=== PATIENT | female | born 1985 | race Caucasian/White ===

== ENCOUNTER → 2016-03-11 | Outpatient (CLI) | payer OTHER | LOC: M SLEEP 15:10 | PROVIDERS: ATTEND Nurse Practitioner Adult Health | DX: G47.30 Sleep apnea, unspecified (principal) ==

== ENCOUNTER → 2016-09-27 | Outpatient (REF) | payer OTHER | LOC: M LABDRWAD 20:58 → M LAB REF 20:58 | PROVIDERS: ATTEND Physician Assistant Medical | DX: M10.072 Idiopathic gout, left ankle and foot (principal) ==

== ENCOUNTER → 2016-12-08 | Outpatient (REF) | payer OTHER | LOC: M LAB REF 10:02 | PROVIDERS: ATTEND Physician Assistant | DX: N39.0 Urinary tract infection, site not specified (principal) ==

== ENCOUNTER → 2017-01-21 | Outpatient (REF) | payer OTHER | LOC: M SFHCADAM 14:58 | PROVIDERS: ATTEND Physician Assistant Medical | DX: E66.01 Morbid (severe) obesity due to excess calories (principal); F34.1 Dysthymic disorder; E89.2 Postprocedural hypoparathyroidism ==

== ENCOUNTER 2017-05-04 11:51 | Emergency (ER) | payer OTHER ==
[2017-05-04] MEDS: PERCOCET 5MG/325MG TAB PO (13:34)
[2017-05-04] MEDS: IPRATROPIUM 0.5MG/ALBUTEROL 2.5MG INH SOL UD 3ML (DUONEB)(J7620) NEB (13:37)
[2017-05-04 13:47] LABS: BASO # 0.1 10^3/uL (0.0-0.2); EOS # 0.8 10^3/uL (0.0-0.50); HEMATOCRIT 40.9 % (36.0-47.0); HEMOGLOBIN 14.4 g/dl (12.0-16.0); IMMATURE GRANULOCYTE % 0.3 % (0-3.0); LYMPH # 2.4 10^3/uL (1.5-6.5); LYMPH % 26.1 % (24.0-44.0); MEAN CORPUSCULAR HEMOGLOBIN 31.7 pg (27.0-33.0); MEAN CORPUSCULAR HGB CONC 35.2 g/dl (32.0-36.5); MEAN CORPUSCULAR VOLUME 90.1 fl (80.0-96.0); MONO # 0.5 10^3/uL (0.0-0.8); MONO % 5.2 % (0.0-5.0); NEUTROPHILS # 5.4 10^3/uL (1.8-7.7); NEUTROPHILS % 58.4 % (36.0-66.0); PLATELET COUNT, AUTOMATED 344 10^3/uL (150-450); RED BLOOD COUNT 4.54 10^6/uL (4.00-5.40); RED CELL DISTRIBUTION WIDTH 12.2 % (11.5-14.5); WHITE BLOOD COUNT 9.2 10^3/uL (4.0-10.0)
[2017-05-04 14:07] LABS: D-DIMER QUANT 439.2 ng/ml (<500)
[2017-05-04 14:27] LABS: ANION GAP 7 MEQ/L (8-16); BLOOD UREA NITROGEN 11 MG/DL (7-18); CALCIUM LEVEL 9.4 MG/DL (8.5-10.1); CARBON DIOXIDE LEVEL 26 MEQ/L (21-32); CHLORIDE LEVEL 108 MEQ/L (98-107); CPK CREATINE PHOSPHOKINASE 91 U/L (26-192); CREATININE FOR GFR 0.78 MG/DL (0.55-1.30); GLOMERULAR FILTRATION RATE > 60.0 (>60); GLUCOSE, FASTING 90 MG/DL (70-100); POTASSIUM SERUM 4.3 MEQ/L (3.5-5.1); SODIUM LEVEL 141 MEQ/L (136-145); TROPONIN I < 0.02 NG/ML (< 0.10)
[2017-05-04 14:32] LABS: MB/CK RELATIVE INDEX 1.09 (< OR =4)
[2017-05-04] MEDS ORDERED: ISOVUE-370 76% 100ML VIAL (Q9967) As Ordered (14:33)
== END 2017-05-04 16:27 | disposition home or self-care (01) ==
LOC: M ED 11:51
DX: K04.7 Periapical abscess without sinus (principal); J45.901 Unspecified asthma with (acute) exacerbation; E03.9 Hypothyroidism, unspecified; Z85.850 Personal history of malignant neoplasm of thyroid; Z88.2 Allergy status to sulfonamides; Z79.899 Other long term (current) drug therapy
CPT/HCPCS: Q9967

== ENCOUNTER → 2018-01-13 | Outpatient (REF) | payer OTHER ==
[2018-01-13 11:11] LABS: HEMATOCRIT 40.2 % (36.0-47.0); HEMOGLOBIN 13.4 g/dl (12.0-15.5); MEAN CORPUSCULAR HEMOGLOBIN 30.9 pg (27.0-33.0); MEAN CORPUSCULAR HGB CONC 33.3 g/dl (32.0-36.5); MEAN CORPUSCULAR VOLUME 92.6 fl (80.0-96.0); PLATELET COUNT, AUTOMATED 347 10^3/uL (150-450); RED BLOOD COUNT 4.34 10^6/uL (4.00-5.40); WHITE BLOOD COUNT 6.4 10^3/uL (4.0-10.0)
[2018-01-13 12:41] LABS: ALBUMIN 4.1 GM/DL (3.2-5.2); ALBUMIN/GLOBULIN RATIO 1.32 (1.00-1.93); ALKALINE PHOSPHATASE 60 U/L (45-117); ALT/SGPT 28 U/L (12-78); ANION GAP 13 MEQ/L (8-16); AST/SGOT 26 U/L (7-37); BILIRUBIN,TOTAL 0.2 MG/DL (0.2-1.0); BLOOD UREA NITROGEN 11 MG/DL (7-18); CALCIUM LEVEL 8.7 MG/DL (8.5-10.1); CARBON DIOXIDE LEVEL 19 MEQ/L (21-32); CHLORIDE LEVEL 108 MEQ/L (98-107); CHOLESTEROL LEVEL 148 MG/DL (<200); CHOLESTEROL RISK RATIO 4.352 (<5); CREATININE FOR GFR 0.82 MG/DL (0.55-1.30); FREE T4 1.36 NG/DL (0.76-1.46); GLOMERULAR FILTRATION RATE > 60.0 (>60); GLUCOSE, FASTING 76 MG/DL (70-100); HDL CHOLESTEROL 34 MG/DL (>40); LDL CHOLESTEROL 87 MG/DL (<100); NON-HDL-C 114 MG/DL; POTASSIUM SERUM 4.1 MEQ/L (3.5-5.1); SODIUM LEVEL 140 MEQ/L (136-145); THYROID STIMULATING HORMONE 0.966 uIU/ML (0.358-3.740); TOTAL 25(OH) VITAMIN D 31.2 NG/ML (30.0-100.0); TOTAL PROTEIN 7.2 GM/DL (6.4-8.2); TRIGLYCERIDES LEVEL 135 MG/DL (<150)
== END ==
LOC: M SFHCPLAZ 10:36
DX: C73 Malignant neoplasm of thyroid gland (principal); E89.0 Postprocedural hypothyroidism; Z13.220 Encounter for screening for lipoid disorders; E89.2 Postprocedural hypoparathyroidism
CPT/HCPCS: 84443

== ENCOUNTER → 2018-03-05 | Outpatient (CLI) | payer OTHER ==
[~2018-03-05] MED LIST: IBUP80TA PO; LEVO125T4 PO; PENI500T PO; PERC5TAB12 PO; PRED20TA PO; VENL75CA2 PO; VENTAER INH
--- NOTE | 2018-03-05 17:42 | REP ---
LUMBOSACRAL SPINE: Five views of the lumbosacral spine are performed. There is no compression fracture. There is normal lumbar lordosis with no evidence of spondylolysis or spondylolisthesis. Disc spaces appear well preserved. Posterior elements are intact. IMPRESSION: Negative lumbosacral spine series. Electronically Signed by Jose Maria Harris MD 03/12/2018 10:59 P
== END ==
LOC: M RAD 16:34
PROVIDERS: ATTEND Physician Assistant
DX: M54.5 Low back pain (principal)

== ENCOUNTER 2018-05-10 16:33 | Emergency (ER) | payer MEDICAID, OTHER ==
[~2018-05-10] VITALS: Ht 157.5 cm; Wt 100.5 kg
[2018-05-10] MEDS ORDERED: ACET-683 PO (16:38)
[2018-05-10] MEDS ORDERED: PRENCHW PO (16:38)
[2018-05-10] MEDS ORDERED: ACETAMINOPHEN 325 MG TAB PO ONE (17:00)
[2018-05-10 17:14] LABS: BASO # 0.1 10^3/uL (0.0-0.2); BASO % 0.7 % (0.0-1.0); EOS # 0.1 10^3/uL (0.0-0.50); EOS % 1.4 % (0.0-3.0); HEMATOCRIT 40.5 % (36.0-47.0); HEMOGLOBIN 13.6 g/dl (12.0-15.5); LYMPH # 2.7 10^3/uL (1.5-4.5); LYMPH % 26.7 % (24.0-44.0); MEAN CORPUSCULAR HEMOGLOBIN 30.4 pg (27.0-33.0); MEAN CORPUSCULAR HGB CONC 33.6 g/dl (32.0-36.5); MEAN CORPUSCULAR VOLUME 90.6 fl (80.0-96.0); MONO # 0.5 10^3/uL (0.0-0.8); NEUTROPHILS # 6.6 10^3/uL (1.8-7.7); NEUTROPHILS % 65.9 % (36.0-66.0); PLATELET COUNT, AUTOMATED 320 10^3/uL (150-450); RED BLOOD COUNT 4.47 10^6/uL (4.00-5.40)
[2018-05-10 18:11] LABS: BLOOD UREA NITROGEN 8 MG/DL (7-18); CALCIUM LEVEL 9.5 MG/DL (8.5-10.1); CARBON DIOXIDE LEVEL 27 MEQ/L (21-32); CHLORIDE LEVEL 105 MEQ/L (98-107); CREATININE FOR GFR 0.75 MG/DL (0.55-1.30); GLOMERULAR FILTRATION RATE > 60.0 (>60); GLUCOSE, FASTING 84 MG/DL (70-100); HCG, SERUM QUANTITATIVE 55105 MIU/ML; POTASSIUM SERUM 4.3 MEQ/L (3.5-5.1); SODIUM LEVEL 139 MEQ/L (136-145)
[2018-05-10] MEDS ORDERED: LACT10SO29 PO (19:26)
[2018-05-10 19:32] VITALS: BP 71/68
--- NOTE | 2018-05-10 20:06 | REPVR ---
EXAM: US First Trimester, Transabdominal EXAM DATE/TIME: 05/10/2018 6:42 PM CLINICAL HISTORY: 32 years and configuration, female; Pain; complicated by abdominal or pelvic pain; Left lower quadrant; First trimester; Gestational age or lmp: 7w 3d; ; Additional info: Left adenexal pain TECHNIQUE: Real-time transabdominal obstetrical ultrasound of the maternal pelvis and a first trimester , less than 14 weeks 0 days, with image documentation. COMPARISON: CR Spine. Lumbosacral, complete 03/05/2018 4:54 PM FINDINGS: GESTATION: Gestation: There is a intrauterine gestational sac seen within the uterus on the sagittal and transverse scans. The gestational sac is very oval and flattened at the central portion. Below the gestational sac there is a hypoechoic focus measuring approximately 1 CM which may represent an area of implantation bleed. The pole is estimated at 7 weeks 3 days measuring crown rump length. A well-formed yolk sac is identified measuring 3 mm. This is very early in gestation in all parameters cannot be assessed. Recommend a complete survey at 18-20 weeks gestation. Heart rate: There is good cardiac activity within the pole estimated at 150 beats per minute. Abdomen: Normal appearing urinary bladder. MATERNAL: Uterus: Unremarkable. Cervix: The normal appearing cervix. There is a nabothian cyst at the upper cervix. Right adnexa: There is vascular flow of the right ovary with no evidence of torsion. The right ovary measures 3 CM in length by 1.7 CM in thickness. There is a 2 CM hemorrhagic corpus luteum right ovary. Left adnexa: The left ovary measures 3 CM in length by 1.3 cm thickness there is vascular flow both the left ovary with no evidence of torsion. Intraperitoneal: No evidence of free fluid in the cul-de-sac. IMPRESSION: 1. An intrauterine gestational sac is identified but elongated and very oval in appearance. 2. pole identified and estimated at 7 weeks 3 days. Cardiac activity at 150 beats per minute. 3. Small area of presumed implantation bleed at the internal cervical os. Electronically signed by: Max Lentz On 05/10/2018 20:06:25 PM
== END 2018-05-10 19:41 | disposition home or self-care (01) ==
LOC: M ED 16:33
DX: O99.611 Diseases of the digestive system complicating pregnancy, first trimester (principal); K59.00 Constipation, unspecified; O20.8 Other hemorrhage in early pregnancy; O34.81 Maternal care for other abnormalities of pelvic organs, first trimester; N83.202 Unspecified ovarian cyst, left side; Z79.899 Other long term (current) drug therapy; Z88.2 Allergy status to sulfonamides; Z3A.01 Less than 8 weeks gestation of pregnancy

== ENCOUNTER → 2018-05-29 | Outpatient (CLI) | payer MEDICAID ==
[~2018-05-29] MED LIST changes: +ACET-683 PO; +LACT10SO29 PO; +PRENCHW PO
[2018-05-29 18:41] LABS: BASO # 0.1 10^3/uL (0.0-0.2); BASO % 0.4 % (0.0-1.0); EOS # 0.2 10^3/uL (0.0-0.50); EOS % 1.9 % (0.0-3.0); HEMATOCRIT 36.2 % (36.0-47.0); HEMOGLOBIN 12.4 g/dl (12.0-15.5); LYMPH # 2.9 10^3/uL (1.5-4.5); LYMPH % 23.8 % (24.0-44.0); MEAN CORPUSCULAR HEMOGLOBIN 31.2 pg (27.0-33.0); MEAN CORPUSCULAR HGB CONC 34.3 g/dl (32.0-36.5); MEAN CORPUSCULAR VOLUME 91.2 fl (80.0-96.0); MONO # 0.5 10^3/uL (0.0-0.8); MONO % 4.3 % (0.0-5.0); NEUTROPHILS # 8.3 10^3/uL (1.8-7.7); NEUTROPHILS % 69.2 % (36.0-66.0); PLATELET COUNT, AUTOMATED 365 10^3/uL (150-450); RED BLOOD COUNT 3.97 10^6/uL (4.00-5.40)
[2018-05-29 19:08] LABS: FREE T4 1.05 NG/DL (0.76-1.46)
[2018-05-29 19:21] LABS: RUBELLA IgG QUALITATIVE IMMUNE (IMMUNE)
[2018-05-29 19:50] LABS: HIV 1&2 SCREEN CENTAUR NEGATIVE (NEGATIVE)
[2018-05-29 20:13] LABS: CHLAMYDIA DNA AMPLIFICATION NEGATIVE (NEGATIVE); GC DNA AMPLIFICATION NEGATIVE (NEGATIVE)
[2018-06-01 10:56] LABS: HEPATITIS C VIRUS ABY INDEX 0.1 INDEX (<0.8)
== END ==
LOC: M SMT 15:37
PROVIDERS: ATTEND Obstetrics & Gynecology
DX: Z34.81 Encounter for supervision of other normal pregnancy, first trimester (principal)

== ENCOUNTER 2018-07-04 12:31 | Emergency (ER) | payer MEDICAID, OTHER ==
[~2018-07-04] VITALS: Ht 157.5 cm; Wt 98.2 kg
[2018-07-04] MEDS ORDERED: BUTA-198 (12:40)
[2018-07-04] MEDS ORDERED: BUPR150T3 (12:40)
[2018-07-04] MEDS ORDERED: FLUT1BLS5 (12:40)
[2018-07-04] MEDS ORDERED: METOCLOPRAMIDE INJ 10MG/2ML VIAL (J2765) IV ONE (13:30)
[2018-07-04] MEDS ORDERED: ACETAMINOPHEN 325 MG TAB PO ONE (13:30)
[2018-07-04] MEDS ORDERED: NS 1,000 ML IV ONE (13:30)
[2018-07-04] MEDS ORDERED: diphenhydrAMINE INJ 50MG/ML VIAL (J1200) IV ONE (13:30)
[2018-07-04 13:43] LABS: BASO % 0.4 % (0.0-1.0); EOS # 0.1 10^3/uL (0.0-0.50); EOS % 0.9 % (0.0-3.0); HEMATOCRIT 34.2 % (36.0-47.0); HEMOGLOBIN 11.7 g/dl (12.0-15.5); LYMPH % 19.2 % (24.0-44.0); MEAN CORPUSCULAR HGB CONC 34.2 g/dl (32.0-36.5); MEAN CORPUSCULAR VOLUME 90.7 fl (80.0-96.0); MONO # 0.5 10^3/uL (0.0-0.8); MONO % 4.5 % (0.0-5.0); NEUTROPHILS # 7.9 10^3/uL (1.8-7.7); NEUTROPHILS % 74.5 % (36.0-66.0); PLATELET COUNT, AUTOMATED 283 10^3/uL (150-450); RED BLOOD COUNT 3.77 10^6/uL (4.00-5.40); WHITE BLOOD COUNT 10.6 10^3/uL (4.0-10.0)
[2018-07-04 14:01] LABS: ERYTHROCYTE SEDIMENTATION RATE 46 mm/hr (0-20)
[2018-07-04 14:08] LABS: ALBUMIN 3.4 GM/DL (3.2-5.2); ALT/SGPT 10 U/L (12-78); BILIRUBIN,DIRECT < 0.1 MG/DL (0.0-0.2); BILIRUBIN,TOTAL 0.2 MG/DL (0.2-1.0); BLOOD UREA NITROGEN 4 MG/DL (7-18); CALCIUM LEVEL 8.6 MG/DL (8.5-10.1); CARBON DIOXIDE LEVEL 26 MEQ/L (21-32); CHLORIDE LEVEL 107 MEQ/L (98-107); CREATININE FOR GFR 0.59 MG/DL (0.55-1.30); GLOMERULAR FILTRATION RATE > 60.0 (>60); GLUCOSE, FASTING 98 MG/DL (70-100); MAGNESIUM LEVEL 1.8 MG/DL (1.8-2.4); POTASSIUM SERUM 3.7 MEQ/L (3.5-5.1); SODIUM LEVEL 139 MEQ/L (136-145); TOTAL PROTEIN 6.5 GM/DL (6.4-8.2); URIC ACID 3.9 MG/DL (2.6-6.0)
[2018-07-04] MEDS ORDERED: PERCOCET 5MG/325MG TAB PO ONE (14:45)
[2018-07-04] MEDS ORDERED: PERC5TAB12 PO (15:36)
[2018-07-04 15:40] VITALS: BP 109/59
--- NOTE | 2018-07-05 07:14 | REP ---
LIMITED OB ULTRASOUND: HISTORY: Unable to obtain heart rate. COMPARISON: 05/10/2018 A single intrauterine is present in vertex presentation. heart rate is 152 beats per minute. The placenta is posterior. There is no placenta previa or abruption. Amniotic fluid index is 7.8 cm. The amniotic fluid is within normal limits. Cervix length is 4.5 cm. IMPRESSION: A single intrauterine is present in vertex presentation. Gestational age by ultrasound is 15 weeks 2 days. heart rate is 152 beats per minute. A repeat examination at 19-20 weeks is recommended for further evaluation. Electronically Signed by Mukesh Tristan MD 07/05/2018 08:32 A
== END 2018-07-04 15:44 | disposition home or self-care (01) ==
LOC: M ED 12:31
DX: O99.352 Diseases of the nervous system complicating pregnancy, second trimester (principal); G43.909 Migraine, unspecified, not intractable, without status migrainosus; Z3A.15 15 weeks gestation of pregnancy; O99.512 Diseases of the respiratory system complicating pregnancy, second trimester; J45.909 Unspecified asthma, uncomplicated; O99.282 Endocrine, nutritional and metabolic diseases complicating pregnancy, second trimester; E07.9 Disorder of thyroid, unspecified; Z79.899 Other long term (current) drug therapy; Z88.1 Allergy status to other antibiotic agents; Z88.2 Allergy status to sulfonamides
CPT/HCPCS: 76815; 80048; 80076; 83735; 84550; 85025; 85652; 86140; 96361; 96374; 96375; 99284; J1200; J2765

== ENCOUNTER → 2018-07-24 | Outpatient (CLI) | payer OTHER ==
[~2018-07-24] MED LIST changes: +BUPR150T3; +BUTA-198; +FLUT1BLS5
--- NOTE | 2018-07-25 08:21 | REP ---
HISTORY: anatomy. COMPARISON: None. Multiple ultrasonographic images of the gravid uterus show a single living intrauterine gestation in the cephalic presentation. Doppler interrogation of the heart shows a heart rate of 142 beats per minute. The placenta is posterior and not low lying. The subjective amniotic fluid volume is within normal limits. The cervix measures 4.9 cm in length and is closed. Evaluation of the maternal adnexal spaces showed no abnormalities. BPD 4.0 cm = 18 weeks 2 days HC 15.1 cm = 18 weeks 1 day AC 13.2 cm = 18 weeks 5 days FL 2.8 cm = 18 weeks 5 days The estimated weight is 250 grams which is at the 68th percentile for an 18 week 1 day gestational age. Structures visualized as unremarkable are as follows: Thalami, cavum septum pellucidum, cerebellum, cisterna magna, stomach, three-vessel umbilical cord, cord insertion, and urinary bladder. Structures suboptimally visualized are as follows: facial features with upper lip, four chamber heart, right and left ventricular outflow tracts, kidneys, spine, and extremities. IMPRESSION: Single living intrauterine gestation as described above with an estimated gestational age of 18 weeks 3 days via composite criteria and an estimated date of delivery of 12/22/2018 by today's exam. No anomalies were detected, however, I recommend a followup examination to better visualize those structures not well seen today as described above. Electronically Signed by Quentin Gould DO 07/25/2018 08:34 A
== END ==
LOC: M RAD 16:23
PROVIDERS: ATTEND Specialist
DX: O09.212 Supervision of pregnancy with history of pre-term labor, second trimester (principal); Z3A.18 18 weeks gestation of pregnancy

== ENCOUNTER → 2018-08-12 | Outpatient (REF) | payer OTHER | LOC: M LAB REF 13:00 | PROVIDERS: ATTEND Advanced Practice Midwife | DX: O09.212 Supervision of pregnancy with history of pre-term labor, second trimester (principal); Z3A.20 20 weeks gestation of pregnancy; D04.22 Carcinoma in situ of skin of left ear and external auricular canal ==

== ENCOUNTER → 2018-08-14 | Outpatient (CLI) | payer OTHER ==
[2018-08-14 12:12] LABS: FREE T4 1.36 NG/DL (0.76-1.46); THYROID STIMULATING HORMONE 0.219 uIU/ML (0.358-3.740)
--- NOTE | 2018-08-14 15:34 | REP ---
REASON: Followup anatomy. The prior examination failed to optimally visualize facial features, four chamber heart, outflow tracts, kidneys, and spine. Multiple ultrasonographic images of the gravid uterus show a single living intrauterine gestation in the yas breech presentation. Doppler interrogation of the heart shows a heart rate of 136 beats per minutes. The placenta is posterior and not low lying. The subjective amniotic fluid volume is within normal limits. The cervix measures 4.3 cm in length and is closed. Evaluation of the maternal adnexal spaces shows no abnormalities. The technologist has made note in the worksheet that exam quality was poor due to maternal body habitus. The facial features were still suboptimally visualized. The four chamber heart view as well as both right and left ventricular outflow tracts were again suboptimally visualized. The kidneys were again seen suboptimally. The spine was seen to be within normal limits. BPD 4.7 cm = 20 weeks 1 day HC 17.8 cm = 20 weeks 2 days AC 15.9 cm = 21 weeks 0 days FL 3.4 cm = 20 weeks 6 days The estimated weight is 379 grams which is at the 37th percentile for a 21 week 1 day gestational age. IMPRESSION: Single living intrauterine gestation as described above with an estimated gestational age of 20 weeks 5 days via composite criteria and an estimated date of delivery of 12/27/2018. The anatomical screen remains incomplete with those structures seen suboptimally as described above. Electronically Signed by Quentin Gould DO 08/14/2018 04:47 P
== END ==
LOC: M RAD 09:41
PROVIDERS: ATTEND Advanced Practice Midwife
DX: Z34.82 Encounter for supervision of other normal pregnancy, second trimester (principal)

== ENCOUNTER → 2018-09-24 | Outpatient (CLI) | payer OTHER ==
--- NOTE | 2018-09-24 19:44 | REP ---
Obstetric sonography: History: Supervision of , followup anatomy. cardiac structures, face and profile, kidneys. Findings: Scanning through the gravid uterus demonstrates a viable single intrauterine gestation in a cephalic lie. motion is observed and heart rate is recorded at 131 beats per minute. A posterior grade 0 placenta is seen without evidence of previa or abruption. Amniotic fluid is subjectively normal. Closed cervical length is 4.6 cm. No extrauterine abnormalities observed. There has been appropriate interval growth. Umbilical cord is seen draping over the neck. No abnormality is observed. face and profile is still less than optimally seen. Abdominal wall cord insertion, three-vessel cord, and upper extremities are less than optimally seen today but were visualized previously. The following additional anatomic structures are identified today and are felt to be unremarkable: cranium, choroid plexus, cavum, cerebellum and posterior fossa, four-chamber heart with left and right ventricular outflow tract views, lungs, diaphragm, left-sided stomach, kidneys and bladder, spine, lower extremities. Biometry chart: BPD 6.4 cm = 25 weeks 6 days HC 24.4 cm = 26 weeks 4 days AC 23.1 cm = 27 weeks 3 days FL 5.1 cm = 27 weeks 3 days HL 4.5 cm = 26 weeks 5 days HC/AC ratio normal 1.06. Cephalic index normal 0.71. Estimated weight 1042 grams, 2 pounds 4 ounces, 48th percentile for 27 weeks 0 days. Impression: Viable single intrauterine gestation at 26 weeks 5 days by today's composite sonographic criteria. IONA by today's sonography December 26, 2018. face and profile view still less than optimally achieved due to position. anatomic survey is felt to be otherwise complete in conjunction with the prior study. Electronically Signed by Chava Villaseñor MD 09/25/2018 07:45 A
== END ==
LOC: M RAD 16:50
PROVIDERS: ATTEND Advanced Practice Midwife
DX: O09.212 Supervision of pregnancy with history of pre-term labor, second trimester (principal); Z3A.26 26 weeks gestation of pregnancy

== ENCOUNTER → 2018-10-07 | Outpatient (REF) | payer OTHER | LOC: M LAB REF 13:28 | PROVIDERS: ATTEND Advanced Practice Midwife | DX: O09.212 Supervision of pregnancy with history of pre-term labor, second trimester (principal) ==

== ENCOUNTER → 2018-10-09 | Outpatient (CLI) | payer OTHER ==
[2018-10-09 13:38] LABS: BASO % 0.3 % (0.0-1.0); EOS # 0.1 10^3/uL (0.0-0.50); HEMATOCRIT 33.5 % (36.0-47.0); HEMOGLOBIN 11.2 g/dl (12.0-15.5); LYMPH # 1.8 10^3/uL (1.5-4.5); MEAN CORPUSCULAR HEMOGLOBIN 31.4 pg (27.0-33.0); MEAN CORPUSCULAR HGB CONC 33.4 g/dl (32.0-36.5); MEAN CORPUSCULAR VOLUME 93.8 fl (80.0-96.0); MONO # 0.5 10^3/uL (0.0-0.8); MONO % 4.8 % (0.0-5.0); NEUTROPHILS # 8.5 10^3/uL (1.8-7.7); NEUTROPHILS % 76.6 % (36.0-66.0); PLATELET COUNT, AUTOMATED 331 10^3/uL (150-450); RED BLOOD COUNT 3.57 10^6/uL (4.00-5.40); WHITE BLOOD COUNT 11.1 10^3/uL (4.0-10.0)
[2018-10-09 13:59] LABS: FREE T4 0.84 NG/DL (0.76-1.46); THYROID STIMULATING HORMONE 0.427 uIU/ML (0.358-3.740)
== END ==
LOC: M LAB 11:43
PROVIDERS: ATTEND Advanced Practice Midwife
DX: O09.212 Supervision of pregnancy with history of pre-term labor, second trimester (principal); Z3A.00 Weeks of gestation of pregnancy not specified

== ENCOUNTER → 2018-10-12 | Outpatient (CLI) | payer OTHER ==
--- NOTE | 2018-10-13 06:00 | REP ---
Clinical: Anatomical evaluation. Comparison: Cephalic . Findings: Examination demonstrates a single live intrauterine in cephalic presentation. motion is identified by technologist. Placenta is noted posteriorly and grade I without evidence for placenta previa or abruption. Amniotic fluid volume is normal. Cervix measures 3.4 cm in length and appears closed. No evidence for nuchal cord. Gestational age by 29 weeks 4 days with IONA 12/24/2018 . Gestational age by current measurements 29 weeks 1 day with IONA 12/27/2016 . FHR equals 137 beats per minute. Estimated weight 1322 grams ( 29th percentile). Amniotic fluid index: 8.4 cm Umbilical cord SD ratio: 3.92 Normal facial features noted. Impression: Single live intrauterine in cephalic presentation demonstrating appropriate interval growth. Normal facial features noted. Remainder of the anatomical assessment was complete and normal on prior examinations. Electronically Signed by John Hawkins MD 10/13/2018 05:52 A
== END ==
LOC: M RAD 17:30
PROVIDERS: ATTEND Advanced Practice Midwife
DX: O09.212 Supervision of pregnancy with history of pre-term labor, second trimester (principal); Z3A.29 29 weeks gestation of pregnancy

== ENCOUNTER 2018-11-24 19:46 | Outpatient (CLI) | payer OTHER ==
[~2018-11-24] VITALS: Ht 157.5 cm; Wt 100.5 kg
== END 2018-11-24 21:35 | disposition home or self-care (01) ==
LOC: EDBD 19:46 → M LDO 19:46
PROVIDERS: ATTEND Obstetrics & Gynecology
DX: O36.8130 Decreased fetal movements, third trimester, not applicable or unspecified (principal); Z3A.36 36 weeks gestation of pregnancy

== ENCOUNTER → 2018-11-26 | Outpatient (REF) | payer OTHER ==
[~2018-11-26] MED LIST changes: +ZOLO50TA PO
== END ==
LOC: M LAB REF 18:12
PROVIDERS: ATTEND Advanced Practice Midwife
DX: Z34.83 Encounter for supervision of other normal pregnancy, third trimester (principal)

== ENCOUNTER 2018-11-29 21:21 | Outpatient (CLI) | payer OTHER ==
[~2018-11-29] VITALS: Ht 157.5 cm; Wt 99.6 kg
[~2018-11-29 21:21] MED LIST changes: -ZOLO50TA PO
[2018-11-29 21:36] VITALS: BP 129/67
[2018-11-29] MEDS ORDERED: ZOLO50TA PO (21:49)
== END 2018-11-30 01:08 | disposition home or self-care (01) ==
LOC: M LDO 21:21
PROVIDERS: ATTEND Specialist
DX: O47.03 False labor before 37 completed weeks of gestation, third trimester (principal); Z3A.36 36 weeks gestation of pregnancy

== ENCOUNTER 2018-12-13 16:49 | Outpatient (CLI) | payer OTHER ==
[~2018-12-13] VITALS: Ht 157.5 cm; Wt 103.2 kg
[~2018-12-13 16:49] MED LIST changes: +ZOLO50TA PO
[2018-12-13 17:08] VITALS: BP 131/81
[2018-12-13] MEDS ORDERED: LEVO200T4 PO (17:12)
== END 2018-12-13 17:54 | disposition home or self-care (01) ==
LOC: M LDO 16:49
PROVIDERS: ATTEND Obstetrics & Gynecology
DX: O47.1 False labor at or after 37 completed weeks of gestation (principal); Z3A.38 38 weeks gestation of pregnancy

== ENCOUNTER 2018-12-16 11:54 | Outpatient (CLI) | payer OTHER ==
[~2018-12-16] VITALS: Ht 157.5 cm; Wt 102.2 kg
[~2018-12-16 11:54] MED LIST changes: +LEVO200T4 PO
[2018-12-16 12:24] VITALS: BP 123/77
--- NOTE | 2018-12-16 13:40 | IPN ---
DATE: 12/16/2018 Livier is a 33-year-old 3, para 0-1-1-1 at 38-6/7 weeks with EDC of 12/24/2018 based on last menstrual period and confirmed by 8 week ultrasound. She presents to labor and delivery today with report of questionable leakage of fluid since about 11:30 last night. She does report some mild intermittent contractions. Denies vaginal bleeding. The fetus has been active. Her care was initiated at [facility] in the very first trimester. course complicated by a history of a delivery. She has been receiving Garcia injections from week 16 through week 36. She has a history of thyroid cancer and a thyroidectomy. She is on thyroid replacement, Synthroid 225 mcg daily. Asthma has been well controlled, history of an abnormal Pap and a history of depression, and she is currently taking Wellbutrin. OBSTETRICAL HISTORY: February 2015, 34 weeks gestation, 5 pound 12 ounce male, vaginal delivery following PPROM. December 2010 spontaneous miscarriage. OBSTETRIC LABS: O positive. Antibody screen negative. Abnormal Pap, was HPV positive. Rubella immune. VDRL nonreactive. Urine culture no growth. Hep B surface antigen negative. HIV negative. Hep C antibody nonreactive. Gonorrhea and chlamydia negative. Gestational diabetic screening normal at 114. Group B Streptococcus (GBS) is negative. Her most recent TSH is normal. PAST MEDICAL HISTORY: Depression. Thyroid cancer. Asthma. Seasonal allergies. Abnormal Pap smear. Childhood varicella. SURGERIES: Tonsillectomy. Thyroidectomy. FAMILY HISTORY: Hypertension, Raynaud's disease and depression. SOCIAL HISTORY: The patient is single however the father of the baby is involved. She denies smoking, alcohol use and illicit drug use. She does have a history of HPV. She denies history of abuse physical, sexual and emotional. ALLERGIES: 1. Seasonal allergies. 2. SULFA. CURRENT MEDICATIONS: - Zofran - Esgic - Advair - Wellbutrin - levothyroxine - albuterol - Pulmicort - vitamin OBJECTIVE: Blood pressure is 132/73, pulse is 90. heart rate is 135 with moderate variability, positive accelerations, no decelerations. Contractions every 5 minutes, nonpalpable. STERILE SPECULUM EXAM: Negative Valsalva. Negative pooling. Negative Nitrazine. Negative ferning. Sterile vaginal exam 2 cm dilated, 80% effaced, -2 station, posterior and soft, can palpate membranes across the head. ASSESSMENT: Intrauterine at 38-6/7 weeks. heart rate category 1. Not ruptured. PLAN: Discharge the patient to home. She is scheduled for social induction tomorrow. She has been advised of the instructions to await call pending labor and delivery census. I did review signs and symptoms of labor, movement counts, danger signs and access to care. Patient is agreeable to this plan and she has had all of her questions answered.
== END 2018-12-16 13:10 | disposition home or self-care (01) ==
LOC: M LDO 11:54
PROVIDERS: ATTEND Advanced Practice Midwife
DX: O47.1 False labor at or after 37 completed weeks of gestation (principal); Z3A.38 38 weeks gestation of pregnancy

== ENCOUNTER 2018-12-17 12:04 | Inpatient (IN) | payer OTHER ==
[~2018-12-17] VITALS: Ht 157.5 cm; Wt 102.0 kg
[2018-12-17] VITALS (37 sets, daily range): BP systolic 106–151; BP diastolic 58–98
[2018-12-17 12:52] LABS: HEMATOCRIT 37.5 % (36.0-47.0); HEMOGLOBIN 12.6 g/dl (12.0-15.5); MEAN CORPUSCULAR HEMOGLOBIN 30.6 pg (27.0-33.0); MEAN CORPUSCULAR HGB CONC 33.6 g/dl (32.0-36.5); PLATELET COUNT, AUTOMATED 289 10^3/uL (150-450); RED BLOOD COUNT 4.12 10^6/uL (4.00-5.40); WHITE BLOOD COUNT 10.2 10^3/uL (4.0-10.0)
[2018-12-17] MEDS: LR 1,000 ML IV SCH ×2 (13:48→16:15)
[2018-12-17] MEDS ORDERED: OXYTOCIN DRIP 30 UNITS in IV 1 EA IV SCH (14:00)
[2018-12-17] MEDS ORDERED: FENTANYL 2MCG/ML ROPIVACAINE 0.2% IN 0.9% NACL 100ML IVBAG As Ordered ONE (15:48)
[2018-12-17] MEDS ORDERED: FENTANYL/ROPIVACAINE/NACL BAG 100 ML EPIDURAL SCH (17:15)
[2018-12-17] MEDS ORDERED: NALOXONE INJ 0.4 MG/1 ML VIAL (J2310) IV PRN (17:15)
[2018-12-17] MEDS ORDERED: LACTATED RINGER'S 1000 ML IV PRN (17:15)
[2018-12-17] MEDS ORDERED: diphenhydrAMINE INJ 50MG/ML VIAL (J1200) IV PRN (17:15)
[2018-12-17] MEDS ORDERED: REFRIGERATOR IV KEYS XX PRN (17:15)
[2018-12-17] MEDS ORDERED: EPIDURAL COMMENT XX SCH (17:15)
[2018-12-17] MEDS ORDERED: EPIDURAL/PCA KEYS XX PRN (17:15)
[2018-12-17] MEDS ORDERED: ONDANSETRON 4MG/2ML VIAL (J2405) IV PRN (17:15)
[2018-12-17] MEDS ORDERED: LACTATED RINGER'S 1000 ML IV STA (17:21)
[2018-12-17] MEDS ORDERED: ALBUTEROL 90 MCG/ACT 8GM HFA INHALER INH PRN ×2 (17:30→19:24)
[2018-12-17] MEDS: ePHEDrine SULFATE 25 MG/5 ML(5MG/ML) SYRINGE IV PRN ×3 (18:28→18:41)
[2018-12-17] MEDS ORDERED: ACETAMINOPHEN 500 MG TAB PO PRN (22:15)
[2018-12-18 00:19] VITALS: BP 132/62
[2018-12-18 00:24] LABS: CORD GAS ABE V -4.8; CORD GAS HCO3 V 20.5 MEQ/L; CORD GAS O2 SAT V 68.3 %; CORD GAS PCO2 V 39.1 mmHg; CORD GAS PH V 7.337 UNITS; CORD GAS PO2 V 28.9 mmHg; CORD GAS SBC V 19.8 MEQ/L; CORD GAS TCO2 V 21.7 MEQ/L
[2018-12-18 00:25] LABS: CORD GAS ABE A -5.5; CORD GAS HCO3 A 24.2 MEQ/L; CORD GAS O2 SAT A 40.5 %; CORD GAS PH A 7.202 UNITS; CORD GAS PO2 A 20.7 mmHg; CORD GAS SBC A 18.5 MEQ/L; CORD GAS TCO2 A 26.1 MEQ/L
[2018-12-18] MEDS ORDERED: AMPICILLIN SOD/SULBACTAM SOD 3 GM in D5W MINI-BAG PLUS 100 ML IV ONE (00:30)
[2018-12-18] MEDS ORDERED: OXYTOCIN DRIP 30 UNITS in IV 1 EA IV SCH (00:31)
[2018-12-18] MEDS ORDERED: ONDANSETRON 4MG/2ML VIAL (J2405) IV PRN (00:45)
[2018-12-18] MEDS ORDERED: ACETAMINOPHEN TAB 650MG DOSE (2X325MG) PO PRN (00:45)
[2018-12-18] MEDS ORDERED: RHOGAM 300 MCG (1500 IU) INJ (J2790) IM SCH (00:45)
[2018-12-18] MEDS ORDERED: MOM 30ML SUSPENSION UDC PO PRN (00:45)
[2018-12-18] MEDS ORDERED: IBUPROFEN 600 MG TAB PO PRN (00:45)
[2018-12-18] MEDS ORDERED: MEASLES,MUMPS,RUBELLA VACCINE INJ (MMR-II) (90707) SC SCH (00:45)
[2018-12-18] MEDS ORDERED: DOCUSATE SODIUM 100 MG CAP PO PRN (00:45)
[2018-12-18] MEDS ORDERED: METHYLERGONOVINE MALEATE 0.2 MG TAB PO PRN (00:45)
[2018-12-18] MEDS ORDERED: ANUSOL HC CREAM 30GM TOP PRN (00:45)
[2018-12-18] MEDS ORDERED: DIBUCAINE 1% OINTMENT 30GM TOP PRN (00:45)
[2018-12-18 00:50] VITALS: BP 133/71
[2018-12-18 01:19] VITALS: BP 130/65
--- NOTE | 2018-12-18 02:54 | DN ---
DATE: 12/18/2018 TIME OF : 0004 GENDER: Female. SCORES: 8 and 9. WEIGHT: 6 pounds 7 ounces, 2930 grams. ANESTHESIA: Epidural. ESTIMATED BLOOD LOSS: 300 mL. COUNTS: Five laparotomy sponges accounted for prior to and after delivery. Two sharps removed from delivery field. CORD GAS: 7.20/7.33, base excess of -5.5/-4.8 respectively. DELIVERY NOTE: On 12/18/2018, at 0004, Ms. Zelaya, a 33-year-old 3, now para 2, had a spontaneous vaginal delivery of a live born female infant, scores 8 and 9. Weight was 2930 grams, 6 pounds 7 ounces. Head was delivered occiput anterior (OA) over intact perineum. There was a nuchal cord times two, which was manually reduced followed by delivery shoulders and corpus. was handed to mom with a good cry. Cord was clamped times two, was cut by support person under my direction. Cord gases were obtained. Placenta was then drained and delivered grossly intact. A premixed bag of 500 mL of normal saline with 30 units of Pitocin was then bolused along with uterine massage. The uterus was firm. On inspection, the cervix and perineum was grossly intact and hemostatic. Mom and baby recovered in stable condition. Shortly after delivery, Ms. Zelaya spiked a fever and she will receive one dose of Unasyn for treatment of chorioamnionitis. Mom has decided to name her daughter Shona. NERISSA
[2018-12-18 03:00] VITALS: BP 105/57
[2018-12-18] MEDS: IBUPROFEN 800 MG TAB PO PRN ×3 (03:23→20:31)
[2018-12-18 06:00] VITALS: BP 132/80
[2018-12-18] MEDS: LEVOTHYROXINE 100MCG TABLET (0.1MG) PO SCH (06:07)
[2018-12-18] MEDS: PRENATAL VITAMINS CHEWABLE TABLET PO SCH (09:09)
[2018-12-18] MEDS: ACETAMINOPHEN 500 MG TAB PO PRN ×2 (09:10→18:03)
[2018-12-18 17:57] VITALS: BP 129/80
[2018-12-19] MEDS: ACETAMINOPHEN 500 MG TAB PO PRN ×2 (01:20→10:30)
[2018-12-19 05:29] VITALS: BP 113/57
[2018-12-19] MEDS: LEVOTHYROXINE 100MCG TABLET (0.1MG) PO SCH (06:26)
[2018-12-19] MEDS: IBUPROFEN 800 MG TAB PO PRN ×2 (06:26→18:48)
--- NOTE | 2018-12-19 07:13 | IPNPDOC ---
Text Note Date of Service The patient was seen on 12/19/18. NOTE Feels well. Adequate pain management. Voiding VSS, afebrile, normotensive Fundus firm, NT, down 2 Lochia rubra light without odor Perineum well approximated without edema PPD #1 Routine care. Anticipate D/C in am VS,Fishbone, I+O VS, Fishbone, I+O Vital Signs Date Time Temp Pulse Resp B/P (MAP) Pulse Ox O2 Delivery O2 Flow Rate FiO2 12/19/18 05:29 98.2 54 16 113/57 (75) 12/18/18 06:00 96 Alexia Yusuf CNM Dec 19, 2018 07:13
[2018-12-19] MEDS ORDERED: INFLUENZA QUADRIVALENT PF VACCINE 0.5ML SYRINGE (90686) IM ONE ×2 (09:00→12:00)
[2018-12-19] MEDS ORDERED: ADACEL/BOOSTRIX VACCINE (DIPHTH/PERTUSS/ACELL/TETANUS)0.5ML SYR (90715) IM ONE ×2 (09:00→12:00)
[2018-12-19] MEDS: PRENATAL VITAMINS CHEWABLE TABLET PO SCH (10:30)
[2018-12-19 18:00] VITALS: BP 129/83
[2018-12-20] MEDS: LEVOTHYROXINE 100MCG TABLET (0.1MG) PO SCH (05:41)
[2018-12-20 06:15] VITALS: BP 128/65
[2018-12-20] MEDS: PRENATAL VITAMINS CHEWABLE TABLET PO SCH (08:52)
[2018-12-20] MEDS ORDERED: IBUP80TA PO (11:25)
[2018-12-20] MEDS: ACETAMINOPHEN 500 MG TAB PO PRN (11:34)
== END 2018-12-20 15:00 | disposition home or self-care (01) | DRG 560 ==
LOC: M LDI 12:04 → M OBS 12-18 02:39
PROVIDERS: ADMIT Obstetrics & Gynecology; ATTEND Obstetrics & Gynecology
PROC: 3E033VJ Introduction of Other Hormone into Peripheral Vein, Percutaneous Approach (ICD-10-PCS; 2018-12-17)
PROC: 10E0XZZ Delivery of Products of Conception, External Approach (ICD-10-PCS; principal; 2018-12-18)
DX: O69.1XX0 Labor and delivery complicated by cord around neck, with compression, not applicable or unspecified (principal); O41.1230 Chorioamnionitis, third trimester, not applicable or unspecified; O99.344 Other mental disorders complicating childbirth; Z3A.39 39 weeks gestation of pregnancy; O99.284 Endocrine, nutritional and metabolic diseases complicating childbirth; E89.0 Postprocedural hypothyroidism; F32.9 Major depressive disorder, single episode, unspecified; Z37.0 Single live birth

== ENCOUNTER 2019-08-13 12:42 | Day surgery (SDC) | payer OTHER ==
[~2019-08-13] VITALS: Ht 157.5 cm; Wt 107.5 kg
[~2019-08-13 12:42] MED LIST changes: +ABIL1TAB11 PO; +ABIL1TAB13 PO; +BUPR150T3 PO; +BUSP10TA PO; -LACT10SO29 PO; +LACT20EL PO; +LR 1,000 ML IV ONE; +WELLTAB40 PO
[2019-08-13 13:14] LABS: HEMATOCRIT 41.2 % (36.0-47.0); HEMOGLOBIN 13.7 g/dl (12.0-15.5); MEAN CORPUSCULAR HEMOGLOBIN 30.8 pg (27.0-33.0); MEAN CORPUSCULAR HGB CONC 33.3 g/dl (32.0-36.5); MEAN CORPUSCULAR VOLUME 92.6 fl (80.0-96.0); PLATELET COUNT, AUTOMATED 358 10^3/uL (150-450); RED BLOOD COUNT 4.45 10^6/uL (4.00-5.40); WHITE BLOOD COUNT 8.4 10^3/uL (4.0-10.0)
[2019-08-13] MEDS ORDERED: PERC5TAB12 PO (14:02)
[2019-08-13] MEDS ORDERED: IBUP1TAB7 PO (14:04)
[2019-08-13] MEDS ORDERED: BUPIVACAINE HCL 0.25% 30ML VIAL As Ordered ONE (14:05)
--- NOTE | 2019-08-13 14:09 | ROOPDOC ---
[facility] Report Of Operation Report of Operation DATE OF PROCEDURE: 08/13/19 PREPROCEDURE DIAGNOSES: Satisfied parity with undesired fertility. POSTPROCEDURE DIAGNOSES: Satisfied parity with undesired fertility. PROCEDURE: Diagnostic operative laparoscopy with bilateral salpingectomy for purpose of tubal ligation.. SURGEON: Arely Culp MD FACILITIES OFFICER: None ANESTHESIA: General endotracheal anesthesia. INTRAVENOUS FLUIDS: 900 mL of lactated Ringer's solution. ESTIMATED BLOOD LOSS: Approximately 5 mL. URINE OUTPUT: 100 mL. PREOPERATIVE ANTIBIOTICS: None. SPECIMENS: Bilateral fallopian tubes. COMPLICATIONS: None OPERATIVE FINDINGS: Patient with normal appearing uterus, bilateral adnexa. Appendix was visualized, appeared to be normal. DESCRIPTION OF PROCEDURE: After informed consent was obtained and written consent was reviewed, the patient was brought to the operating room where she was placed under general endotracheal anesthesia. She was then placed in the lithotomy position. She was prepped and draped in a normal sterile fashion. A time-out in the operating room was then performed identifying the patient, procedure to be performed, as well as drug allergies. Dubach speculum was then placed revealing the cervix. The anterior lip of the cervix was grasped with a single-tooth tenaculum. A Hulka tenaculum was then advanced through the cervical os for a means to manipulate the uterus. Single-tooth tenaculum as well as the speculum was removed. Valdovinos catheter was then placed and set to gravity. Gloves were changed. Attention was turned to the patient's abdomen where 0.25% Marcaine was infused in umbilical region. This area was incised and a 5 mm trocar and sleeve was advanced through this incision. The laparoscope was then replaced revealing intraabdominal placement. Pneumoperitoneum was then obtained with CO2 gas. The abdomen was then surveyed with the above-noted findings. Two additional port sites were placed. One port site was placed 2 cm above the pubis symphysis in the midline. This area was infused with 0.25% Marcaine. An incision was made in this area and 8 mm trocar and sleeve was advanced through this incision under direct visualization. A second accessory port was placed left side of the patient's abdomen. This area was infused with 0.25% Marcaine. A 5 mm trocar and sleeve was advanced through this incision under direct visualization. Next, the right fallopian tube was then placed on traction. Using Harmonic Al scalpel device, the mesosalpinx was dissected underneath the fallopian tube and was transected at the level of the uterus. Specimen was then brought out the port site. In a similar fashion, left fallopian tube was dissected along the left mesosalpinx underneath the fallopian tube and transected at the level of the uterus. The specimen was removed. Surgical sites were inspected and noted to be hemostatic. Pneumoperitoneum was then released and port sites were then closed with #4-0 Monocryl and was dressed with Dermabond. Valdovinos catheter as well as a Hulka tenaculum was removed. The patient was then taken out of the lithotomy position, was awakened from general anesthesia and taken to recovery in stable condition. Counts were correct. . ARELY CULP MD. Aug 13, 2019 14:09
[2019-08-13] MEDS ORDERED: KETOROLAC 60 MG/2 ML VIAL As Ordered ONE (14:31)
[2019-08-13] MEDS ORDERED: fentaNYL 100 MCG/2 ML INJECTION (J3010) As Ordered ONE ×2 (14:31→15:19)
[2019-08-13] MEDS ORDERED: HYDROmorphone HCL 2 MG/ML 1ML VIAL (J1170) As Ordered ONE (14:31)
[2019-08-13] MEDS ORDERED: ROCURONIUM BROMIDE 50 MG/5 ML VIAL As Ordered ONE (14:31)
[2019-08-13] MEDS ORDERED: propofoL 200 MG/20 ML VIAL As Ordered ONE (14:31)
[2019-08-13] MEDS ORDERED: SUGAMMADEX SODIUM 500 MG/5 ML VIAL (BRIDION) As Ordered ONE (14:31)
[2019-08-13] MEDS ORDERED: LIDOCAINE 2% 100MG/5ML SDV (FOR ANES.) As Ordered ONE (14:31)
[2019-08-13] MEDS ORDERED: MIDAZOLAM INJ 2MG/2ML VIAL (J2250 PER 1MG) As Ordered ONE (14:31)
[2019-08-13] MEDS ORDERED: PHENYLephrine HCL 500 MCG/5 ML (100MCG/ML) SYRINGE (J2370) As Ordered ONE (14:33)
[2019-08-13] MEDS ORDERED: GLYCOPYRROLATE INJ 0.2 MG/ML 2 ML VIAL As Ordered ONE (14:58)
[2019-08-13] MEDS ORDERED: oxyCODONE 5MG TAB As Ordered ONE (15:19)
[2019-08-13] MEDS ORDERED: HYDROMORPHONE HCL 0.5 MG/ 0.5 ML SYRINGE (J1170 PER 1) IV PRN (15:30)
[2019-08-13] MEDS ORDERED: PERCOCET 5MG/325MG TAB PO PRN (15:30)
[2019-08-13] MEDS ORDERED: ONDANSETRON 4MG/2ML VIAL IV PRN (15:30)
[2019-08-13] MEDS ORDERED: fentaNYL 100 MCG/2 ML INJECTION (J3010) IV PRN (15:30)
[2019-08-13] MEDS ORDERED: LR 1,000 ML IV SCH (15:30)
[2019-08-13] MEDS ORDERED: oxyCODONE 5MG TAB PO PRN (15:30)
[2019-08-13 16:15] VITALS: BP 118/73
[2019-08-13] MEDS ORDERED: KETOROLAC 30 MG/ML 1ML VIAL IV SCH (20:00)
== END 2019-08-13 17:03 | disposition home or self-care (01) ==
LOC: M SDC 12:42
PROVIDERS: ATTEND Obstetrics & Gynecology
DX: Z30.2 Encounter for sterilization (principal); E03.9 Hypothyroidism, unspecified; J45.909 Unspecified asthma, uncomplicated; G47.30 Sleep apnea, unspecified; F41.9 Anxiety disorder, unspecified; F32.9 Major depressive disorder, single episode, unspecified; Z88.2 Allergy status to sulfonamides; G43.909 Migraine, unspecified, not intractable, without status migrainosus; Z79.899 Other long term (current) drug therapy; Z85.850 Personal history of malignant neoplasm of thyroid
CPT/HCPCS: 36415; 58661; 81025; 85027; 86850; 86900; 86901; 88302; J1170; J1885; J2250; J2370; J3010

== ENCOUNTER → 2019-12-01 | Outpatient (CLI) | payer OTHER ==
[~2019-12-01] MED LIST changes: +IBUP1TAB7 PO; -LR 1,000 ML IV ONE
--- NOTE | 2019-12-08 13:47 | SLEEPHOME ---
DATE: 12/01/2019 ORDERED BY: Dr. Gloria Sneed Diagnostic home sleep testing was performed due to concern for the obstructive sleep apnea syndrome in this patient with a history of excessive somnolence, morning, headaches, and nonrestorative sleep. For testing, a nocturnal T3 respiratory monitoring device was used. Continuous record was made of pulse, oxygen saturation, air flow, chest and abdominal strain, and body position. There was 9 hours nondistended 59 minutes of data reviewed. There was 9 hours and 11 minutes marked as time in bed. During the interval marked time in bed, there were 55 respiratory events identified of 10 seconds in duration or greater for a respiratory event index of 6. The events were primarily obstructive. Baseline pulse rate 60 beats per minute. Pulse rate ranged 45-101. Baseline saturation 94%. Saturations fell to 84%. Testing was performed in the both the supine and nonsupine positions. IMPRESSION: Abnormal home sleep testing with repetitive respiratory events and oxygen desaturations to 84% with a respiratory event index of 6 is consistent with the obstructive sleep apnea syndrome (G47.33). RECOMMENDATION: The patient should be encouraged to undergo formal sleep evaluation. MTDD
== END ==
LOC: M SLEEP HO 11:24
PROVIDERS: ATTEND Nurse Practitioner Family
DX: G47.33 Obstructive sleep apnea (adult) (pediatric) (principal)

== ENCOUNTER → 2020-03-07 | Outpatient (REF) | payer SELFPAY | LOC: EDSTATUS 10:30 → M LABSMTC 10:38 | PROVIDERS: ATTEND Pediatrics | DX: Z20.828 Contact with and (suspected) exposure to other viral communicable diseases (principal) ==

== ENCOUNTER → 2020-03-09 | Outpatient (REF) | payer OTHER | LOC: M LAB REF 09:12 | DX: C73 Malignant neoplasm of thyroid gland (principal); E89.0 Postprocedural hypothyroidism ==

== ENCOUNTER 2020-07-02 21:13 | Emergency (ER) | payer OTHER ==
[~2020-07-02] VITALS: Ht 157.5 cm; Wt 89.5 kg
[~2020-07-02 21:13] MED LIST changes: +BUPR150T12; +BUPR150T12 PO; -BUPR150T3; -BUPR150T3 PO
[2020-07-02] MEDS ORDERED: LAMI25CH PO (21:22)
[2020-07-02] MEDS ORDERED: VIIB20TA PO (21:22)
[2020-07-02] MEDS ORDERED: methylPREDNISolone 125MG 2ML VIAL IV ONE (22:10)
[2020-07-02] MEDS: COMBIVENT RESPIMAT 100-20MCG INHALER 4GM INH SCH ×3 (22:13→22:55)
[2020-07-02 22:36] LABS: BASO # 0.1 10^3/uL (0.0-0.2); BASO % 0.7 % (0.0-1.0); EOS # 1.6 10^3/uL (0.0-0.5); HEMOGLOBIN 13.7 g/dl (12.0-15.5); LYMPH # 2.1 10^3/uL (1.5-5.0); LYMPH % 19.9 % (24.0-44.0); MEAN CORPUSCULAR HGB CONC 34.3 g/dl (32.0-36.5); MEAN CORPUSCULAR VOLUME 90.5 fl (80.0-96.0); MONO # 0.6 10^3/uL (0.0-0.8); NEUTROPHILS # 6.2 10^3/uL (1.5-8.5); PLATELET COUNT, AUTOMATED 303 10^3/uL (150-450); RED BLOOD COUNT 4.42 10^6/uL (4.00-5.40); WHITE BLOOD COUNT 10.7 10^3/uL (4.0-10.0)
[2020-07-02 23:12] LABS: MONO REFLEX EBV COMP NEGATIVE (NEGATIVE); RSV AMPLIFICATION NEGATIVE (NEGATIVE)
--- NOTE | 2020-07-02 23:38 | REPVR ---
PROCEDURE INFORMATION: Exam: XR Chest Exam date and time: 07/02/2020 10:59 PM Age: 34 years old Clinical indication: Cough and shortness of breath and wheezing; Additional info: Wheezing, cough, SOB TECHNIQUE: Imaging protocol: XR of the chest. Views: 1 view. COMPARISON: CT ANGIO CHEST 05/04/2017 3:00 PM FINDINGS: Lungs: The lungs appear clear and there is no evidence of localized infiltrate. Pleural spaces: There is no evidence of pneumothorax or pleural effusion. Heart/Mediastinum: The heart is normal in size. Bones/joints: Unremarkable. IMPRESSION: Clear appearing lungs Electronically signed by: Max Lentz On 07/02/2020 23:37:38 PM
[2020-07-03] MEDS ORDERED: AMOXICILLIN 500 MG CAP PO ONE (00:15)
[2020-07-03] MEDS ORDERED: AMOX500C PO (00:15)
[2020-07-03] MEDS ORDERED: PRED20TA PO (00:15)
[2020-07-03 00:33] VITALS: BP 142/82
[2020-07-04 14:09] LABS: EBV VIRAL CAPSID AG IgG >600.0 U/mL (0.0-17.9); EBV VIRAL CAPSID AG IgM <36.0 U/mL (0.0-35.9)
== END 2020-07-03 00:36 | disposition home or self-care (01) ==
LOC: M ED 21:13
DX: J45.901 Unspecified asthma with (acute) exacerbation (principal); J02.9 Acute pharyngitis, unspecified; E03.9 Hypothyroidism, unspecified; Z98.84 Bariatric surgery status; Z79.899 Other long term (current) drug therapy; Z79.890 Hormone replacement therapy; Z88.1 Allergy status to other antibiotic agents; Z88.2 Allergy status to sulfonamides; F17.210 Nicotine dependence, cigarettes, uncomplicated
CPT/HCPCS: 71045; 85025; 86308; 86664; 86665; 87631; 87880; 94640; 96374; 99284; J2930

== ENCOUNTER → 2020-12-21 | Outpatient (REF) | payer OTHER ==
[~2020-12-21] MED LIST changes: +AMOX500C PO; +LAMI25CH PO; +VIIB20TA PO
[2020-12-21 14:05] LABS: APPEARANCE, URINE CLOUDY (CLEAR); BACTERIA, URINE AUTO NEGATIVE (NEGATIVE); BILIRUBIN, URINE AUTO NEGATIVE (NEGATIVE); BLOOD, URINE BLOOD NEGATIVE (NEGATIVE); COLOR, URINE YELLOW (YELLOW); GLUCOSE, URINE (UA) AUTO NEGATIVE (NEGATIVE); KETONE, URINE AUTO NEGATIVE (NEGATIVE); LEUKOCYTE ESTERASE, URINE AUTO NEGATIVE (NEGATIVE); MUCUS, URINE SMALL (NEGATIVE); NITRITE, URINE AUTO NEGATIVE (NEGATIVE); PROTEIN, URINE AUTO 1+ mg/dL (NEGATIVE); RBC, URINE AUTO 1 /HPF (0-3); SPECIFIC GRAVITY URINE AUTO 1.027 (1.002-1.035); SQUAMOUS EPITHELIAL CELL UR AU 3 /HPF (0-6); UROBILINOGEN, URINE AUTO 0.2 mg/dL (0.0-2.0); WBC, URINE AUTO 0 /HPF (0-3)
== END ==
LOC: M LAB REF 12:37
PROVIDERS: ATTEND Physician Assistant
DX: R30.0 Dysuria (principal)

== ENCOUNTER → 2021-01-22 | Outpatient (REF) ==
[~2021-01-22] MED LIST changes: +AMPH1CAP16; +LAMO100T3; +VIIB40TA
== END ==
LOC: M LABSMTC 10:48
PROVIDERS: ATTEND Pediatrics
DX: Z11.52 Encounter for screening for COVID-19 (principal); Z20.822 Contact with and (suspected) exposure to COVID-19

== ENCOUNTER 2021-01-23 16:20 | Emergency (ER) | payer OTHER ==
[~2021-01-23] VITALS: Ht 157.5 cm; Wt 77.7 kg
[~2021-01-23 16:20] MED LIST changes: -AMPH1CAP16; -LAMO100T3; -VIIB40TA
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
--- OUTSIDE RECORDS SUMMARY | 2021-01-23 16:27 | CCD | Continuity of Care Document ---
Author Author Sophia HENDERSON DO Organization Unknown Address [address], [address] [place] [address] Phone [phone] Care Team Providers Care Psychotherapist Social Worker Name Role Phone Lakia Moore M.D. AUTM [phone] Wolfgang Brito M.D. AUTM [phone] Brenden Henderson DO AUTM [phone] Problems Active Problems Provider Date Anxiety Onset: Asthma Onset: Depressive disorder Onset: Electrocardiogram abnormal Onset: Ex-smoker Onset: Gout Onset: Malignant tumor of thyroid gland Onset: Morbid obesity Onset: Obstructive sleep apnea syndrome Onset: Right upper quadrant pain Onset: 0 000 Vitamin D deficiency Onset: Iron deficiency Pam Diaz NP Onset: 2019 Note: pt needs to start Slo-Fe 1 tab wilder ly Social History Type Date Description Comments Sex Unknown ETOH Use Occasionally consumes alcohol Tobacco Use Start: Unknown End: Unknown Patient is a former smoker Allergies, Adverse Reactions, Alerts Active Allergies Criticality Reaction | Severity Comments Date Sulfa Unable to assess criticality 09/23/2019 Medications Active Medications SIG Qnty Indications Ordering Provide r Date Nystatin 176965Rekr/GM Powder apply by topical route 2 times every day to the affected area(s) 60gm Brenden Henderson DO 10/02/2020 Childrens Chewable Multivitamin With Iro n Chewtabs 2 by mouth every day 60units Pam Dean on, SOLE ASSESSOR 04/18/2020 Calcium 500 +D [id number] Tabl ets 2 by mouth daily 60tabs Pam Diaz NP 04/18 [facility] Vitamin B12 1000mcg Tablets 1 tab SL every day 30tabs Pam Diaz NP 04/18 Aripiprazole 2mg Tablets 1 by mouth every day Unknown Bupropion Hydrochloride ER (XL) 150mg Tablets ER 24HR 1 by mouth every day Unknown Buspirone HCL 10mg Tablets 1 by mouth three times a day needed Unknown Levothyroxine Sodium 200mcg Tablet s 1 by mouth every day Unknown Sertraline HCL 50mg Tablets 1 by mouth every day Unknown Topiramate 50mg Tablets 1 tab by mouth AT bedtime Unknown Methylprednisolone 4mg Tablets take 6 tabs day 1, take 5 tabs day 2, take 4 tabs day 3, take 3 tabs on day 4, take 2 tabs day 5, take 1 tab on day 6 Unknown Omeprazole 40mg Capsules DR 1 by mouth every day Unknown Immunizations Description No Information Available Vital Signs Date Vital Result Comment 08/01/2020 2:17pm Weight 184.00 lb 04/18/2020 3:57pm Weight 190.38 lb Results Description No Information Available Procedures Date Code Description Status 10/31/2020 26851 Office/Outpatient Established Lo w MDM 20-29 Min Completed 08/01/2020 99494 Office/Outpatient Established Lo w MDM 20-29 Min Completed Medical Devices Description No Information Available Encounters Type Date Location Provider Dx Diagnosis Office Visit 10/31/2020 9:30a [facility] Brenden Henderson DO E66.3 Overweight G47.33 Obstructive sleep apnea (jennifer lt) (pediatric) E03.9 Hypothyroidism, unspecified Z98.84 Bariatric surgery status Z68.27 Body mass index [BMI] 27.0-2 7.9, adult Office Visit 08/01/2020 2:00p [facility] Pam Cai NP Z98.84 Bariatric surgery status Z98.51 Tubal ligation status J45.909 Unspecified asthma, uncompli cated G47.33 Obstructive sleep apnea (jennifer lt) (pediatric) E66.9 Obesity, unspecified Z68.41 Body mass index [BMI] 40.0-4 4.9, adult Assessments Date Code Description Provider 10/31/2020 E66.3 Overweight Brenden Henderson, 10/31/2020 G47.33 Obstructive sleep apnea (adult) (pediatric) Brenden Henderson, 10/31/2020 E03.9 Hypothyroidism, unspecified Alberto Henderson, DO 10/31/2020 Z98.84 Bariatric surgery status Brenden Henderson, 10/31/2020 Z68.27 Body mass index [BMI] 27.0-27.9, adult Brenden Henderson DO 08/01/2020 Z98.84 Bariatric surgery status Jared Diaz, SINDHU 08/01/2020 Z98.51 Tubal ligation status Pam Diaz, SINDHU 08/01/2020 J45.909 Unspecified asthma, uncomplicate d Pam Diaz, SINDHU 08/01/2020 G47.33 Obstructive sleep apnea (adult) (pediatric) Pam Hall, SINDHU 08/01/2020 E66.9 Obesity, unspecified Pam Ralph NP 08/01/2020 Z68.41 Body mass index [BMI]40.0-44.9, adult Pam Diaz NP Plan of Treatment Future Appointment(s):* 02/16/2021 9:30 am - Brenden Henderson DO at [facility] Services 10/31/2020 - Brenden Henderson DO* E66.3 Overweight * G47.33 Obstructive sleep apnea (adult) (pediatric) * E03.9 Hypothyroidism, unspecified * Z98.84 Bariatric surgery status* Comments:* This appointment was completed via telemedicine. Two factor authentication was confirmed with name and . Verbal consent to participate in telemedicine visit was obtained. The patient is currently in [facility]. Patient was informed that visit was not recorded, taped or kept on file. The patient was informed that there was a scribe present. Patient was informed that they have the right to the same confidentiality with telehealth under the same laws that protect confiden tiality of their medical record information for in-person treatment. Any information disclosed by them during the course of their treatment is confidential. Patient was informed that there is no one else that can overhear the conversation in the office. Patient states that the following people were with them to overhear their conversation:Total time spent on telemedicine was: 5 minutesOverall think she is doing well. She continues to lose weight. I think she is making good food choices for the most part. I will see her in 3 months. * Z68.27 Body mass index [BMI] 27.0-27.9, adult Functional Status Description No Information Available Mental Status Description No Information Available Referrals Description No Information Available"
--- OUTSIDE RECORDS SUMMARY | 2021-01-23 16:27 | CCD | Continuity of Care Document ---
Author Author Sophia HENDERSON DO Organization Unknown Address [address], [address] [place] [address] Phone [phone] Care Team Providers Care Manager In Training Name Role Phone Lakia Moore M.D. AUTM [phone] Wolfgang Brito M.D. AUTM [phone] Brenden Henderson DO AUTM [phone] Problems Active Problems Provider Date Anxiety Onset: [...] Qnty Indications Ordering Provide r Date Nystatin 595499Qowa/GM Powder apply by topical route 2 times every day to the affected area(s) 60gm Brenden Henderson DO 10/02/2020 Childrens Chewable Multivitamin With Iro n Chewtabs 2 by mouth every day 60units Pam Dean on, FINAL OPERATIONS TECHNICIAN 04/18/2020 Calcium 500 +D [id number] Tabl ets 2 by mouth daily 60tabs [...] Available Procedures Date Code Description Status 10/31/2020 04491 Office/Outpatient Established SF MDM 10-19 Min Completed 08/01/2020 84171 Office/Outpatient Established Lo w MDM 20-29 Min Completed Medical Devices Description No Information Available Encounters Type Date Location Provider Dx Diagnosis Office Visit 10/31/2020 9:30a [facility] Brenden Henderson DO E66.9 Obesity, unspecified G47.33 Obstructive sleep apnea (jennifer lt) (pediatric) E03.9 Hypothyroidism, unspecified Z98.84 Bariatric surgery status Office Visit 08/01/2020 2:00p [facility] Pam Cai NP Z98.84 Bariatric surgery status Z98.51 Tubal ligation status J45.909 Unspecified asthma, uncompli cated G47.33 Obstructive sleep apnea (jennifer lt) (pediatric) E66.9 Obesity, unspecified Z68.41 Body mass index [BMI] 40.0-4 4.9, adult Assessments Date Code Description Provider 10/31/2020 E66.9 Obesity, unspecified Brenden allen, DO 10/31/2020 G47.33 Obstructive sleep apnea (adult) (pediatric) Brenden Henderson DO 10/31/2020 E03.9 Hypothyroidism, unspecified Alberto Henderson, 10/31/2020 Z98.84 Bariatric surgery status Brenden Henderson, 08/01/2020 Z98.84 Bariatric surgery status Jared Diaz, SINDHU 08/01/2020 Z98.51 Tubal ligation status Pam Diaz, SINDHU 08/01/2020 J45.909 Unspecified asthma, uncomplicate d Pam Diaz, SINDHU 08/01/2020 G47.33 Obstructive sleep apnea (adult) (pediatric) Pam Hall NP 08/01/2020 E66.9 Obesity, unspecified Pam Ralph NP 08/01/2020 Z68.41 Body mass index [BMI]40.0-44.9, adult Pam Diaz NP Plan of Treatment Future Appointment(s):* 02/16/2021 9:30 am - Brenden Henderson DO at [facility] Services 10/31/2020 - Brenden Henderson DO* E66.9 Obesity, unspecified * G47.33 Obstructive sleep apnea (adult) (pediatric) * E03.9 Hypothyroidism, unspecified * Z98.84 Bariatric surgery status* Comments:* This appointment was completed via telemedicine. Two factor authentication was confirmed with name and . Verbal consent to participate in telemedicine visit was obtained. The patient is currently in [facility]. Patient was informed that visit was not [...] I will see her in 3 months. Functional Status Description No Information Available Mental Status Description No Information Available Referrals Description No Information Available"
--- OUTSIDE RECORDS SUMMARY | 2021-01-23 16:27 | CCD ---
Author Organization Unknown Address [address] [place] [id number] Phone [phone] Care Team Providers Care Anger Control Counselor Name Role Phone Hanane Tpaia Unavailable Unavailable Allergies Code Code System Name Reaction Severity Status Onset Sulfa (Sulfonamide Antibiotics) Hives Moderate to Severe Active Notes: Environmental Allergies. Some allergies listed in Documents: #[id number], #[id number] could not be added to this patient's chart. Please review these documents and add these allergies to the patient's chart manually as needed. Medications Name Status Start Date Stop Date Adderall 20 mg tablet Take 1 tablet every day by oral route in the morning. Active Not available albuterol sulfate HFA 90 mcg/actuation a erosol inhaler INHALE 1 TO 2 PUFFS BY MOUTH EVERY 4 HOURS NEEDED FOR WHEEZING Active Not available amoxicillin 500 mg capsule [...] 01/19/2020 buspirone 10 mg tablet Completed 0 Euthyrox 200 mcg tablet TAKE 1 TABLET BY MOUTH ONCE DAILY FOR 6 DAYS PER WEEK AND 1.5 TABLETS 1 DAY PER WEEK Active Not available hydroxyzine HCl 25 mg tablet Take 1 tablet twice a day by oral route. Active Not available ibuprofen 800 mg tablet TAKE 1 TABLET BY MOUTH EVERY 8 HOURS NEEDED FOR PAIN Completed 01/19/2020 Incruse Ellipta 62.5 mcg/actuation powde r for inhalation INHALE 1 PUFF BY MOUTH ONCE DAILY Active Not a vailable Lamictal 25 mg tablet Take 2 tablets every day by oral route. Active Not available Nystop 100,000 unit/gram topical powder Active Not [...] TABLETS BY MOUTH ONCE DAILY Completed 11/09 sertraline 50 mg tablet Completed 01/19/20 topiramate 50 mg tablet Completed 12/02/19 Viibryd 10 mg tablet TAKE 1 TABLET BY MOUTH ONCE DAILY IN THE MORNING Completed 04/14/2020 Viibryd 20 mg tablet TAKE 1 TABLET BY MOUTH ONCE DAILY IN THE MORNING Active Not available Notes: Some medications listed in Docume nts: #[id number], #[id number] could not be added to this patient's [...] 10/12/2020 Attention Deficit Hyperactivity Disorder Active 021 Procedures Date Name Performed by 01/24/2020 Laparoscopic Sleeve Gastrectomy Informat ion not available 08/13/2019 Bilateral Tubal Ligation Information not available 03/10/2011 Thyroidectomy Information not avai lable Tonsillectomy and Adenoidectomy Informat ion not available Results Lab Results Date Name Specimen Result Interpretation Description Value Range Status Address 07/02/2020 CBC W/ Auto Diff High White Blood Count 10.7 10 4.0-10.0 10 Final [facility]: [address] [facility] Normal Red Blood Count 4.42 10 4.00-5.40 10 [facility]: [address] [facility] Normal Hemoglobin 13.7 g/dL 12.0-15.5 g/dL Final [facility]: [address] [place] [address] Normal Hematocrit 40.0 % 36.0-47.0 % [facility]: [address] [place] [address] Normal Mean Corpuscular Volume 90.5 fL 80.0 -96.0 fL Final [facility]: [address] [place] [address] Normal Mean Corpuscular Hemoglobin 31.0 pg 27.0-33.0 pg [facility]: [address] [place] [address] Normal Mean Corpuscular HGB Conc 34.3 g/dL 32.0-36.5 g/dL [facility]: [address] [place] [address] Normal Red Cell Distribution Width 12.1 % 1 1.5-14.5 % [facility]: [address] [place] [address] Normal Platelet Count, Automated 303 10 150 -450 10 [facility]: 0 [facility] Normal Neutrophils % 58.0 % 36.0-66.0 % [facility]: [address] [place] [address] Low Lymph % 19.9 % 24.0-44.0 % [facility]: [address] [place] [address] Normal Rolette % 6.0 % 2.0-8.0 % Final [facility]: [address] [place] [address] High Eos % 15.0 % 0.0-3.0 % [facility]: [address] [place] [address] Normal Baso % 0.7 % 0.0-1.0 % [facility]: [address] [place] [address] Normal Immature Granulocyte % 0.4 % 0-3.0 % [facility]: [address] [place] [address] Normal Nucleated Red Blood Cell % 0.0 % 0- 0 % [facility]: [address] [place] [address] Normal Neutrophils # 6.2 10 1.5-8.5 10 [facility]: [address] [facility] Normal Lymph # 2.1 10 1.5-5.0 10 [facility]: [address] [facility] Normal Rolette # 0.6 10 0.0-0.8 10 [facility]: [address] [facility] High Eos # 1.6 10 0.0-0.5 10 [facility]: [address] [facility] Normal Baso # 0.1 10 0.0-0.2 10 [facility]: [address] [facility] 07/02/2020 Influenza A/B RSV Covid Amp Normal Influenza a Amplification negative negative [facility]: [address] [facility] Normal Influenza B Amplification negative n egative [facility]: [address] [facility] Normal RSV Amplification negative negative [facility]: [address] [facility] Normal Sars Covid-19 Amplification negative negative [facility]: [address] [facility] 07/02/2020 Rolette Reflex Ebv Comprehensive Normal [place] Reflex Ebv Comp negative negative [facility] nter: [address] [facility] 07/02/2020 Ebv Ab Comprehensive Normal Ebv Viral Capsi d Ag IgM <36.0 U/mL 0.0-35.9 U/mL [facility]: [address] [facility] High Ebv Viral Capsid Ag IgG >600.0 U/mL 0.0-17.9 U/mL [facility]: [address] [facility] High Ebv Ab to Nuclear Antigen 433.0 U/mL 0.0-17.9 U/mL [facility]: [address] [facility] Normal Ebv Interpretation . Damian [facility]: [address] [facility] Past Encounters 12/01/2020 Mixed Anxiety and Depressive Disorder; Attention Deficit Hyperactivity Disorder, Predominantly Inattentive Type Brittaney Artis, NPP: [address] [place] [address], Ph. 10/12/2020 Allergic Rhinitis; Asthma; Bipolar Disorder Hyacinth Ham PA-C: [address] [place] [address], Ph. 04/14/2020 Adult Health Examination; Hypothyroidism; Mixed Anxiety and Depressive Disorder; Obstructive Sleep Apnea Syndrome; Moderate Persistent Asthma Hyacinth Ham PA-C: [address] [place] [address], Ph. 01/19/2020 Pre-surgery Evaluation; Obesity; Moderate Persistent Asthma; Hypothyroidism; Obstructive Sleep Apnea Syndrome; Mixed Anxiety and Depressive Disorder Hyacinth Ham PA-C: [address] [place] [address], Ph. Social History Tobacco Smoking Status Former Smoker (1/4 pack per day) Note s: Pt states used to smoke only 3-4 cigs/day. Vaccine List Vaccine Type COVID-19, mRNA, LNP-S, PF, 100 mcg/0.5 m L dose 05/19/2020 influenza, injectable, quadrivalent 12/09/2019 pneumococcal polysaccharide PPV23 02/03/2018 Plan of Care Reminders Provider Appointments None recorded. Lab None recorded. Referral None recorded. Procedures None recorded. Surgeries None recorded. Imaging None recorded. Vitals 12/01/2020 01:00PM TELEPSYCH 60 Height Weight BMI 62 in 181 lbs 16 oz 33.3 kg/m2 10/12/2020 10:20AM ESTABLISHED [id number] Height Weight BMI Blood Pressure 62 in [...]
--- OUTSIDE RECORDS SUMMARY | 2021-01-23 16:29 | CCD ---
Author Author [facility] Organization [facility] Address Unknown Phone Unavailable Support Name Relationship Address Phone ELISABETH ARCOS Next Of Kin [id number] [place] [address] SMC* Next Of Kin [address] [place] [address] YANIRA ARCOSIAN Next Of Kin [address] [place] [address] Unavailable Debbie Lantigua Next Of Kin Unknown Unavailable [facility] Next Of Kin [address] [place] [address] Hanane Mosqudea Next Of Kin [address] [place] [address] DEBBIE PARR Next Of Kin Unknown Unavailable [facility] Next Of Kin [id number] [place] [address] [place] [address] SSV* Next Of Kin [address] [place] [address] MARCO BOUCHER Next Of Kin [address] [place] [address] UNK Next Of Kin Unknown Unavailable [place] [address] RODDY MERCADO Next Of Kin [address] [place] [address] UE Next Of Kin Unknown Unavailable DEBBIE BOUCHER Next Of Kin [address] [place] [address] HOME HEALTH AIDE Next Of Kin [address] [place] [address] Unavailable QUETA MERCADO Next Of Kin [id number] [place] [address] [place] [address] UNKNOWN Next Of Kin Unknown Unavailable Debbie Boucher [address] [place] [address] [phone] Care Team Providers Care Translator And Interpreter Name Role Phone SANTIAGO, M BRENDEN DO Unavailable Unavailable SANTIAGO, M BRENDEN DO Unavailable Unavailable SANTIAGO, M BRENDEN DO Unavailable Unavailable SANTIAGO, M BRENDEN DO Unavailable Unavailable SANTIAGO, M BRENDEN DO Unavailable Unavailable SANTIAGO, M BRENDEN DO Unavailable Unavailable SANTIAGO, M BRENDEN DO Unavailable Unavailable SANTIAGO, M BRENDEN DO Unavailable Unavailable SANTIAGO, M BRENDEN DO Unavailable Unavailable SANTIAGO, M BRENDEN DO Unavailable Unavailable SANTIAGO, M BRENDEN DO Unavailable Unavailable SANTIAGO, M BRENDEN DO Unavailable Unavailable SANTIAGO, M BRENDEN DO Unavailable Unavailable SANTIAGO, M BRENDEN DO Unavailable Unavailable SANTIAGO, M BRENDEN DO Unavailable Unavailable SANTIAGO, M BRENDEN DO Unavailable Unavailable SANTIAGO, M BRENDEN DO Unavailable Unavailable SANTIAGO, M BRENDEN DO Unavailable Unavailable SANTIAGO, M BRENDEN DO Unavailable Unavailable SANTIAGO, M BRENDEN DO Unavailable Unavailable SANTIAGO, M BRENDEN DO Unavailable Unavailable SANTIAGO, M BRENDEN DO Unavailable Unavailable SANTIAGO, M BRENDEN DO Unavailable Unavailable SANTIAGO, M BRENDEN DO Unavailable Unavailable SANTIAGO, M BRENDEN DO Unavailable Unavailable SANTIAGO, M BRENDEN DO Unavailable Unavailable SANTIAGO, M BRENDEN DO Unavailable Unavailable SANTIAGO, M BRENDEN DO Unavailable Unavailable SANTIAGO, M BRENDEN DO Unavailable Unavailable SANTIAGO, M BRENDEN DO Unavailable Unavailable SANTIAGO, M BRENDEN DO Unavailable Unavailable SANTIAGO, M BRENDEN DO Unavailable Unavailable SANTIAGO, M BRENDEN DO Unavailable Unavailable SANTIAGO, M BRENDEN DO Unavailable Unavailable SANTIAGO, M BRENDEN DO Unavailable Unavailable SANTIAGO, M BRENDEN DO Unavailable Unavailable SANTIAGO, M BRENDEN DO Unavailable Unavailable SANTIAGO, M BRENDEN DO Unavailable Unavailable SANTIAGO, M BRENDEN DO Unavailable Unavailable SANTIAGO, M BRNEDEN DO Unavailable Unavailable SANTIAGO, M BRENDEN DO Unavailable Unavailable SANTIAGO, M BRENDEN DO Unavailable Unavailable SANTIAGO, M BRENDEN DO Unavailable Unavailable SANTIAGO, M BRENDEN DO Unavailable Unavailable SANTIAGO, M BRENDEN DO Unavailable Unavailable SANTIAGO, M BRENDEN DO Unavailable Unavailable SANTIAGO, M BRENDEN DO Unavailable Unavailable SANTIAGO, M BRENDEN DO Unavailable Unavailable SANTIAGO, M BRENDEN DO Unavailable Unavailable SANTIAGO, M BRENDEN DO Unavailable Unavailable SANTIAGO, M BRENDEN DO Unavailable Unavailable SANTIAGO, M BRENDEN DO Unavailable Unavailable SANTIAGO, M BRENDEN DO Unavailable Unavailable SANTIAGO, M BRENDEN DO Unavailable Unavailable SANTIAGO, M BRENDEN DO Unavailable Unavailable SANTIAGO, M BRENDEN DO Unavailable Unavailable SANTIAGO, M BRENDEN DO Unavailable Unavailable SANTIAGO, M BRENDEN DO Unavailable Unavailable SANTIAGO, M BRENDEN DO Unavailable Unavailable SANTIAGO, M BRENDEN DO Unavailable Unavailable SANTIAGO, M BRENDEN DO Unavailable Unavailable SANTIAGO, M BRENDEN DO Unavailable Unavailable SANTIAGO, M BRENDEN DO Unavailable Unavailable SANTIAGO, M BRENDEN DO Unavailable Unavailable SANTIAGO, M BRENDEN DO Unavailable Unavailable SANTIAGO, M BRENDEN DO Unavailable Unavailable SANTIAGO, M BRENDEN DO Unavailable Unavailable SANTIAGO, M BRENDEN DO Unavailable Unavailable SANTIAGO, M BRENDEN DO Unavailable Unavailable Hanane Tapia PRINT INSPECTOR PRINT INSPECTOR Unavailable Unavailable Machelle Toribio Unavailable [phone] XU, BRITTANEY PERSONAL COMPANION Unavailable Unavailable XU, BRITTANEY PERSONAL COMPANION Unavailable Unavailable XU, BRITTANEY PERSONAL COMPANION Unavailable Unavailable XU, BRITTANEY PERSONAL COMPANION Unavailable Unavailable XU, BRITTANEY PERSONAL COMPANION Unavailable Unavailable XU, BRITTANEY PERSONAL COMPANION Unavailable Unavailable XU, BRITTANEY PERSONAL COMPANION Unavailable Unavailable Green PERSONAL COMPANION PERSONAL COMPANION, Aziza Unavailable Unavailable Green PERSONAL COMPANION PERSONAL COMPANION, Aziza Unavailable Unavailable Green PERSONAL COMPANION PERSONAL COMPANION, Aziza Unavailable Unavailable Green PERSONAL COMPANION PERSONAL COMPANION, Aziza Unavailable Unavailable Green PERSONAL COMPANION PERSONAL COMPANION, Aziza Unavailable Unavailable SANTIAGO, M BRENDEN DO Unavailable Unavailable SANTIAGO, M BRENDEN DO Unavailable Unavailable SANTIAGO, M BRENDEN DO Unavailable Unavailable SANTIAGO, M BRENDEN DO Unavailable Unavailable SANTIAGO, M BRENDEN DO Unavailable Unavailable SANTIAGO, M BRENDEN DO Unavailable Unavailable SANTIAGO, M BRENDEN DO Unavailable Unavailable SANTIAGO, M BRENDEN DO Unavailable Unavailable SANTIAGO, M BRENDEN DO Unavailable Unavailable ASNTIAGO, M BRENDEN DO Unavailable Unavailable SANTIAGO, M BRENDEN DO Unavailable Unavailable SANTIAGO, M BRENDEN DO Unavailable Unavailable SANTIAGO, M BRENDEN DO Unavailable Unavailable SANTIAGO, M BRENDEN DO Unavailable Unavailable SANTIAGO, M BRENDEN DO Unavailable Unavailable SANTIAGO, M BRENDEN DO Unavailable Unavailable SANTIAGO, M BRENDEN DO Unavailable Unavailable SANTIAGO, M BRENDEN DO Unavailable Unavailable SANTIAGO, M BRENDEN DO Unavailable Unavailable SANTIAGO, M BRENDEN DO Unavailable Unavailable SANTIAGO, M BRENDEN DO Unavailable Unavailable SANTIAGO, M BRENDEN DO Unavailable Unavailable SANTIAGO, M BRENDEN DO Unavailable Unavailable SANTIAGO, M BRENDEN DO Unavailable Unavailable SANTIAGO, M BRENDEN DO Unavailable Unavailable SANTIAGO, M BRENDEN DO Unavailable Unavailable SANTIAGO, M BRENDEN DO Unavailable Unavailable SANTIAGO, M BRENDEN DO Unavailable Unavailable SANTIAGO, M BRENDEN DO Unavailable Unavailable SANTIAGO, M BRENDEN DO Unavailable Unavailable SANTIAGO, M BRENDEN DO Unavailable Unavailable SANTIAGO, M BRENDEN DO Unavailable Unavailable SANTIAGO, M BRENDEN DO Unavailable Unavailable SANTIAGO, M BRENDEN DO Unavailable Unavailable SANTIAGO, M BRENDEN DO Unavailable Unavailable SANTIAGO, M BRENDEN DO Unavailable Unavailable SANTIAGO, M BRENDEN DO Unavailable Unavailable SANTIAGO, M BRENDEN DO Unavailable Unavailable SANTIAGO, M BRENDEN DO Unavailable Unavailable SANTIAGO, M BRENDEN DO Unavailable Unavailable SANTIAGO, M BRENDEN DO Unavailable Unavailable SANTIAGO, M BRENDEN DO Unavailable Unavailable SANTIAGO, M BRENDEN DO Unavailable Unavailable SANTIAGO, M BRENDEN DO Unavailable Unavailable SANTIAGO, M BRENDEN DO Unavailable Unavailable SANTIAGO, M BRENDEN DO Unavailable Unavailable SANTIAGO, M BRENDEN DO Unavailable Unavailable SANTIAGO, M BRENDEN DO Unavailable Unavailable SANTIAGO, M BRENDEN DO Unavailable Unavailable SANTIAGO, M BRENDEN DO Unavailable Unavailable SANTIAGO, M BRENDEN DO Unavailable Unavailable SANTIAGO, M BRENDEN DO Unavailable Unavailable SANTIAGO, M BRENDEN DO Unavailable Unavailable SANTIAGO, M BRENDEN DO Unavailable Unavailable SANTIAGO, M BRENDEN DO Unavailable Unavailable SANTIAGO, M BRENDEN DO Unavailable Unavailable SANTIAGO, M BRENDEN DO Unavailable Unavailable SANTIAGO, M BRENDEN DO Unavailable Unavailable SANTIAGO, M BRENDEN DO Unavailable Unavailable SANTIAGO, M BRENDEN DO Unavailable Unavailable SANTIAGO, M BRENDEN DO Unavailable Unavailable SANTIAGO, M BRENDEN DO Unavailable Unavailable SANTIAGO, M BRENDEN DO Unavailable Unavailable SANTIAGO, M BRENDEN DO Unavailable Unavailable SANTIAGO, M BRENDEN DO Unavailable Unavailable SANTIAGO, M BRENDEN DO Unavailable Unavailable SANTIAGO, M BRENDEN DO Unavailable Unavailable SANTIAGO, M BRENDEN DO Unavailable Unavailable SANTIAGO, M BRENDEN DO Unavailable Unavailable CHERYL, H AGATHA PERSONAL COMPANION Unavailable Unavailable CHERYL, H AGATHA PERSONAL COMPANION Unavailable Unavailable CHERYL, H AGATHA PERSONAL COMPANION Unavailable Unavailable CHERYL, H AGATHA PERSONAL COMPANION Unavailable Unavailable CHERYL, H AGATHA PERSONAL COMPANION Unavailable Unavailable CHERYL, H AGATHA PERSONAL COMPANION Unavailable Unavailable CHERYL, H AGATHA PERSONAL COMPANION Unavailable Unavailable CHERYL, H AGATHA PERSONAL COMPANION Unavailable Unavailable CHERYL, H AGATHA PERSONAL COMPANION Unavailable Unavailable NICKIE, ALICE PA Unavailable Unavailable NICKIE, ALICE PA Unavailable Unavailable NICKIE, ALICE PA Unavailable Unavailable NICKIE, ALICE PA Unavailable Unavailable NICKIE, ALICE PA Unavailable Unavailable NICKIE, ALICE PA Unavailable Unavailable NICKIE, ALICE PA Unavailable Unavailable NICKIE, ALICE PA Unavailable Unavailable NICKIE, ALICE PA Unavailable Unavailable NICKIE, ALICE PA Unavailable Unavailable NICKIE, ALICE PA Unavailable Unavailable NICKIE, ALICE PA Unavailable Unavailable NICKIE, ALICE PA Unavailable Unavailable NICKIE, ALICE PA Unavailable Unavailable NICKIE, ALICE PA Unavailable Unavailable NICKIE, ALICE PA Unavailable Unavailable NICKIE, ALICE PA Unavailable Unavailable NICKIE, ALICE PA Unavailable Unavailable NICKIE, ALICE PA Unavailable Unavailable NICKIE, ALICE PA Unavailable Unavailable NICKIE, ALICE PA Unavailable Unavailable NICKIE, ALICE PA Unavailable Unavailable NICKIE, ALICE PA Unavailable Unavailable NICKIE, ALICE PA Unavailable Unavailable NICKIE, ALICE PA Unavailable Unavailable NICKIE, ALICE PA Unavailable Unavailable NICKIE, ALICE PA Unavailable Unavailable NICKIE, ALICE PA Unavailable Unavailable NICKIE, ALICE PA Unavailable Unavailable NICKIE, ALICE PA Unavailable Unavailable NICKIE, ALICE PA Unavailable Unavailable NICKIE, ALICE PA Unavailable Unavailable NICKIE, ALICE PA Unavailable Unavailable NICKIE, ALICE PA Unavailable Unavailable NICKIE, ALICE PA Unavailable Unavailable NICKIE, ALICE PA Unavailable Unavailable NICKIE, ALICE PA Unavailable Unavailable NICKIE, ALICE PA Unavailable Unavailable SANTIAGO, M BRENDEN DO Unavailable Unavailable SANTIAGO, M BRENDEN DO Unavailable Unavailable SANTIAGO, M BRENDEN DO Unavailable Unavailable SANTIAGO, M BRENDEN DO Unavailable Unavailable SANTIAGO, M BRENDEN DO Unavailable Unavailable SANTIAGO, M BRENDEN DO Unavailable Unavailable SANTIAGO, M BRENDEN DO Unavailable Unavailable SANTIAGO, M BRENDEN DO Unavailable Unavailable SANTIAGO, M BRENDEN DO Unavailable Unavailable SANTIAGO, M BRENDEN DO Unavailable Unavailable SANTIAGO, M BRENDEN DO Unavailable Unavailable SANTIAGO, M BRENDNE DO Unavailable Unavailable SANTIAGO, M BRENDEN DO Unavailable Unavailable SANTIAGO, M BRENDEN DO Unavailable Unavailable SANTIAGO, M BRENDEN DO Unavailable Unavailable SANTIAGO, M BRENDEN DO Unavailable Unavailable SANTIAGO, M BRENDEN DO Unavailable Unavailable SANTIAGO, M BRENDEN DO Unavailable Unavailable SANTIAGO, M BRENDEN DO Unavailable Unavailable SANTIAGO, M BRENDEN DO Unavailable Unavailable SANTIAGO, M BRENDEN DO Unavailable Unavailable SANTIAGO, M BRENDEN DO Unavailable Unavailable SANTIAGO, M BRENDEN DO Unavailable Unavailable SANTIAGO, M BRENDEN DO Unavailable Unavailable SANTIAGO, M BRENDEN DO Unavailable Unavailable SANTIAGO, M BRENDEN DO Unavailable Unavailable SANTIAGO, M BRENDEN DO Unavailable Unavailable SANTIAGO, M BRENDEN DO Unavailable Unavailable SANTIAGO, M BRENDEN DO Unavailable Unavailable SANTIAGO, M BRENDEN DO Unavailable Unavailable SANTIAGO, M BRENDNE DO Unavailable Unavailable SANTIAGO, M BRENDEN DO Unavailable Unavailable SANTIAGO, M BRENDEN DO Unavailable Unavailable SANTIAGO, M BRENDEN DO Unavailable Unavailable SANTIAGO, M BRENDEN DO Unavailable Unavailable SANTIAGO, M BRENDEN DO Unavailable Unavailable SANTIAGO, M BRENDEN DO Unavailable Unavailable SANTIAGO, M BRENDEN DO Unavailable Unavailable SANTIAGO, M BRENDEN DO Unavailable Unavailable SANTIAGO, M BRENDEN DO Unavailable Unavailable SANTIAGO, M BRENDEN DO Unavailable Unavailable SANTIAGO, M BRENDEN DO Unavailable Unavailable SANTIAGO, M BRENDEN DO Unavailable Unavailable SANTIAGO, M BRENDEN DO Unavailable Unavailable SANTIAGO, M BRENDEN DO Unavailable Unavailable SANTIAGO, M BRENDEN DO Unavailable Unavailable SANTIAGO, M BRENDEN DO Unavailable Unavailable SANTIAGO, M BRENDEN DO Unavailable Unavailable SANTIAGO, M BRENDEN DO Unavailable Unavailable SANTIAGO, M BRENDEN DO Unavailable Unavailable SANTIAGO, M BRENDEN DO Unavailable Unavailable SANTIAGO, M BRENDEN DO Unavailable Unavailable SANTIAGO, M BRENDEN DO Unavailable Unavailable SANTIAGO, M BRENDEN DO Unavailable Unavailable SANTIAGO, M BRENDEN DO Unavailable Unavailable SANTIAGO, M BRENDEN DO Unavailable Unavailable SANTIAGO, M BRENDEN DO Unavailable Unavailable SANTIAGO, M BRENDEN DO Unavailable Unavailable SANTIAGO, M BRENDEN DO Unavailable Unavailable SANTIAGO, M BRENDEN DO Unavailable Unavailable SANTIAGO, M BRENDEN DO Unavailable Unavailable SANTIAGO, M BRENDEN DO Unavailable Unavailable SANTIAGO, M BRENDEN DO Unavailable Unavailable SANTIAGO, M BRENDEN DO Unavailable Unavailable SANTIAGO, M BRENDEN DO Unavailable Unavailable SANTIAGO, M BRENDEN DO Unavailable Unavailable SANTIAGO, M BRENDEN DO Unavailable Unavailable SANTIAGO, M BRENDEN DO Unavailable Unavailable SANTIAGO, M BRENDEN DO Unavailable Unavailable Scordo, M Hyacinth PA Unavailable Unavailable Scordo, M Hyacinth PA Unavailable Unavailable Scordo, M Hyacinth PA Unavailable Unavailable Scordo, M Hyacinth PA Unavailable Unavailable Scordo, M Hyacinth PA Unavailable Unavailable Scordo, M Hyacinth PA Unavailable Unavailable Scordo, M Hyacinth PA Unavailable Unavailable Scordo, M Hyacinth PA Unavailable Unavailable Scordo, M Hyacinth PA Unavailable Unavailable Scordo, M Hyacinth PA Unavailable Unavailable Scordo, M Hyacinth PA Unavailable Unavailable Scordo, M Hyacinth PA Unavailable Unavailable Scordo, M Hyacinth PA Unavailable Unavailable Scordo, M Hyacinth PA Unavailable Unavailable Scordo, M Hyacinth PA Unavailable Unavailable Scordo, M Hyacinth PA Unavailable Unavailable Scordo, M Hyacinth PA Unavailable Unavailable Scordo, M Hyacinth PA Unavailable Unavailable Scordo, M Hyacinth PA Unavailable Unavailable Scordo, M Hyacinth PA Unavailable Unavailable Scordo, M Hyacinth PA Unavailable Unavailable Scordo, M Hyacinth PA Unavailable Unavailable Scordo, M Hyacinth PA Unavailable Unavailable Scordo, M Hyacinth PA Unavailable Unavailable Scordo, M Hyacinth PA Unavailable Unavailable Scordo, M Hyacinth PA Unavailable Unavailable Scordo, M Hyacinth PA Unavailable Unavailable Scordo, M Hyacinth PA Unavailable Unavailable Scordo, M Hyacinth PA Unavailable Unavailable Scordo, M Hyacinth PA Unavailable Unavailable Scordo, M Hyacinth PA Unavailable Unavailable Scordo, M Hyacinth PA Unavailable Unavailable Scordo, M Hyacinth PA Unavailable Unavailable Scordo, M Hyacinth PA Unavailable Unavailable Scordo, M Hyacinth PA Unavailable Unavailable Scordo, M Hyacinth PA Unavailable Unavailable Scordo, M Hyacinth PA Unavailable Unavailable Scordo, M Hyacinth PA Unavailable Unavailable Scordo, M Hyacinth PA Unavailable Unavailable Scordo, M Hyacinth PA Unavailable Unavailable Scordo, M Hyacinth PA Unavailable Unavailable Scordo, M Hyacinth PA Unavailable Unavailable Scordo, M Hyacinth PA Unavailable Unavailable Scordo, M Hyacinth PA Unavailable Unavailable Scordo, M Hyacinth PA Unavailable Unavailable Scordo, M Hyacinth PA Unavailable Unavailable Scordo, M Hyacinth PA Unavailable Unavailable Luan ELLIOTT BS, RNC-PERSONAL COMPANION Unavailable Preeti vailable Luan ELLIOTT BS, RNC-PERSONAL COMPANION Unavailable Preeti vailable Luan ELLIOTT BS, RNC-PERSONAL COMPANION Unavailable Pretei vailable Luan ELLIOTT BS, RNC-PERSONAL COMPANION Unavailable Preeti vailable Luan ELLIOTT BS, RNC-PERSONAL COMPANION Unavailable Preeti vailable Luan ELLIOTT BS, RNC-PERSONAL COMPANION Unavailable Preeti vailable VU-KARMEN, A YI BS, RNC-PERSONAL COMPANION Unavailable Preeti vailable VU-KARMEN, A YI BS, RNC-PERSONAL COMPANION Unavailable Preeti vailable VU-KARMEN, A YI BS, RNC-PERSONAL COMPANION Unavailable Preeti vailable VU-KARMEN, A YI BS, RNC-PERSONAL COMPANION Unavailable Preeti vailable VU-KARMEN, A YI BS, RNC-PERSONAL COMPANION Unavailable Preeti vailable VU-KARMEN, A YI BS, RNC-PERSONAL COMPANION Unavailable Preeti vailable VU-KARMEN, A YI BS, RNC-PERSONAL COMPANION Unavailable Preeti vailable VU-KARMEN, A YI BS, RNC-PERSONAL COMPANION Unavailable Preeti vailable VU-KARMEN, A YI BS, RNC-PERSONAL COMPANION Unavailable Preeti vailable VU-KARMEN, A YI BS, RNC-PERSONAL COMPANION Unavailable Preeti vailable VU-KARMEN, A YI BS, RNC-PERSONAL COMPANION Unavailable Preeti vailable VU-KARMEN, A YI BS, RNC-PERSONAL COMPANION Unavailable Preeti vailable VU-KARMEN, A YI BS, RNC-PERSONAL COMPANION Unavailable Preeti vailable VU-KARMEN, A YI BS, RNC-PERSONAL COMPANION Unavailable Preeti vailable VU-KARMEN, A YI BS, RNC-PERSONAL COMPANION Unavailable Preeti vailable VU-KARMEN, A YI BS, RNC-PERSONAL COMPANION Unavailable Preeti vailable VU-KARMEN, A YI BS, RNC-PERSONAL COMPANION Unavailable Preeti vailable VU-KARMEN, A YI BS, RNC-PERSONAL COMPANION Unavailable Preeti vailable VU-KARMEN, A YI BS, RNC-PERSONAL COMPANION Unavailable Preeti vailable VU-KARMEN, A YI BS, RNC-PERSONAL COMPANION Unavailable Preeti vailable VU-KARMEN, A YI BS, RNC-PERSONAL COMPANION Unavailable Preeti vailable VU-KARMEN, A YI BS, RNC-PERSONAL COMPANION Unavailable Preeti vailable VU-KARMEN, A YI BS, RNC-PERSONAL COMPANION Unavailable Preeti vailable VU-KARMEN, A YI BS, RNC-PERSONAL COMPANION Unavailable Preeti vailable VU-KARMEN, A YI BS, RNC-PERSONAL COMPANION Unavailable Preeti vailable VU-KARMEN, A YI BS, RNC-PERSONAL COMPANION Unavailable Preeti vailable VU-KARMEN, A YI BS, RNC-PERSONAL COMPANION Unavailable Preeti vailable VU-KARMEN, A YI BS, RNC-PERSONAL COMPANION Unavailable Preeti vailable VU-KARMEN, A YI BS, RNC-PERSONAL COMPANION Unavailable Preeti vailable VU-KARMEN, A YI BS, RNC-PERSONAL COMPANION Unavailable Preeti vailable VU-KARMEN, A YI BS, RNC-PERSONAL COMPANION Unavailable Preeti vailable VU-KARMEN, A YI BS, RNC-PERSONAL COMPANION Unavailable Preeti vailable VU-KARMEN, A YI BS, RNC-PERSONAL COMPANION Unavailable Preeti vailable VU-KARMEN, A YI BS, RNC-PERSONAL COMPANION Unavailable Preeti vailable Franko, Debbie Unavailable Unavailable SHANTAL, Falguni ALCOCER MD Unavailable Unavailable SHANTAL, Falguni ALCOCER MD Unavailable Unavailable SHANTAL, Falguni ALCOCER MD Unavailable Unavailable SHANTAL, Falguni ALCOCER MD Unavailable Unavailable SHANTAL, Falguni ALCOCER MD Unavailable Unavailable SHANTAL, Falguni ALCOCER MD Unavailable Unavailable SHANTAL, Falguni ALCOCER MD Unavailable Unavailable SHANTAL, Falugni ALCOCER MD Unavailable Unavailable SHANTAL, Falguni ALCOCER MD Unavailable Unavailable SHANTAL, Falguni ALCOCER MD Unavailable Unavailable SHANTAL, Falguni ALCOCER MD Unavailable Unavailable SHANTAL, Falguni ALCOCER MD Unavailable Unavailable SHANTAL, Falguni ALCOCER MD Unavailable Unavailable SHANTAL, Falguni ALCOCER MD Unavailable Unavailable SHANTAL, Falguni ALCOCER MD Unavailable Unavailable SHANTAL, Falguni ALCOCER MD Unavailable Unavailable SHANTAL, Falguni ALCOCER MD Unavailable Unavailable SHANTAL, Falguni ALCOCER MD Unavailable Unavailable SHANTAL, Falguni ALCOCER MD Unavailable Unavailable SHANTAL, Falguni ALCOCER MD Unavailable Unavailable SHANTAL, Falguni ALCOCER MD Unavailable Unavailable SHANTAL, Falguni ALCOCER MD Unavailable Unavailable SHANTAL, Falguni ALCOCER MD Unavailable Unavailable SHANTAL, Falguni ALCOCER MD Unavailable Unavailable SHANTAL, Falguni ALCOCER MD Unavailable Unavailable SHANTAL, Falguni ALCOCER MD Unavailable Unavailable SHANTAL, Falguni ALCOCER MD Unavailable Unavailable SHANTAL, Falguni ALCOCER MD Unavailable Unavailable SHANTAL, E CARLYN CAMPBELL Unavailable Unavailable SHANTAL, E CARLYN CAMPBELL Unavailable Unavailable SHANTAL, E CARLYN CAMPBELL Unavailable Unavailable SHANTAL, E CARLYN CAMPBELL Unavailable Unavailable SHANTAL, E CARLYN CAMPBELL Unavailable Unavailable SHANTAL, E CARLYN CAMPBELL Unavailable Unavailable SHANTAL, E CARLYN CAMPBELL Unavailable Unavailable SHANTAL, E CARLYN CAMPBELL Unavailable Unavailable SHANTAL, E CARLYN CAMPBELL Unavailable Unavailable SHANTAL, E CARLYN CAMPBELL Unavailable Unavailable SHANTAL, E CARLYN CAMPBELL Unavailable Unavailable SHANTAL, E CARLYN CAMPBELL Unavailable Unavailable SHANTAL, E CARLYN CAMPBELL Unavailable Unavailable SHANTAL, E CARLYN CAMPBELL Unavailable Unavailable SHANTAL, E CARLYN CAMPBELL Unavailable Unavailable SHANTAL, E CARLYN CAMPBELL Unavailable Unavailable SHANTAL, E CARLYN CAMPBELL Unavailable Unavailable SHANTAL, E CARLYN CAMPBELL Unavailable Unavailable SHANTAL, E CARLYN CAMPBELL Unavailable Unavailable SHANTAL, E CARLYN CAMPBELL Unavailable Unavailable SHANTAL, E CARLYN CAMPBELL Unavailable Unavailable SHANTAL, E CARLYN CAMPBELL Unavailable Unavailable SHANTAL, E CARLYN CAMPBELL Unavailable Unavailable SHANTAL, E CARLYN CAMPBELL Unavailable Unavailable SHANTAL, E CARLYN CAMPBELL Unavailable Unavailable SHANTAL, E CARLYN CAMPBELL Unavailable Unavailable SHANTAL, E CARLYN CAMPBELL Unavailable Unavailable SHANTAL, E CARLYN CAMPBELL Unavailable Unavailable SHANTAL, E CARLYN CAMPBELL Unavailable Unavailable SHANTAL, E CARLYN CAMPBELL Unavailable Unavailable SHANTAL, E CARLYN CAMPBELL Unavailable Unavailable SHANTAL, E CARLYN CAMPBELL Unavailable Unavailable SHANTAL, E CARLYN CAMPBELL Unavailable Unavailable SHANTAL, E CARLYN CAMPBELL Unavailable Unavailable SHANTAL, E CARLYN CAMPBELL Unavailable Unavailable SHANTAL, E CARLYN CAMPBELL Unavailable Unavailable SHANTAL, E CARLYN CAMPBELL Unavailable Unavailable SHANTAL, E CARLYN CAMPBELL Unavailable Unavailable SHANTAL, E CARLYN CAMPBELL Unavailable Unavailable SHANTAL, E CARLYN CAMPBELL Unavailable Unavailable SHANTAL, E CARLYN CAMPBELL Unavailable Unavailable SHANTAL, E CARLYN CAMPBELL Unavailable Unavailable SHANTAL, E CARLYN CAMPBELL Unavailable Unavailable SHANTAL, E CARLYN CAMPBELL Unavailable Unavailable SHANTAL, E CARLYN CAMPBELL Unavailable Unavailable SHANTAL, E CARLYN CAMPBELL Unavailable Unavailable SHANTAL, E CARLYN CAMPBELL Unavailable Unavailable SHANTAL, E CARLYN CAMPBELL Unavailable Unavailable SHANTAL, E CARLYN CAMPBELL Unavailable Unavailable SHANTAL, E CARLYN CAMPBELL Unavailable Unavailable SHANTAL, E CARLYN CAMPBELL Unavailable Unavailable SHANTAL, E CARLYN CAMPBELL Unavailable Unavailable SHANTAL, E CARLYN CAMPBELL Unavailable Unavailable SHANTAL, E CARLYN CAMPBELL Unavailable Unavailable SHANTAL, E CARLYN CAMPBELL Unavailable Unavailable Re-disclosure Warning The records that you are about to access may contain information from federally-assisted alcohol or drug abuse programs. If such information is present, then the following federally mandated warning applies: This information has been disclosed to you from records protected by federal confidentiality rules (42 CFR part 2). The federal rules prohibit you from making any further disclosure of this information unless further disclosure is expressly permitted by the written consent of the person to whom it pertains or as otherwise permitted by 42 CFR part 2. A general authorization for the release of medical or other information is NOT sufficient for this purpose. The Federal rules restrict any use of the information to criminally investigate or prosecute any alcohol or drug abuse patient.The records that you are about to access may contain highly sensitive health information, the redisclosure of which is protected by Article 27-F of the [facility] Public Health law. If you continue you may have access to information: Regarding HIV / AIDS; Provided by facilities licensed or operated by the [facility] Office of Mental Health; or Provided by the [facility] Office for People With Developmental Disabilities. If such information is present, then the following [facility] mandated warning applies: This information has been disclosed to you from confidential records which are protected by state law. State law prohibits you from making any further disclosure of this information without the specific written consent of the person to whom it pertains, or as otherwise permitted by law. Any unauthorized further disclosure in violation of state law may result in a fine or snf sentence or both. A general authorization for the release of medical or other information is NOT sufficient authorization for further disc losure. Allergies and Adverse Reactions Type Description Substance Reaction Status Data Source(s ) Propensity to adverse reactions to substance Sulfa (Bernstein lfonamide Antibiotics) Group Sulfa (Sulfonamide Antibiotics) Group Hives Active [facility] ([facility]) Family History Family Member Name Family Member Gender Family Member Status Date o f Status Description Data Source(s) Unknown Male Diagnosis 02/18/2014 12:00:00 AM EST [facility] ([facility]) Unknown Male Diagnosis 02/18/2014 12:00:00 AM EST [facility] ([facility]) Encounters Encounter Providers Location Date Indications Data Source(s ) Outpatient Attender: CARLYN MURGUIA MD 09/03/2021 12:00 :00 AM [facility] Brittaney Mcnair NPP: [address] [place] [address], Ph. Attender: BRITTANEY MCNAIR NP [facility] Medical 01/19/2021 12:00:00 AM EST [facility]) Machelle Toribio LMSW: [address] [place] [address], Ph. Attender: Machelle Toribio [facility] Medical 01/18/2021 12:00:00 AM EST LES ([facility]) Machelle Toribio LMSW: [address] [place] [address], Ph. Attender: Machelle Toribio [facility] Medical 01/04/2021 12:00:00 AM EDT LES ([facility]) Outpatient Attender: CARLYN MURGUIA MD [id number] 12:00:00 AM [facility] Outpatient Attender: CARLYN MURGUIA MD 12/11/2020 12:00 :00 AM [facility] DEL Fiore: [address] [place] [address], Ph. Attender: BRITTANEY MCNAIR NP [facility] Medical 12/01/2020 12:00:00 AM EDT [facility] ([facility]) Brittaney Mcnair NPP: [address], [place] [address], Ph. Attender: BRITTANEY MCNAIR NP [facility] Medical 12/01/2020 12:00:00 AM EDT LES ([facility]) Outpatient Attender: BRENDEN HENDERSON DO [facility] [place] 10/31/2020 09:30:00 AM EDT [facility] ([facility]) Hyacinth Ham PA-C: [address], [place] [address], Ph. Attender: Hyacinth HERMAN [facility] Medical 10/12/2020 12:00:00 AM EDT LES ([facility]) Hyacinth Ham PA-C: [address], [place] [address], Ph. Attender: Hyacinth HERMAN [facility] Medical 10/12/2020 12:00:00 AM EDT LES ([facility]) Hyacinth Ham PA-C: [address], [place] [address], Ph. Attender: Hyacinth HERMAN [facility] Medical 10/12/2020 12:00:00 AM EDT LES ([facility]) Extended Individual Psychotherapy - 45 min Attender: Debbie Abdul [facility] Darryl 08/16/2020 01:00:00 AM EDT - 08/16/2020 01:00:00 AM EDT [facility] ([facility]) Attender: Debbie Abdul 08/16/2020 12:00:00 AM EDT [facility] ([facility]) Outpatient Attender: AGATHA LUNA NP [facility] Dylan schultz 08/14/2020 04:30:00 AM EDT - 08/14/2020 04:30:00 AM EDT [facility] ([facility]) Attender: AGATHA LUNA NP 08/14/2020 12:00:00 AM EDT [facility] ([facility]) HCS Without Test Attender: Aziza Rodriguez 08/02/2020 11:00:00 AM EDT - 08/02/2020 11:00:00 AM EDT Pelvic and perineal painHuman immunodeficiency virus [HIV] counselingOther sex counselingEncounter for removal of intrauterine contraceptive device [facility] ([facility]) Pelvic and perineal pain Human immunodeficiency virus [HIV] couns eling Other sex counseling Encounter for removal of intrauterine co ntraceptive device Outpatient Attender: YI ROMAN, RNC -PERSONAL COMPANION [facility] [place] 08/01/2020 02:00:00 PM EDT MED[facility] ([facility]) Extended Individual Psychotherapy - 45 min Attender: Debbie Spearus [facility] 07/26/2020 09:00:00 AM EDT - 07/26/2020 09:00:00 AM EDT [facility] ([facility]) Attender: Debbie Abdul 07/26/2020 12:00:00 AM EDT [facility] ([facility]) Brief Individual Psychotherapy - 30 min Attender: Debbie Barnes [facility] 07/03/2020 12:00:00 PM EDT - 07/03/2020 12:00:00 PM EDT [facility] ([facility]) Attender: Debbie Abdul 07/03/2020 12:00:00 AM EDT [facility] ([facility]) Brief Individual Psychotherapy - 30 min Attender: Debbie Barnes [facility] 06/20/2020 03:30:00 AM EDT - 06/20/2020 03:30:00 AM EDT [facility] ([facility]) Attender: Debbie Abdul 06/20/2020 12:00:00 AM EDT [facility] ([facility]) Outpatient Attender: AGATHA LUNA NP [facility] 06/14/2020 04:00:00 AM EDT - 06/14/2020 04:00:00 AM EDT [facility] ([facility]) Attender: AGATHA LUNA NP 06/14/2020 12:00:00 AM EDT [facility] ([facility]) Attender: Debbie Franko 05/31/2020 12:00:00 AM EDT [facility] ([facility]) Brief Individual Psychotherapy - 30 min Attender: Debbie Barnes [facility] 05/30/2020 04:00:00 AM EDT - 05/30/2020 04:00:00 AM EDT [facility] ([facility]) Extended Individual Psychotherapy - 45 min Attender: Debbie Franko [facility] 05/09/2020 03:30:00 AM EST - 05/09/2020 03:30:00 AM EST [facility] ([facility]) Attender: Debbie Abdul 05/09/2020 12:00:00 AM EST [facility] ([facility]) Brief Individual Psychotherapy - 30 min Attender: Debbie Barnes [facility] 04/20/2020 04:00:00 AM EST - 04/20/2020 04:00:00 AM EST [facility] ([facility]) Attender: Debbie Spearus 04/20/2020 12:00:00 AM EST [facility] ([facility]) Office Visit Attender: YI ROMAN, RNC -PERSONAL COMPANION [facility] [place] 04/18/2020 02:00:00 PM EST [facility] ([facility]) Outpatient Attender: AGATHA LUNA NP [facility] 04/18/2020 05:30:00 AM EST - 04/18/2020 05:30:00 AM EST [facility] ([facility]) Attender: AGATHA LUNA NP 04/18/2020 12:00:00 AM EST [facility] ([facility]) Hyacinth Ham PA-C: [address], [place] [address], Ph. Attender: Hyacinth HERMAN [facility] Medical 04/14/2020 12:00:00 AM EST LES ([facility]) Hyacinth Ham PA-C: [address], [place] [address], Ph. Attender: Hyacinth HERMAN [facility] Medical 04/14/2020 12:00:00 AM EST LES ([facility]) Hyacinth Ham PA-C: [address], [place] [address], Ph. Attender: Hyacinth HERMAN [facility] Medical 04/14/2020 12:00:00 AM EST LES ([facility]) Hyacinth Ham PA-C: [address], [place] [address], Ph. Attender: Hyacinth HERMAN [facility] Medical 04/14/2020 12:00:00 AM EST LES ([facility]) Attender: Debbie Abdul 04/05/2020 12:00:00 AM EST [facility] ([facility]) Extended Individual Psychotherapy - 45 min Attender: Debbie Abdul [facility] 04/04/2020 04:00:00 AM EST - 04/04/2020 04:00:00 AM EST [facility] ([facility]) Outpatient Attender: AGATHA LUNA NP [facility] Dylan schultz 03/20/2020 04:30:00 AM EST - 03/20/2020 04:30:00 AM EST [facility] ([facility]) Attender: AGATHA LUNA NP 03/20/2020 12:00:00 AM EST [facility] ([facility]) Extended Individual Psychotherapy - 45 min Attender: Debbie Abdul [facility] 03/14/2020 03:00:00 AM EST - 03/14/2020 03:00:00 AM EST [facility] ([facility]) Attender: Debbie Spearus 03/14/2020 12:00:00 AM EST [facility] ([facility]) Office Visit Attender: YI ROMAN, RNC -PERSONAL COMPANION [facility] [place] 03/08/2020 08:30:00 AM EST [facility] ([facility]) Brief Individual Psychotherapy - 30 min [facility]16[facility] 03:30:00 AM EST - 02/16/2020 03:30:00 AM EST [facility] ([facility]) Attender: Debbie Abdul 02/16/2020 12:00:00 AM EST [facility] ([facility]) Office Visit Attender: YI ROMAN, RNC -PERSONAL COMPANION [facility] [place] 02/02/2020 12:30:00 PM EST [facility] ([facility]) Outpatient Attender: AGATHA LUNA NP [facility] 01/31/2020 05:00:00 AM EST - 01/31/2020 05:00:00 AM EST [facility] ([facility]) Extended Individual Psychotherapy - 45 min Attender: Debbie Abdul [facility] 01/31/2020 03:00:00 AM EST - 01/31/2020 03:00:00 AM EST [facility] ([facility]) Attender: AGATHA LUNA NP 01/31/2020 12:00:00 AM EST [facility] ([facility]) Attender: Debbie Abdul 01/31/2020 12:00:00 AM EST [facility] ([facility]) Inpatient Attender: BRENDEN HENDERSON DO 01/25/2020 07:33:52 AM EST [facility] [place] [facility] Office Visit Attender: BRENDEN HENDERSON DO [facility] [place] 01/25/2020 03:43:00 AM EST [facility]) Inpatient Attender: BRENDEN HENDERSON DOAdmitter: BRENDEN DICKEY DO 01/24/2020 05:30:00 AM EST - 01/25/2020 01:01:00 PM EST MORBID OBESTIY E66.01 [facility] MORBID OBESTIY E66.01 Patient discharged. ( in Healthcare facility) Attender: FRANCK HENDERSON DOAdmitter: BRENDEN HENDERSON DO 01/24/2020 05:30:00 AM EST [facility] Outpatient Attender: BRENDEN HENDERSON DO 01/19/2020 12:19:48 AM EST [facility] [place] [facility] BETSY WatersC: [address], [place] [address], Ph. Attender: Hyacinth HERMAN [facility] Medical 01/19/2020 12:00:00 AM EST LES ([facility]) Hyacinth Ham PA-C: [address], [place] [address], Ph. Attender: Hyacinth HERMAN [facility] 01/19/2020 12:00:00 AM EST LES ([facility]) Hyacinth Ham PA-C: [address], [place] [address], Ph. Attender: Hyacinth HERMAN [facility] Medical 01/19/2020 12:00:00 AM EST LES ([facility]) Hyacinth Ham PA-C: [address], [place] [address], Ph. Attender: Hyacinth HERMAN [facility] Medical 01/19/2020 12:00:00 AM EST LES ([facility]) Hyacinth Ham PA-C: [address], [place] [address], Ph. Attender: Hyacinth HERMAN [facility] Medical 01/19/2020 12:00:00 AM EST LES ([facility]) Outpatient Attender: BRENDEN HENDERSON DO 01/18/2020 07 :10:00 PM EST TYPE [facility] SCREEN [facility] TYPE AND SCREEN Outpatient Attender: YI ROMAN, RNC -PERSONAL COMPANION [facility] [place] 01/18/2020 03:15:00 PM EST [facility] ([facility]) Brief Individual Psychotherapy - 30 min Attender: Debbie atkinson [facility] 01/13/2020 04:30:00 AM EST - 01/13/2020 04:30:00 AM EST [facility] ([facility]) Attender: Debbie Abdul 01/13/2020 12:00:00 AM EST [facility] ([facility]) Outpatient Attender: RADHA NEWTON 01/05/2020 05:09:00 P M EDT [facility] Outpatient Attender: YI ROMAN, RNC -PERSONAL COMPANION CMP [facility] [place] 01/04/2020 04:00:00 PM EDT [facility] ([facility]) Outpatient Attender: AGATHA LUNA NP [facility] 01/03/2020 05:30:00 AM EDT - 01/03/2020 05:30:00 AM EDT [facility] ([facility]) Attender: AGATHA LUNA NP 01/03/2020 12:00:00 AM EDT [facility] ([facility]) Attender: Debbie Abdul 12/24/2019 12:00:00 AM EDT [facility] ([facility]) Brief Individual Psychotherapy - 30 min Attender: Debbie Barnes [facility] 12/23/2019 04:30:00 AM EDT - 12/23/2019 04:30:00 AM EDT [facility] ([facility]) Outpatient Attender: ALICE HERMAN [id number] 12/09/2019 1 2:00:00 AM EDT Malignant neoplasm of thyroid gland [facility] Malignant neoplasm of thyroid gland [id number]"Psychotherapy Attender: Debbie Abdul [facility] 12/08/2019 03:00:00 AM EDT - 12/08/2019 03:00:00 AM EDT [facility] ([facility]) Attender: Debbie Abdul 12/08/2019 12:00:00 AM EDT [facility]) Outpatient Attender: RADHA NEWTON 12/07/2019 04:31:00 P M EDT [facility] Outpatient Attender: YI ELLIOTT BS, RNC -PERSONAL COMPANION CMP [facility] [place] 12/06/2019 04:00:00 PM EDT [facility] ([facility]) Functional Status Immunizations Vaccine Date Status Description Data Source(s) COVID-19 VACCINE Pfizer 06/09/2020 12:00:00 AM EDT completed [place] Vaccine Series Complete: YESThis Data wa s Submitted to [facility] Via [employer]. COVID-19, mRNA, LNP-S, PF, 100 mcg/0.5 mL dose (Modern a) 05/19/2020 12:00:00 AM EST completed 05/19/2020 [facility] ([facility]) COVID-19, mRNA, LNP-S, PF, 100 mcg/0.5 mL dose 05/19/2020 12 :00:00 AM EST completed 05/19/2020 [facility] ([facility]) COVID-19, mRNA, LNP-S, PF, 100 mcg/0.5 mL dose 05/19/2020 12 :00:00 AM EST completed 05/19/2020 [facility] ([facility]) COVID-19 VACCINE Pfizer 05/19/2020 12:00:00 AM EST completed [place] Vaccine Series Complete: NOThis Data was Submitted to [facility] Via [employer]. New in 2012. IIV4 12/09/2019 12:00:00 AM EDT completed 12/09/19 [facility] ([facility]) New in 2012. IIV4 12/09/2019 12:00:00 AM EDT completed 12/09/19 20 [facility] ([facility]) New in 2012. IIV4 12/09/2019 12:00:00 AM EDT completed 12/09/19 20 [facility] ([facility]) Medications Medication Brand Name Start Date Product Form Dose Route Admi nistrative Instructions Pharmacy Instructions Status Indications Reaction Description Data Source(s) Nystatin 100 UNT/MG Topical Powder Nystatin 10/02/2020 12:00:00 AM EDT active [facility] ([facility]) Hydroxyzine Hydrochloride 25 MG Oral Tablet hydroxyzine HCl 05/17/2020 12:00:00 AM EST 25 mg by mouth completed <td ID="MedicationRxNorm_3">401465</td><td ID="MedicationMedication_3">hydroxyzine HCl</td><td ID="MedicationRoute_3">by mouth</td><td ID="MedicationRouteConcept_3">W69381</td><td ID="MedicationStartDate_3">05/17/2020</td><td ID="MedicationStopDate_3">09/12/2020</td><td ID="MedicationDosageFrequency_3">at bedtime</td><td ID="MedicationDuration_3">30</td><td ID="MedicationFormulaStrength_3">25 mg</td><td ID="MedicationDosageForm_3">tablet</td><td ID="MedicationDosageFormCode_3"></td><td ID="MedicationDosageDescription_3"></td><td ID="MedicationMedicationId_3">[id number]</td><td ID="MedicationAccount_3">[id number]</td><td ID="MedicationNpid_3">[id number]</td><td ID="MedicationAuthorFirstName_3">Agatha</td><td ID="MedicationAuthorLastName_3">Cheryl</td><td ID="MedicationTaxonomyCode_3">[id number]</td><td ID="MedicationTaxonomyDesc_3">Nurse Practitioner</td><td ID="MedicationPhoneNumber_3">[phone]</td> [facility] ([facility]) Hydroxyzine Hydrochloride 25 MG Oral Tablet hydroxyzine HCl 05/17/2020 12:00:00 AM EST 25 mg by mouth completed <td ID="MedicationRxNorm_2">773300</td><td ID="MedicationMedication_2">hydroxyzine HCl</td><td ID="MedicationRoute_2">by mouth</td><td ID="MedicationRouteConcept_2">F54261</td><td ID="MedicationStartDate_2">05/17/2020</td><td ID="MedicationStopDate_2">09/12/2020</td><td ID="MedicationDosageFrequency_2">at bedtime</td><td ID="MedicationDuration_2">30</td><td ID="MedicationFormulaStrength_2">25 mg</td><td ID="MedicationDosageForm_2">tablet</td><td ID="MedicationDosageFormCode_2"></td><td ID="MedicationDosageDescription_2"></td><td ID="MedicationMedicationId_2">[id number]</td><td ID="MedicationAccount_2">[id number]</td><td ID="MedicationNpid_2">[id number]</td><td ID="MedicationAuthorFirstName_2">Agatha</td><td ID="MedicationAuthorLastName_2">Cheryl</td><td ID="MedicationTaxonomyCode_2">[id number]</td><td ID="MedicationTaxonomyDesc_2">Nurse Practitioner</td><td ID="MedicationPhoneNumber_2">[phone]</td> [facility] ([facility]) Hydroxyzine Hydrochloride 25 MG Oral Tablet hydroxyzine HCl 05/17/2020 12:00:00 AM EST 25 mg by mouth completed <td ID="MedicationRxNorm_1">505529</td><td ID="MedicationMedication_1">hydroxyzine HCl</td><td ID="MedicationRoute_1">by mouth</td><td ID="MedicationRouteConcept_1">B10751</td><td ID="MedicationStartDate_1">05/17/2020</td><td ID="MedicationStopDate_1">09/12/2020</td><td ID="MedicationDosageFrequency_1">at bedtime</td><td ID="MedicationDuration_1">30</td><td ID="MedicationFormulaStrength_1">25 mg</td><td ID="MedicationDosageForm_1">tablet</td><td ID="MedicationDosageFormCode_1"></td><td ID="MedicationDosageDescription_1"></td><td ID="MedicationMedicationId_1">[id number]</td><td ID="MedicationAccount_1">[id number]</td><td ID="MedicationNpid_1">[id number]</td><td ID="MedicationAuthorFirstName_1">Agatha</td><td ID="MedicationAuthorLastName_1">Cheryl</td><td ID="MedicationTaxonomyCode_1">[id number]</td><td ID="MedicationTaxonomyDesc_1">Nurse Practitioner</td><td ID="MedicationPhoneNumber_1">[phone]</td> [facility] ([facility]) lamotrigine 25 MG Oral Tablet lamotrigine 05/17/2020 12:00:00 AM EST 25 mg by mouth completed <td ID="Medica tionRxNorm_1">195288</td><td ID="MedicationMedication_1">lamotrigine</td><td ID="MedicationRoute_1">by mouth</td><td ID="MedicationRouteConcept_1">S93995</td><td ID="MedicationStartDate_1">05/17/2020</td><td ID="MedicationStopDate_1">07/14/2020</td><td ID="MedicationDosageFrequency_1">once a day</td><td ID="MedicationDuration_1">30</td><td ID="MedicationFormulaStrength_1">25 mg</td><td ID="MedicationDosageForm_1">tablet</td><td ID="MedicationDosageFormCode_1"></td><td ID="MedicationDosageDescription_1"></td><td ID="MedicationMedicationId_1">[id number]</td><td ID="MedicationAccount_1">[id number]</td><td ID="MedicationNpid_1">[id number]</td><td ID="MedicationAuthorFirstName_1">Agatha</td><td ID="MedicationAuthorLastName_1">Cheryl</td><td ID="MedicationTaxonomyCode_1">[id number]</td><td ID="MedicationTaxonomyDesc_1">Nurse Practitioner</td><td ID="MedicationPhoneNumber_1">[phone]</td> [facility] ([facility]) Calcium Carbonate 1250 MG / Cholecalciferol 0.01 MG Oral Tab let Calcium 500 +D 04/18/2020 12:00:00 AM EST ORAL active [facility] ([facility]) Childrens Chewable Multivitamin With Iron 04/18/2020 12:00:0 0 AM EST ORAL active [facility] ([facility]) Vitamin B 12 1 MG Oral Tablet [facility] Vitamin B12 04/18/2020 12:00:[address] active [facility] ([facility]) lamotrigine 25 MG Oral Tablet lamotrigine 04/18/2020 12:00:00 AM EST 25 mg by mouth completed <td ID="Medica tionRxNorm_2">653204</td><td ID="MedicationMedication_2">lamotrigine</td><td ID="MedicationRoute_2">by mouth</td><td ID="MedicationRouteConcept_2">D16593</td><td ID="MedicationStartDate_2">04/18/2020</td><td ID="MedicationStopDate_2">05/18/2020</td><td ID="MedicationDosageFrequency_2">once a day</td><td ID="MedicationDuration_2">30</td><td ID="MedicationFormulaStrength_2">25 mg</td><td ID="MedicationDosageForm_2">tablet</td><td ID="MedicationDosageFormCode_2"></td><td ID="MedicationDosageDescription_2"></td><td ID="MedicationMedicationId_2">[id number]</td><td ID="MedicationAccount_2">[id number]</td><td ID="MedicationNpid_2">[id number]</td><td ID="MedicationAuthorFirstName_2">Agatha</td><td ID="MedicationAuthorLastName_2">Cheryl</td><td ID="MedicationTaxonomyCode_2">[id number]</td><td ID="MedicationTaxonomyDesc_2">Nurse Practitioner</td><td ID="MedicationPhoneNumber_2">[phone]</td> [facility] ([facility]) vilazodone hydrochloride 20 MG Oral Tablet [Viibryd] Viibryd 03/20/2020 12:00:00 AM EST 20 mg by mouth completed <td ID="MedicationRxNorm_3">4130076</td><td ID="MedicationMedication_3">Viibryd</td><td ID="MedicationRoute_3">by mouth</td><td ID="MedicationRouteConcept_3">T33247</td><td ID="MedicationStartDate_3">03/20/2020</td><td ID="MedicationStopDate_3">06/17/2020</td><td ID="MedicationDosageFrequency_3">every morning</td><td ID="MedicationDuration_3">30</td><td ID="MedicationFormulaStrength_3">20 mg</td><td ID="MedicationDosageForm_3">tablet</td><td ID="MedicationDosageFormCode_3"></td><td ID="MedicationDosageDescription_3"> </td><td ID="MedicationMedicationId_3">[id number]</td><td ID="MedicationAccount_3">[id number]</td><td ID="MedicationNpid_3">[id number]</td><td ID="MedicationAuthorFirstName_3">Agatha</td><td ID="MedicationAuthorLastName_3">Cheryl</td><td ID="MedicationTaxonomyCode_3">[id number]</td><td ID="MedicationTaxonomyDesc_3">Nurse Practitioner</td><td ID="MedicationPhoneNumber_3">[phone]</td> [facility] ([facility]) vilazodone hydrochloride 20 MG Oral Tablet [Viibryd] Viibryd 03/20/2020 12:00:00 AM EST 20 mg by mouth completed <td ID="MedicationRxNorm_2">0493766</td><td ID="MedicationMedication_2">Viibryd</td><td ID="MedicationRoute_2">by mouth</td><td ID="MedicationRouteConcept_2">B39042</td><td ID="MedicationStartDate_2">03/20/2020</td><td ID="MedicationStopDate_2">08/13/2020</td><td ID="MedicationDosageFrequency_2">every morning</td><td ID="MedicationDuration_2">30</td><td ID="MedicationFormulaStrength_2">20 mg</td><td ID="MedicationDosageForm_2">tablet</td><td ID="MedicationDosageFormCode_2"></td><td ID="MedicationDosageDescription_2"> </td><td ID="MedicationMedicationId_2">[id number]</td><td ID="MedicationAccount_2">[id number]</td><td ID="MedicationNpid_2">[id number]</td><td ID="MedicationAuthorFirstName_2">Agatha</td><td ID="MedicationAuthorLastName_2">Cheryl</td><td ID="MedicationTaxonomyCode_2">[id number]</td><td ID="MedicationTaxonomyDesc_2">Nurse Practitioner</td><td ID="MedicationPhoneNumber_2">[phone]</td> [facility] vilazodone hydrochloride 20 MG Oral Tablet [Viibryd] Viibryd 03/20/2020 12:00:00 AM EST 20 mg by mouth completed <td ID="MedicationRxNorm_1">5515815</td><td ID="MedicationMedication_1">Viibryd</td><td ID="MedicationRoute_1">by mouth</td><td ID="MedicationRouteConcept_1">Z54822</td><td ID="MedicationStartDate_1">03/20/2020</td><td ID="MedicationStopDate_1">08/13/2020</td><td ID="MedicationDosageFrequency_1">every morning</td><td ID="MedicationDuration_1">30</td><td ID="MedicationFormulaStrength_1">20 mg</td><td ID="MedicationDosageForm_1">tablet</td><td ID="MedicationDosageFormCode_1"></td><td ID="MedicationDosageDescription_1"> </td><td ID="MedicationMedicationId_1">[id number]</td><td ID="MedicationAccount_1">[id number]</td><td ID="MedicationNpid_1">[id number]</td><td ID="MedicationAuthorFirstName_1">Agatha</td><td ID="MedicationAuthorLastName_1">Cheryl</td><td ID="MedicationTaxonomyCode_1">[id number]</td><td ID="MedicationTaxonomyDesc_1">Nurse Practitioner</td><td ID="MedicationPhoneNumber_1">[phone]</td> [facility] ([facility]) Levothyroxine Sodium 0.2 MG Oral Tablet Levothyroxine Sodium 200 MCG Oral Tablet (SYNTHROID) Levothyroxine Sodium 200 MCG Oral Tablet (SYNTHROID) 1 12:00:00 AM EDT 200 ug Oral active Take 1 t ablet by mouth daily [facility] Hydroxyzine Hydrochloride 25 MG Oral Tablet hydroxyzine HCl 12/07/2019 12:00:00 AM EDT 25 mg by mouth completed <td ID="MedicationRxNorm_3">907281</td><td ID="MedicationMedication_3">hydroxyzine HCl</td><td ID="MedicationRoute_3">by mouth</td><td ID="MedicationRouteConcept_3">O80432</td><td ID="MedicationStartDate_3">12/07/2019</td><td ID="MedicationStopDate_3">06/18/2020</td><td ID="MedicationDosageFrequency_3">three times a day</td><td ID="MedicationDuration_3">30</td><td ID="MedicationFormulaStrength_3">25 mg</td><td ID="MedicationDosageForm_3">tablet</td><td ID="MedicationDosageFormCode_3"></td><td ID="MedicationDosageDescription_3">as needed</td><td ID="MedicationMedicationId_3">[id number]</td><td ID="MedicationAccount_3">[id number]</td><td ID="MedicationNpid_3">[id number]</td><td ID="MedicationAuthorFirstName_3">Agatha</td><td ID="MedicationAuthorLastName_3">Cheryl</td><td ID="MedicationTaxonomyCode_3">[id number]</td><td ID="MedicationTaxonomyDesc_3">Nurse Practitioner</td><td ID="MedicationPhoneNumber_3">[phone]</td> [facility] Hydroxyzine Hydrochloride 25 MG Oral Tablet hydroxyzine HCl 12/07/2019 12:00:00 AM EDT 25 mg by mouth completed <td ID="MedicationRxNorm_2">688646</td><td ID="MedicationMedication_2">hydroxyzine HCl</td><td ID="MedicationRoute_2">by mouth</td><td ID="MedicationRouteConcept_2">M29207</td><td ID="MedicationStartDate_2">12/07/2019</td><td ID="MedicationStopDate_2">02/02/2020</td><td ID="MedicationDosageFrequency_2">three times a day</td><td ID="MedicationDuration_2">30</td><td ID="MedicationFormulaStrength_2">25 mg</td><td ID="MedicationDosageForm_2">tablet</td><td ID="MedicationDosageFormCode_2"></td><td ID="MedicationDosageDescription_2">as needed</td><td ID="MedicationMedicationId_2">[id number]</td><td ID="MedicationAccount_2">[id number]</td><td ID="MedicationNpid_2">[id number]</td><td ID="MedicationAuthorFirstName_2">Agatha</td><td ID="MedicationAuthorLastName_2">Cheryl</td><td ID="MedicationTaxonomyCode_2">[id number]</td><td ID="MedicationTaxonomyDesc_2">Nurse Practitioner</td><td ID="MedicationPhoneNumber_2">[phone]</td> [facility] ([facility]) Hydroxyzine Hydrochloride 25 MG Oral Tablet hydroxyzine HCl 12/07/2019 12:00:00 AM EDT 25 mg by mouth completed <td ID="MedicationRxNorm_1">061141</td><td ID="MedicationMedication_1">hydroxyzine HCl</td><td ID="MedicationRoute_1">by mouth</td><td ID="MedicationRouteConcept_1">A04476</td><td ID="MedicationStartDate_1">12/07/2019</td><td ID="MedicationStopDate_1"></td><td ID="MedicationDosageFrequency_1">three times a day</td><td ID="MedicationDuration_1">30</td><td ID="MedicationFormulaStrength_1">25 mg</td><td ID="MedicationDosageForm_1">tablet</td><td ID="MedicationDosageFormCode_1"></td><td ID="MedicationDosageDescription_1">as needed</td><td ID="MedicationMedicationId_1">[id number]</td><td ID="MedicationAccount_1">[id number]</td><td ID="MedicationNpid_1">[id number]</td><td ID="MedicationAuthorFirstName_1">Agatha</td><td ID="MedicationAuthorLastName_1">Cheryl</td><td ID="MedicationTaxonomyCode_1">[id number]</td><td ID="MedicationTaxonomyDesc_1">Nurse Practitioner</td><td ID="MedicationPhoneNumber_1">[phone]</td> [facility] ([facility]) topiramate 50 MG Oral Tablet [Topamax] Topamax 09/14/2019 12:0 0:00 AM EDT 50 mg by mouth completed <td ID="Me dicationRxNorm_2">887110</td><td ID="MedicationMedication_2">Topamax</td><td ID="MedicationRoute_2">by mouth</td><td ID="MedicationRouteConcept_2">I75981</td><td ID="MedicationStartDate_2">09/14/2019</td><td ID="MedicationStopDate_2">06/18/2020</td><td ID="MedicationDosageFrequency_2">at bedtime</td><td ID="MedicationDuration_2">30</td><td ID="MedicationFormulaStrength_2">50 mg</td><td ID="MedicationDosageForm_2">tablet</td><td ID="MedicationDosageFormCode_2"></td><td ID="MedicationDosageDescription_2"></td><td ID="MedicationMedicationId_2">[id number]</td><td ID="MedicationAccount_2">[id number]</td><td ID="MedicationNpid_2">[id number]</td><td ID="MedicationAuthorFirstName_2">Agatha</td><td ID="MedicationAuthorLastName_2">Cheryl</td><td ID="MedicationTaxonomyCode_2">[id number]</td><td ID="MedicationTaxonomyDesc_2">Nurse Practitioner</td><td ID="MedicationPhoneNumber_2">[phone]</td> [facility]) topiramate 50 MG Oral Tablet [Topamax] Topamax 09/14/2019 12:0 0:00 AM EDT 50 mg by mouth completed <td ID="Me dicationRxNorm_3">168793</td><td ID="MedicationMedication_3">Topamax</td><td ID="MedicationRoute_3">by mouth</td><td ID="MedicationRouteConcept_3">L32476</td><td ID="MedicationStartDate_3">09/14/2019</td><td ID="MedicationStopDate_3">03/03/2020</td><td ID="MedicationDosageFrequency_3">at bedtime</td><td ID="MedicationDuration_3">30</td><td ID="MedicationFormulaStrength_3">50 mg</td><td ID="MedicationDosageForm_3">tablet</td><td ID="MedicationDosageFormCode_3"></td><td ID="MedicationDosageDescription_3"></td><td ID="MedicationMedicationId_3">[id number]</td><td ID="MedicationAccount_3">[id number]</td><td ID="MedicationNpid_3">[id number]</td><td ID="MedicationAuthorFirstName_3">Agatha</td><td ID="MedicationAuthorLastName_3">Cheryl</td><td ID="MedicationTaxonomyCode_3">[id number]</td><td ID="MedicationTaxonomyDesc_3">Nurse Practitioner</td><td ID="MedicationPhoneNumber_3">[phone]</td> [facility] ([facility]) topiramate 50 MG Oral Tablet [Topamax] Topamax 09/14/2019 12:0 0:00 AM EDT 50 mg by mouth completed <td ID="Me dicationRxNorm_1">[id number]</td><td ID="MedicationMedication_1">Topamax</td><td ID="MedicationRoute_1">by mouth</td><td ID="MedicationRouteConcept_1">M44002</td><td ID="MedicationStartDate_1">09/14/2019</td><td ID="MedicationStopDate_1">03/03/2020</td><td ID="MedicationDosageFrequency_1">at bedtime</td><td ID="MedicationDuration_1">30</td><td ID="MedicationFormulaStrength_1">50 mg</td><td ID="MedicationDosageForm_1">tablet</td><td ID="MedicationDosageFormCode_1"></td><td ID="MedicationDosageDescription_1"></td><td ID="MedicationMedicationId_1">[id number]</td><td ID="MedicationAccount_1">[id number]</td><td ID="MedicationNpid_1">[id number]</td><td ID="MedicationAuthorFirstName_1">Agatha</td><td ID="MedicationAuthorLastName_1">Cheryl</td><td ID="MedicationTaxonomyCode_1">[id number]</td><td ID="MedicationTaxonomyDesc_1">Nurse Practitioner</td><td ID="MedicationPhoneNumber_1">[phone]</td> [facility] ([facility]) Acetaminophen 325 MG / Oxycodone Hydroch loride 5 MG Oral Tablet oxyCODONE- Acetaminophen 5-325 MG Oral Tablet (PERCOCET) oxyCODONE-Acetaminophen 5-325 MG Oral Tablet (PERCOCET) 08/13/2019 12:00:00 AM EDT aborted TAKE 1 TO 2 TABLETS BY MOUTH EVERY 6 HOURS NEEDED FOR PAIN . DO NOT EXCEED 6 PER 24 HOURS [facility] Levothyroxine Sodium 0.2 MG Oral Tablet levothyroxine (SYNTHROID, LEVOTHROID) 200 MCG tablet levothyroxine (SYNTHROID, LEVOTHROID) 200 MCG tablet 0 08/19/2018 12:00:00 AM EDT aborted TAKE 1 TABLET BY MOUTH ONCE DAILY [facility] 24 HR venlafaxine 75 MG Extended Release Oral Capsule venlafaxine (EFFEXOR-XR) 75 MG 24 hr capsule venlafaxine (EFFEXOR-XR) 75 MG 24 hr capsule 10/10/201 7 12:00:00 AM EDT 75 mg Oral aborted Take 75 mg by mouth daily [facility] Cholecalciferol 1000 UNT Oral Capsule Ch olecalciferol (VITAMIN D-3) [address] [facility] Cholecalciferol (VITAMIN D-3) 1000 UNITS CAPS 06/04/2013 12:00:0 0 AM EDT 1000 {capsule} Oral aborted Vitamin D deficiency Take 1,000 capsules by mouth daily. [facility] Vitamin D deficiency buspirone hydrochloride 10 MG Oral Tablet buspirone 10 mg tablet buspirone 10 mg tablet completed buspirone hydr ochloride 10 MG Oral Tablet [facility] ([facility]) Oxycodone Hydrochloride 5 MG Oral Tablet oxycodone 5 mg tablet TAKE 1 TABLET BY MOUTH EVERY 6 HOURS NEEDED FOR PAIN . DO NOT EXCEED 4 PER 24 HOURS oxycodone 5 mg tablet TAKE 1 TABLET BY MOUTH EVERY 6 HOURS NEEDED FOR PAIN . DO NOT EXCEED 4 PER 24 HOURS completed oxycodone hydrochloride 5 MG Oral Tablet [facility] ([facility]) Sertraline 50 MG Oral Tablet sertraline 50 mg tablet sertraline 50 mg tablet completed sertraline 50 MG Oral Tablet L[facility] ([facility]) Amoxicillin 500 MG Oral Capsule amoxicil wilbert 500 mg capsule TAKE 1 CAPSULE BY MOUTH EVERY 12 HOURS FOR 10 DAYS amoxicillin 500 mg capsule TAKE 1 CAPSUL E BY MOUTH EVERY 12 HOURS FOR 10 DAYS compl eted amoxicillin 500 MG Oral Capsule L[facility] ([facility]) Oxycodone Hydrochloride 5 MG Oral Tablet oxycodone 5 mg tablet TAKE 1 TABLET BY MOUTH EVERY 6 HOURS NEEDED FOR PAIN . DO NOT EXCEED 4 PER 24 HOURS oxycodone 5 mg tablet TAKE 1 TABLET BY MOUTH EVERY 6 HOURS NEEDED FOR PAIN . DO NOT EXCEED 4 PER 24 HOURS completed oxycodone hydrochloride 5 MG Oral Tablet [facility] ([facility]) 24 HR Bupropion Hydrochloride 150 MG Ext ended Release Oral Tablet bupropion HCl XL 150 mg 24 hr tablet, extended release TAKE 1 TABLET BY MOUTH ONCE DAILY IN THE MORNING bupropion HCl XL 150 mg 24 hr tablet, ex tended release TAKE 1 TABLET BY MOUTH ONCE DAILY IN THE MORNING co mpleted 24 HR bupropion hydrochloride 150 MG Extended Release Oral Tablet L[facility] ([facility]) Ibuprofen 800 MG Oral Tablet ibuprofen 8 00 mg tablet TAKE 1 TABLET BY MOUTH EVERY 8 HOURS NEEDED FOR PAIN ibuprofen 800 mg tablet TAKE 1 TABLET BY MOUTH EVERY 8 HOURS NEEDED FOR PAIN compl eted ibuprofen 800 MG Oral Tablet LES ([facility]) Prednisone 20 MG Oral Tablet prednisone 20 mg tablet TAKE 2 TABLETS BY MOUTH IN THE MORNING FOR 5 DAYS prednisone 20 mg tablet TAKE 2 TABLETS B Y MOUTH IN THE MORNING FOR 5 DAYS completed pre dnisone 20 MG Oral Tablet L[facility] ([facility]) Acetaminophen 325 MG / Oxycodone Hydroch loride 5 MG Oral Tablet oxycodone- acetaminophen 5 mg-325 mg tablet oxycodone-acetaminophen 5 mg-325 mg tablet completed acetaminop hen 325 MG / oxycodone hydrochloride 5 MG Oral Tablet LES ([facility]) Amoxicillin 500 MG Oral Capsule amoxicil wilbert 500 mg capsule TAKE 2 CAPSULES BY MOUTH ONCE DAILY amoxicillin 500 mg capsule TAKE 2 CAPSULES BY MOUTH ON CE DAILY completed amoxicillin 50 0 MG Oral Capsule [facility] ([facility]) Omeprazole 40 MG Delayed Release Oral Ca psule omeprazole 40 mg capsule,delayed release TAKE 1 CAPSULE BY MOUTH ONCE DAILY omeprazole 40 mg capsule,delayed release TAKE 1 CAPSULE BY MOUTH ONCE DAILY completed omeprazole 40 MG Delayed Release Oral Capsule [facility] ([facility]) aripiprazole 5 MG Oral Tablet aripiprazo le 5 mg tablet TAKE 1 TABLET BY MOUTH AT BEDTIME aripiprazole 5 mg tablet TAKE 1 TABLET BY MOUTH AT BEDTIME completed aripiprazole 5 MG Oral Tablet AT [facility] ([facility]) Sertraline 50 MG Oral Tablet sertraline 50 mg tablet sertraline 50 mg tablet completed sertraline 50 MG Oral Tablet [facility] ([facility]) Ibuprofen 800 MG Oral Tablet ibuprofen 8 00 mg tablet TAKE 1 TABLET BY MOUTH EVERY 8 HOURS NEEDED FOR PAIN ibuprofen 800 mg tablet TAKE 1 TABLET BY MOUTH EVERY 8 HOURS NEEDED FOR PAIN compl eted ibuprofen 800 MG Oral Tablet [facility] ([facility]) lamotrigine 25 MG Oral Tablet lamotrigine 25 mg tablet lamot rigine 25 mg tablet completed lamotrigine 25 MG Oral Tablet [facility] ([facility]) vilazodone hydrochloride 10 MG Oral Tabl et [Viibryd] Viibryd 10 mg tablet TAKE 1 TABLET BY MOUTH ONCE DAILY IN THE MORNING Viibryd 10 mg tablet TAKE 1 TABLET BY MOUTH ONCE DAILY IN THE MORNING compl eted vilazodone hydrochloride 10 MG Oral Tablet [Viibryd] LES ([facility]) 24 HR Bupropion Hydrochloride 150 MG Ext ended Release Oral Tablet bupropion HCl XL 150 mg 24 hr tablet, extended release TAKE 1 TABLET BY MOUTH ONCE DAILY IN THE MORNING bupropion HCl XL 150 mg 24 hr tablet, ex tended release TAKE 1 TABLET BY MOUTH ONCE DAILY IN THE MORNING co mpleted 24 HR bupropion hydrochloride 150 MG Extended Release Oral Tablet L[facility] ([facility]) 24 HR Bupropion Hydrochloride 150 MG Ext ended Release Oral Tablet bupropion HCl XL 150 mg 24 hr tablet, extended release TAKE 1 TABLET BY MOUTH ONCE DAILY IN THE MORNING bupropion HCl XL 150 mg 24 hr tablet, ex tended release TAKE 1 TABLET BY MOUTH ONCE DAILY IN THE MORNING co mpleted 24 HR bupropion hydrochloride 150 MG Extended Release Oral Tablet [facility] ([facility]) Sertraline 50 MG Oral Tablet sertraline 50 mg tablet sertraline 50 mg tablet completed sertraline 50 MG Oral Tablet [facility] ([facility]) 24 HR Bupropion Hydrochloride 300 MG Ext ended Release Oral Tablet bupropion HCl XL 300 mg 24 hr tablet, extended release TAKE 1 TABLET BY MOUTH ONCE DAILY IN THE MORNING bupropion HCl XL 300 mg 24 hr tablet, ex tended release TAKE 1 TABLET BY MOUTH ONCE DAILY IN THE MORNING co mpleted 24 HR bupropion hydrochloride 300 MG Extended Release Oral Tablet [facility] ([facility]) vilazodone hydrochloride 10 MG Oral Tabl et [Viibryd] Viibryd 10 mg tablet TAKE 1 TABLET BY MOUTH ONCE DAILY IN THE MORNING Viibryd 10 mg tablet TAKE 1 TABLET BY MOUTH ONCE DAILY IN THE MORNING compl eted vilazodone hydrochloride 10 MG Oral Tablet [Viibryd] LES ([facility]) Ondansetron 4 MG Disintegrating Oral Tab let ondansetron 4 mg disintegrating tablet DISSOLVE 1 TABLET IN MOUTH THREE TIMES DAILY NEEDED ondansetron 4 mg disintegrating tablet DISSOLVE 1 TABLET IN MOUTH THREE TIMES DAILY NEEDED completed ondansetron 4 MG Disintegrating Oral Tablet [facility] ([facility]) Acetaminophen 325 MG / Oxycodone Hydroch loride 5 MG Oral Tablet oxycodone- acetaminophen 5 mg-325 mg tablet oxycodone-acetaminophen 5 mg-325 mg tablet completed acetaminop he 325 MG / oxycodone hydrochloride 5 MG Oral Tablet LES ([facility]) aripiprazole 5 MG Oral Tablet aripiprazo le 5 mg tablet TAKE 1 TABLET BY MOUTH AT BEDTIME aripiprazole 5 mg tablet TAKE 1 TABLET BY MOUTH AT BEDTIME completed aripiprazole 5 MG Oral Tablet AT [facility] ([facility]) Hydroxyzine Hydrochloride 25 MG Oral Tab let hydroxyzine HCl 25 mg tablet TAKE 1 TABLET BY MOUTH TWICE DAILY hydroxyzine HCl 25 mg tablet TAKE 1 TABL ET BY MOUTH TWICE DAILY completed hy droxyzine hydrochloride 25 MG Oral Tablet [facility] ([facility]) 24 HR Bupropion Hydrochloride 300 MG Ext ended Release Oral Tablet bupropion HCl XL 300 mg 24 hr tablet, extended release TAKE 1 TABLET BY MOUTH ONCE DAILY IN THE MORNING bupropion HCl XL 300 mg 24 hr tablet, ex tended release TAKE 1 TABLET BY MOUTH ONCE DAILY IN THE MORNING co mpleted 24 HR bupropion hydrochloride 300 MG Extended Release Oral Tablet [facility] ([facility]) Ibuprofen 800 MG Oral Tablet ibuprofen 8 00 mg tablet TAKE 1 TABLET BY MOUTH EVERY 8 HOURS NEEDED FOR PAIN ibuprofen 800 mg tablet TAKE 1 TABLET BY MOUTH EVERY 8 HOURS NEEDED FOR PAIN compl eted ibuprofen 800 MG Oral Tablet LES ([facility]) Sertraline 50 MG Oral Tablet sertraline 50 mg tablet sertraline 50 mg tablet completed sertraline 50 MG Oral Tablet [facility] ([facility]) topiramate 50 MG Oral Tablet topiramate 50 mg tablet topiramate 50 mg tablet completed topiramate 50 MG Oral Tablet [facility] ([facility]) buspirone hydrochloride 10 MG Oral Tablet buspirone 10 mg tablet buspirone 10 mg tablet completed buspirone hydr ochloride 10 MG Oral Tablet LES ([facility]) 24 HR Bupropion Hydrochloride 300 MG Ext ended Release Oral Tablet bupropion HCl XL 300 mg 24 hr tablet, extended release TAKE 1 TABLET BY MOUTH ONCE DAILY IN THE MORNING bupropion HCl XL 300 mg 24 hr tablet, ex tended release TAKE 1 TABLET BY MOUTH ONCE DAILY IN THE MORNING co mpleted 24 HR bupropion hydrochloride 300 MG Extended Release Oral Tablet LES ([facility]) Prednisone 20 MG Oral Tablet prednisone 20 mg tablet TAKE 2 TABLETS BY MOUTH IN THE MORNING FOR 5 DAYS prednisone 20 mg tablet TAKE 2 TABLETS B Y MOUTH IN THE MORNING FOR 5 DAYS completed pre dnisone 20 MG Oral Tablet [facility] ([facility]) Prednisone 20 MG Oral Tablet prednisone 20 mg tablet TAKE 3 TABLETS BY MOUTH ONCE DAILY prednisone 20 mg tablet TAKE 3 TABLETS BY MOUTH ONCE DAILY completed prednisone 20 MG Oral Tablet [facility] ([facility]) aripiprazole 2 MG Oral Tablet aripiprazo le 2 mg tablet TAKE 1 TABLET BY MOUTH AT BEDTIME aripiprazole 2 mg tablet TAKE 1 TABLET BY MOUTH AT BEDTIME completed aripiprazole 2 MG Oral Tablet AT [facility]) buspirone hydrochloride 10 MG Oral Tablet buspirone 10 mg tablet buspirone 10 mg tablet completed buspirone hydr ochloride 10 MG Oral Tablet [facility] ([facility]) 24 HR Bupropion Hydrochloride 150 MG Ext ended Release Oral Tablet bupropion HCl XL 150 mg 24 hr tablet, extended release TAKE 1 TABLET BY MOUTH ONCE DAILY IN THE MORNING bupropion HCl XL 150 mg 24 hr tablet, ex tended release TAKE 1 TABLET BY MOUTH ONCE DAILY IN THE MORNING co mpleted 24 HR bupropion hydrochloride 150 MG Extended Release Oral Tablet [facility] ([facility]) aripiprazole 2 MG Oral Tablet aripiprazo le 2 mg tablet TAKE 1 TABLET BY MOUTH AT BEDTIME aripiprazole 2 mg tablet TAKE 1 TABLET BY MOUTH AT BEDTIME completed aripiprazole 2 MG Oral Tablet AT [facility] ([facility]) Amphetamine aspartate 5 MG / Amphetamine Sulfate 5 MG / Dextroamphetamine saccharate 5 MG / Dextroamphetamine Sulfate 5 MG Oral Tablet dextroamphetamine- amphetamine 20 mg tablet dextroamphetamine-amphetamine 20 mg tablet completed amphetamine aspartat e 5 MG / amphetamine sulfate 5 MG / dextroamphetamine saccharate 5 MG / dextroamphetamine sulfate 5 MG Oral Tablet [facility] ([facility]) 24 HR Bupropion Hydrochloride 150 MG Ext ended Release Oral Tablet bupropion HCl XL 150 mg 24 hr tablet, extended release TAKE 1 TABLET BY MOUTH ONCE DAILY IN THE MORNING bupropion HCl XL 150 mg 24 hr tablet, ex tended release TAKE 1 TABLET BY MOUTH ONCE DAILY IN THE MORNING co mpleted 24 HR bupropion hydrochloride 150 MG Extended Release Oral Tablet [facility] ([facility]) Acetaminophen 325 MG / Oxycodone Hydroch loride 5 MG Oral Tablet oxycodone- acetaminophen 5 mg-325 mg tablet oxycodone-acetaminophen 5 mg-325 mg tablet completed acetaminop hen 325 MG / oxycodone hydrochloride 5 MG Oral Tablet LES ([facility]) buspirone hydrochloride 10 MG Oral Tablet buspirone 10 mg tablet buspirone 10 mg tablet completed buspirone hydr ochloride 10 MG Oral Tablet [facility] ([facility]) CALCIUM PO Oral aborted Take by [facility] aripiprazole 5 MG Oral Tablet aripiprazo le 5 mg tablet TAKE 1 TABLET BY MOUTH AT BEDTIME aripiprazole 5 mg tablet TAKE 1 TABLET BY MOUTH AT BEDTIME completed aripiprazole 5 MG Oral Tablet AT [facility] ([facility]) Acetaminophen 325 MG / Oxycodone Hydroch loride 5 MG Oral Tablet oxycodone- acetaminophen 5 mg-325 mg tablet oxycodone-acetaminophen 5 mg-325 mg tablet completed acetaminop hen 325 MG / oxycodone hydrochloride 5 MG Oral Tablet LES ([facility]) Ondansetron 4 MG Disintegrating Oral Tab let ondansetron 4 mg disintegrating tablet DISSOLVE 1 TABLET IN MOUTH THREE TIMES DAILY NEEDED ondansetron 4 mg disintegrating tablet DISSOLVE 1 TABLET IN MOUTH THREE TIMES DAILY NEEDED completed ondansetron 4 MG Disintegrating Oral Tablet LES ([facility]) Ondansetron 4 MG Disintegrating Oral Tab let ondansetron 4 mg disintegrating tablet DISSOLVE 1 TABLET IN MOUTH THREE TIMES DAILY NEEDED ondansetron 4 mg disintegrating tablet DISSOLVE 1 TABLET IN MOUTH THREE TIMES DAILY NEEDED completed ondansetron 4 MG Disintegrating Oral Tablet LES ([facility]) Amoxicillin 500 MG Oral Capsule amoxicil wilbert 500 mg capsule TAKE 1 CAPSULE BY MOUTH EVERY 12 HOURS FOR 10 DAYS amoxicillin 500 mg capsule TAKE 1 CAPSUL E BY MOUTH EVERY 12 HOURS FOR 10 DAYS compl eted amoxicillin 500 MG Oral Capsule LES ([facility]) vilazodone hydrochloride 10 MG Oral Tabl et [Viibryd] Viibryd 10 mg tablet TAKE 1 TABLET BY MOUTH ONCE DAILY IN THE MORNING Viibryd 10 mg tablet TAKE 1 TABLET BY MOUTH ONCE DAILY IN THE MORNING compl eted vilazodone hydrochloride 10 MG Oral Tablet [Viibryd] LES ([facility]) Omeprazole 40 MG Delayed Release Oral Ca psule omeprazole 40 mg capsule,delayed release TAKE 1 CAPSULE BY MOUTH ONCE DAILY omeprazole 40 mg capsule,delayed release TAKE 1 CAPSULE BY MOUTH ONCE DAILY completed omeprazole 40 MG Delayed Release Oral Capsule LES ([facility]) topiramate 50 MG Oral Tablet topiramate 50 mg tablet topiramate 50 mg tablet completed topiramate 50 MG Oral Tablet LES ([facility]) Ibuprofen 800 MG Oral Tablet ibuprofen 8 00 mg tablet TAKE 1 TABLET BY MOUTH EVERY 8 HOURS NEEDED FOR PAIN ibuprofen 800 mg tablet TAKE 1 TABLET BY MOUTH EVERY 8 HOURS NEEDED FOR PAIN compl eted ibuprofen 800 MG Oral Tablet LES ([facility]) Omeprazole 40 MG Delayed Release Oral Ca psule omeprazole 40 mg capsule,delayed release TAKE 1 CAPSULE BY MOUTH ONCE DAILY omeprazole 40 mg capsule,delayed release TAKE 1 CAPSULE BY MOUTH ONCE DAILY completed omeprazole 40 MG Delayed Release Oral Capsule LES ([facility]) 24 HR Bupropion Hydrochloride 300 MG Ext ended Release Oral Tablet bupropion HCl XL 300 mg 24 hr tablet, extended release TAKE 1 TABLET BY MOUTH ONCE DAILY IN THE MORNING bupropion HCl XL 300 mg 24 hr tablet, ex tended release TAKE 1 TABLET BY MOUTH ONCE DAILY IN THE MORNING co mpleted 24 HR bupropion hydrochloride 300 MG Extended Release Oral Tablet [facility] ([facility]) Ondansetron 4 MG Disintegrating Oral Tab let ondansetron 4 mg disintegrating tablet DISSOLVE 1 TABLET IN MOUTH THREE TIMES DAILY NEEDED ondansetron 4 mg disintegrating tablet DISSOLVE 1 TABLET IN MOUTH THREE TIMES DAILY NEEDED completed ondansetron 4 MG Disintegrating Oral Tablet LES ([facility]) buspirone hydrochloride 10 MG Oral Tablet buspirone 10 mg tablet buspirone 10 mg tablet completed buspirone hydr ochloride 10 MG Oral Tablet LES ([facility]) Oxycodone Hydrochloride 5 MG Oral Tablet oxycodone 5 mg tablet TAKE 1 TABLET BY MOUTH EVERY 6 HOURS NEEDED FOR PAIN . DO NOT EXCEED 4 PER 24 HOURS oxycodone 5 mg tablet TAKE 1 TABLET BY MOUTH EVERY 6 HOURS NEEDED FOR PAIN . DO NOT EXCEED 4 PER 24 HOURS completed oxycodone hydrochloride 5 MG Oral Tablet LES ([facility]) Acetaminophen 325 MG / Oxycodone Hydroch loride 5 MG Oral Tablet oxycodone- acetaminophen 5 mg-325 mg tablet oxycodone-acetaminophen 5 mg-325 mg tablet completed acetaminop hen 325 MG / oxycodone hydrochloride 5 MG Oral Tablet LES ([facility]) Oxycodone Hydrochloride 5 MG Oral Tablet oxycodone 5 mg tablet TAKE 1 TABLET BY MOUTH EVERY 6 HOURS NEEDED FOR PAIN . DO NOT EXCEED 4 PER 24 HOURS oxycodone 5 mg tablet TAKE 1 TABLET BY MOUTH EVERY 6 HOURS NEEDED FOR PAIN . DO NOT EXCEED 4 PER 24 HOURS completed oxycodone hydrochloride 5 MG Oral Tablet LES ([facility]) Omeprazole 40 MG Delayed Release Oral Ca psule omeprazole 40 mg capsule,delayed release TAKE 1 CAPSULE BY MOUTH ONCE DAILY omeprazole 40 mg capsule,delayed release TAKE 1 CAPSULE BY MOUTH ONCE DAILY completed omeprazole 40 MG Delayed Release Oral Capsule [facility] ([facility]) Ibuprofen 800 MG Oral Tablet ibuprofen 8 00 mg tablet TAKE 1 TABLET BY MOUTH EVERY 8 HOURS NEEDED FOR PAIN ibuprofen 800 mg tablet TAKE 1 TABLET BY MOUTH EVERY 8 HOURS NEEDED FOR PAIN compl eted ibuprofen 800 MG Oral Tablet LES ([facility]) Sertraline 50 MG Oral Tablet sertraline 50 mg tablet sertraline 50 mg tablet completed sertraline 50 MG Oral Tablet [facility]) Prednisone 20 MG Oral Tablet prednisone 20 mg tablet TAKE 3 TABLETS BY MOUTH ONCE DAILY prednisone 20 mg tablet TAKE 3 TABLETS BY MOUTH ONCE DAILY completed prednisone 20 MG Oral Tablet [facility] ([facility]) aripiprazole 2 MG Oral Tablet aripiprazo le 2 mg tablet TAKE 1 TABLET BY MOUTH AT BEDTIME aripiprazole 2 mg tablet TAKE 1 TABLET BY MOUTH AT BEDTIME completed aripiprazole 2 MG Oral Tablet AT [facility]) aripiprazole 5 MG Oral Tablet aripiprazo le 5 mg tablet TAKE 1 TABLET BY MOUTH AT BEDTIME aripiprazole 5 mg tablet TAKE 1 TABLET BY MOUTH AT BEDTIME completed aripiprazole 5 MG Oral Tablet AT [facility]) liothyronine sodium 0.005 MG Oral Tablet [Cytomel] Cyt omel 5 mcg tablet Cytomel 5 mcg tablet 1.00 {tablet} ORAL completed liothyronine sodium 0.005 MG Oral Tablet [Cytomel] Next[facility] ([facility]) 24 HR Bupropion Hydrochloride 300 MG Ext ended Release Oral Tablet bupropion HCl XL 300 mg 24 hr tablet, extended release TAKE 1 TABLET BY MOUTH ONCE DAILY IN THE MORNING bupropion HCl XL 300 mg 24 hr tablet, ex tended release TAKE 1 TABLET BY MOUTH ONCE DAILY IN THE MORNING co mpleted 24 HR bupropion hydrochloride 300 MG Extended Release Oral Tablet [facility] ([facility]) aripiprazole 2 MG Oral Tablet aripiprazo le 2 mg tablet TAKE 1 TABLET BY MOUTH AT BEDTIME aripiprazole 2 mg tablet TAKE 1 TABLET BY MOUTH AT BEDTIME completed aripiprazole 2 MG Oral Tablet AT [facility]) 24 HR Bupropion Hydrochloride 150 MG Ext ended Release Oral Tablet [Wellbutrin] Wellbutrin XL 150 mg 24 hr tablet, extended release Wellbutrin XL 150 mg 24 hr tablet, extended release completed 24 HR bupropion hydrochloride 150 MG Extended Release Oral Tablet [Wellbutrin] [facility] Amoxicillin 500 MG Oral Capsule amoxicil wilbert 500 mg capsule TAKE 2 CAPSULES BY MOUTH ONCE DAILY amoxicillin 500 mg capsule TAKE 2 CAPSULES BY MOUTH ON CE DAILY completed amoxicillin 50 0 MG Oral Capsule [facility]) vilazodone hydrochloride 10 MG Oral Tabl et [Viibryd] Viibryd 10 mg tablet TAKE 1 TABLET BY MOUTH ONCE DAILY IN THE MORNING Viibryd 10 mg tablet TAKE 1 TABLET BY MOUTH ONCE DAILY IN THE MORNING compl eted vilazodone hydrochloride 10 MG Oral Tablet [Viibryd] [facility]) Amoxicillin 500 MG Oral Capsule amoxicil wilbert 500 mg capsule TAKE 2 CAPSULES BY MOUTH ONCE DAILY amoxicillin 500 mg capsule TAKE 2 CAPSULES BY MOUTH ON CE DAILY completed amoxicillin 50 0 MG Oral Capsule [facility] ([facility]) Ondansetron 4 MG Disintegrating Oral Tab let ondansetron 4 mg disintegrating tablet DISSOLVE 1 TABLET IN MOUTH THREE TIMES DAILY NEEDED ondansetron 4 mg disintegrating tablet DISSOLVE 1 TABLET IN MOUTH THREE TIMES DAILY NEEDED completed ondansetron 4 MG Disintegrating Oral Tablet [facility] ([facility]) aripiprazole 5 MG Oral Tablet aripiprazo le 5 mg tablet TAKE 1 TABLET BY MOUTH AT BEDTIME aripiprazole 5 mg tablet TAKE 1 TABLET BY MOUTH AT BEDTIME completed aripiprazole 5 MG Oral Tablet AT [facility]) aripiprazole 2 MG Oral Tablet aripiprazo le 2 mg tablet TAKE 1 TABLET BY MOUTH AT BEDTIME aripiprazole 2 mg tablet TAKE 1 TABLET BY MOUTH AT BEDTIME completed aripiprazole 2 MG Oral Tablet AT [facility] ([facility]) Insurance Providers Payer name Policy type / Coverage type Policy ID Covered green party ID Covered green party's relationship to sherman Policy Sherman Plan Information [facility] [place] [id number] Child [id number] [facility] [id number] SP [id number] [facility] [id number] SP [id number] [facility] U [id number] Self [id number] [facility] [id number] SP [id number] Medicaid S [id number] S [id number] Managed Care - [facility] Community Plan P [id number] S [id number] [facility] I [id number] Self [id number] [facility] I [id number] Self [id number] [facility] MMC [id number] self [id number] ANSI-Medicaid [id number] ANSI-Medicaid [id number] ANSI-Medicaid 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 [facility] ( [facility]) red cell distribution width 12.1 % 11.5-14.5 Red Cell Distribution Width [facility] ([facility]) platelet count, automated 303 10 150-450 Platelet C ount, Automated [facility] ([facility]) lymph % 19.9 % 24.0-44.0 Below low normal Lymph % [facility] ( [facility]) mono % 6.0 % 2.0-8.0 [place] % [facility] ([facility]) eos % 15.0 % 0.0-3.0 Above high normal Eos % [facility] ([facility]) baso % 0.7 % 0.0-1.0 Baso % [facility] ([facility]) immature granulocyte % 0.4 % 0-3.0 Immature Gran ulocyte % [facility] ([facility]) neutrophils # 6.2 10 1.5-8.5 Neutrophils # [facility] ( [facility]) nucleated red blood cell % 0.0 % 0-0 Nucleated Red Blood Cell % [facility] ([facility]) lymph # 2.1 10 1.5-5.0 Lymph # [facility] ([facility]) mono # 0.6 10 0.0-0.8 [place] # [facility] ([facility]) eos # 1.6 10 0.0-0.5 Above high normal Eos # [facility] ([facility]) baso # 0.1 10 0.0-0.2 Baso # [facility] ([facility]) ID Date Data Source [id number] 07/02/2020 10:18:00 PM EDT [place] ([facility]) Name Value Range Interpretation Code Description Data Shari rce(s) Supporting Document(s) ebv viral capsid Ag IgM <36.0 0.0-35.9 Ebv Viral Ca psid Ag IgM [facility] ([facility]) ebv Ab to nuclear antigen 433.0 U/mL 0.0-17.9 Above high norm al Ebv Ab to Nuclear Antigen [facility] ([facility]) ebv viral capsid Ag IgG >600.0 0.0-17.9 Above high normal Ebv Viral Capsid Ag IgG [facility] ([facility]) ebv interpretation . Ebv Interpretatio n [facility] ([facility]) ID Date Data Source [id number] 07/02/2020 10:18:00 PM EDT [facility] ([facility]) Name Value Range Interpretation Code Description Data Shari rce(s) Supporting Document(s) mono reflex ebv comp negative negative [place] Reflex Ebv Comp [facility] ([facility]) ID Date Data Source [id number] 07/02/2020 10:18:00 PM EDT [facility] ([facility]) Name Value Range Interpretation Code Description Data Shari rce(s) Supporting Document(s) influenza A amplification negative negative Influenza a Amplification [facility] ([facility]) influenza B amplification negative negative Influenza B Amplification [facility] ([facility]) RSV amplification negative negative RSV Amplification [facility] ([facility]) sars covid-19 amplification negative negative Sars Cov id-19 Amplification [facility]) ID Date Data Source [id number] 07/02/2020 10:18:00 PM EDT [place] ([facility]) Name Value Range Interpretation Code Description Data Shari rce(s) Supporting Document(s) red blood count 4.42 10 4.00-5.40 Red Blood Count [facility] ([facility]) white blood count 10.7 10 4.0-10.0 Above high normal White Blood Count [facility] ([facility]) hematocrit 40.0 % 36.0-47.0 Hematocrit [facility] ([facility]) hemoglobin 13.7 g/dL 12.0-15.5 Hemoglobin [facility] ([facility]) mean corpuscular volume 90.5 fL 80.0-96.0 Mean Corpusc ular Volume [facility] ([facility]) mean corpuscular hemoglobin 31.0 pg 27.0-33.0 Mean Cor puscular Hemoglobin [facility] ([facility]) red cell distribution width 12.1 % 11.5-14.5 Red Cell Distribution Width [facility] ([facility]) mean corpuscular HGB conc 34.3 g/dL 32.0-36.5 Mean Corpu scular HGB Conc [facility] ([facility]) platelet count, automated 303 10 150-450 Platelet C ount, Automated [place] ([facility]) neutrophils % 58.0 % 36.0-66.0 Neutrophils % [facility] ( [facility]) mono % 6.0 % 2.0-8.0 [place] % [facility] ([facility]) lymph % 19.9 % 24.0-44.0 Below low normal Lymph % [facility] ( [facility]) eos % 15.0 % 0.0-3.0 Above high normal Eos % [facility] ([facility]) baso % 0.7 % 0.0-1.0 Baso % [facility] ([facility]) immature granulocyte % 0.4 % 0-3.0 Immature Gran ulocyte % [facility] ([facility]) nucleated red blood cell % 0.0 % 0-0 Nucleated Red Blood Cell % [facility] ([facility]) neutrophils # 6.2 10 1.5-8.5 Neutrophils # [facility] ( [facility]) lymph # 2.1 10 1.5-5.0 Lymph # [facility] ([facility]) mono # 0.6 10 0.0-0.8 [place] # [facility] ([facility]) eos # 1.6 10 0.0-0.5 Above high normal Eos # [facility] ([facility]) baso # 0.1 10 0.0-0.2 Baso # [facility] ([facility]) ID Date Data Source [id number] 07/02/2020 10:18:00 PM EDT [place] ([facility]) Name Value Range Interpretation Code Description Data Shari rce(s) Supporting Document(s) ebv viral capsid Ag IgM <36.0 0.0-35.9 Ebv Viral Ca psid Ag IgM [facility] ([facility]) ebv viral capsid Ag IgG >600.0 0.0-17.9 Above high normal Ebv Viral Capsid Ag IgG [facility] ([facility]) ebv interpretation . Ebv Interpretatio n [facility] ([facility]) ebv Ab to nuclear antigen 433.0 U/mL 0.0-17.9 Above high norm al Ebv Ab to Nuclear Antigen [facility] ([facility]) ID Date Data Source [id number] 07/02/2020 10:18:00 PM EDT [facility]) Name Value Range Interpretation Code Description Data Shari rce(s) Supporting Document(s) mono reflex ebv comp negative negative [place] Reflex Ebv Comp [facility]) ID Date Data Source [id number] 07/02/2020 10:18:00 PM EDT [facility]) Name Value Range Interpretation Code Description Data Shari rce(s) Supporting Document(s) influenza A amplification negative negative Influenza a Amplification [facility] ([facility]) influenza B amplification negative negative Influenza B Amplification [facility] ([facility]) RSV amplification negative negative RSV Amplification [facility] ([facility]) sars covid-19 amplification negative negative Sars Cov id-19 Amplification [facility]) ID Date Data Source [id number] 07/02/2020 10:18:00 PM EDT [facility] ([facility]) Name Value Range Interpretation Code Description Data Shari rce(s) Supporting Document(s) white blood count 10.7 10 4.0-10.0 Above high normal White Blood Count [facility] ([facility]) hemoglobin 13.7 g/dL 12.0-15.5 Hemoglobin [facility] ([facility]) mean corpuscular volume 90.5 fL 80.0-96.0 Mean Corpusc ular Volume [facility] ([facility]) red blood count 4.42 10 4.00-5.40 Red Blood Count [facility] ([facility]) hematocrit 40.0 % 36.0-47.0 Hematocrit [facility] ([facility]) platelet count, automated 303 10 150-450 Platelet C ount, Automated [facility] ([facility]) mean corpuscular HGB conc 34.3 g/dL 32.0-36.5 Mean Corpu scular HGB Conc [facility] ([facility]) red cell distribution width 12.1 % 11.5-14.5 Red Cell Distribution Width [facility] ([facility]) mean corpuscular hemoglobin 31.0 pg 27.0-33.0 Mean Cor puscular Hemoglobin [facility] ([facility]) lymph % 19.9 % 24.0-44.0 Below low normal Lymph % [facility] ( [facility]) neutrophils % 58.0 % 36.0-66.0 Neutrophils % [facility] ( [facility]) mono % 6.0 % 2.0-8.0 [place] % [facility] ([facility]) eos % 15.0 % 0.0-3.0 Above high normal Eos % [facility] ([facility]) neutrophils # 6.2 10 1.5-8.5 Neutrophils # [facility] ( [facility]) immature granulocyte % 0.4 % 0-3.0 Immature Gran ulocyte % [facility] ([facility]) nucleated red blood cell % 0.0 % 0-0 Nucleated Red Blood Cell % [facility] ([facility]) baso % 0.7 % 0.0-1.0 Baso % [facility] ([facility]) baso # 0.1 10 0.0-0.2 Baso # [facility] ([facility]) lymph # 2.1 10 1.5-5.0 Lymph # [facility] ([facility]) mono # 0.6 10 0.0-0.8 [place] # [facility] ([facility]) eos # 1.6 10 0.0-0.5 Above high normal Eos # [facility] ([facility]) ID Date Data Source [id number] 07/02/2020 10:18:00 PM EDT [facility] Name Value Range Interpretation Code Description Data Shari rce(s) Supporting Document(s) SARS coronavirus 2 RNA [Presence] in Res piratory specimen by FREIDA with probe detection NEGATIVE [facility] This lab was ordered by [facility] a nd reported by [facility]. ID Date Data Source [id number] 03/07/2020 10:30:00 AM EST [facility] Name Value Range Interpretation Code Description Data Shari rce(s) Supporting Document(s) SARS coronavirus 2 RNA [facility] This lab was ordered by [facility] and reported by [facility]. ID Date Data Source [id number] 03/07/2020 12:00:00 AM EST [facility] Name Value Range Interpretation Code Description Data Shari rce(s) Supporting Document(s) SARS coronavirus 2 Ag [facility] This lab was ordered by [facility] and reported by [facility]. ID Date Data Source [id number] 02/25/2020 12:00:00 AM EST [facility] Name Value Range Interpretation Code Description Data Shari rce(s) Supporting Document(s) [facility]2 [facility] was ordered by [facility] and reported by [facility]. ID Date Data Source [id number] 02/24/2020 01:53:00 PM EST [facility] Name Value Range Interpretation Code Description Data Shari rce(s) Supporting Document(s) SARS coronavirus 2 RNA [facility] This lab was ordered by [facility] and reported by [facility]. ID Date Data Source [id number] 01/25/2020 08:07:54 AM EST [facility] Name Value Range Interpretation Code Description Data Shari rce(s) Supporting Document(s) MAGNESIUM 2.1 mg/dL (1.7-2.4) [facility] ID Date Data Source [id number] 01/25/2020 08:07:54 AM EST [facility] Name Value Range Interpretation Code Description Data Shari rce(s) Supporting Document(s) SODIUM 140 mmol/L (136-145) [facility] POTASSIUM 3.9 mmol/L (3.6-5.2) [facility] CHLORIDE 109 mmol/L (100-108) H [facility] CO2 23 mmol/L (22-31) [facility] ANION GAP 8 mmol/L (7-16) [facility] UREA NITROGEN 7 mg/dL (7-24) [facility] CREATININE 0.79 mg/dL (0.60-1.00) [facility] BUN/CREAT RATIO 8.9 RATIO (10.0-20.0) L [facility] GLUCOSE 92 mg/dL (70-99) [facility] CALCIUM 8.7 mg/dL (8.4-10.2) [facility] GFR >60 ml/min/1.73m2 (>59) [facility] GFR ( AMER) >60 ml/min/1.73m2 (>59) [facility] GFR INTERPRETATION [facility] --NORMAL KIDNEY FUNCTION OR MILD DISEASE - GFR >OR= 60CHRONIC KIDNEY DISEASE - GFR 15 - 59RENAL FAILURE - GFR <15 Est. GFR calculation based on the MDRDstudy equation, which assumes a steadystate for creatinine. Est. GFR should notbe used for medication dosing. ID Date Data Source [id number] 01/25/2020 07:33:51 AM EST [facility] Name Value Range Interpretation Code Description Data Shari rce(s) Supporting Document(s) WBC 10.4 10*3/uL (4.1-11.0) [facility] RBC 4.19 10*6/uL (4.00-5.40) [facility] HGB 13.4 g/dL (12.0-16.0) [facility] HCT 39.0 % (36.0-47.0) [facility] MCV 93.2 fL (80.0-95.0) [facility] MCH 32.1 pg (27.0-32.0) H [facility] MCHC 34.4 g/dL (32.0-36.0) [facility] RDW 13.3 % (10.5-14.5) [facility] PLT 311 10*3/uL (150-450) [facility] MPV 9.1 fL (7.1-10.7) [facility] ID Date Data Source [id number] 01/25/2020 06:04:47 PM EST [place], [place] [address]Tel# SURGICAL PATHOLOGY REPORTPatient Name:LOLA MERCADOB:1985Received:01/24/2020Accession #:[id number](s) Received: A: Portion of stomachClinical Diagnosis and History: Morbid obesity.DIAGNOSIS:PORTION OF STOMACH, EXCISION - STOMACH WITH NO SIGNIFICANT HISTOPATHOLOGIC FINDINGS; ONE CONGESTED LYMPH NODE (0/1). GROSS DESCRIPTION: Specimen received in formalin labeled "portion of stomach" is a portionof stomach measuring 17 cm along the greater curvature and ranging from2.5 cm to 4 cm in diameter. Opposite the greater curvature the margin isstapled. There is minimal attached yellow lobulated adipose tissue withthree possible lymph nodes ranging 0.2 cm to 0.7 cm in greatest dimension. The remaining outer surface is pink to hernadez with loosely adherent bloodclot. The contents consist of thin, hemorrhagic material. The mucosa isglistening, hughes- pink to hughes-red with normal rugae folds. No lesions arefound. The wall is intact, hughes-hernadez and averages 0.1 cm in thickness. Logistics Management Specialist sections are submitted for microscopic examination asfollows: 1 - three whole probable nodes; 2 - agricultural sales representative of margin; 3- random mucosa. (3 blocks) jzwkas/mecReported: 01/25/2020Electronically Signed Out By John Bonner MD [facility] [place] [id number] component performed at [facility], Histopathology, [address] [place] [address], [id number].Reported at [facility], [address] [place] [address], [phone].This report may include immunohistochemical or in-situ hybridizationresults. Testing was developed and the performance characteristicsdetermined [facility], as required byCLIA '88. The FDA has determined that approval for specific use is notnecessary for clinical use. The quality of Hematoxylin and Eosin stainsand as applicable, for all immunohistochemical and/or special stains,including positive and negative controls, were reviewed and consideredappropriate.ICD codes: E66.01CPT4 codes: A: 44105V Name Value Range Interpretation Code Description Data Shari rce(s) Supporting Document(s) ID Date Data Source [id number] 01/24/2020 09:33:00 AM EST [facility] [id number] [place], [place] [address]EBIZDNA NAME: SOPHIA MERCADODATE OF : 1985REPORT: OPERATIONPATIENT NUMBER: [id number] STATUS: IPMEDICAL RECORD NUMBER: [id number] OF ADMISSION: 01/24/2020DATE OF DISCHARGE:ROOM: 01DATE OF PROCEDURE: 01/24/2020PREOPERATIVE DIAGNOSIS: Morbid obesity.POSTOPERATIVE DIAGNOSIS: Morbid obesity.OPERATION PERFORMED: Robotic-assisted laparoscopic sleeve gastrectomy.SURGEON: Brenden Henderson DOASSISTANT: BATSHEVA Renner; DONAVAN FountainTHESIA: General.ESTIMATED BLOOD LOSS: Minimal.COMPLICATIONS: None.SPECIMENS: Stomach.CONDITION: Stable.INDICATIONS: Sophia is a 34-year-old female with morbid obesity. Aftercompleting our bariatric program, she presents today for sleevegastrectomy. We discussed the risks and benefits at length including butnot limited to bleeding, infection, leak of a staple line, risk of an openprocedure. She understood this and wished to proceed.PROCEDURE: After consent was obtained, patient was taken to the operatingroom and transferred supine. SCDs were on and running. She was inducedunder general anesthesia without difficulty. An OG tube was passed. Herabdomen was prepped and draped in sterile fashion. I anesthetized to theleft of her umbilicus, made a small incision, inserted a Veress needle andcreated pneumoperitoneum to 15 mmHg without difficulty. With this done weremoved the Veress needle and inserted a trocar without difficulties. Withthe camera inserted we placed a block in a standard fashion at the threeinjection sites on both sides. With the block in place we placed a 12 andan 8 in the right side and an 8 in the left side all in a straight line.Patient was then positioned in steep reverse Trendelenburg.Through a subxiphoid stab incision the Shine was inserted and the leftlobe of the liver was retracted without difficulties. The stomach wasvisualized, it was decompressed, we had Anesthesia remove the OG tube. Ientered the console and turned my attention to the stomach. I identifiedthe pylorus and came back 5 cm proximal to this on the greater curve. Usingthe vessel sealer I took all the vessels off the greater curvature up toand including the short gastrics. The stomach was widely mobilized to theleft beryl with good hemostasis. With this completed I had Anesthesia pass a34 Turkish bougie down the lesser curve towards the pylorus. With the bougiein place I selected a SureForm 60 stapler with a green load for my firstfiring. I then switched to blue loads of the SureForm 60 and marched alongthe edge of the bougie making sure it moved easily at all times until asleeve was formed all the way to the top. With the sleeve formed I hadAnesthesia remove the bougie without difficulties. The staple line wasinspected and found to be intact and hemostatic. At this point we wentahead and inserted an Endobag. The stomach was placed into an Endobag. Thiswas pulled up to the skin level and we reached inside the bag, pulled outthe stomach specimen then the bag and passed it off. At this point in timewe removed all the trocars, saw no bleeding, and desufflated thepneumoperitoneum completely. The skin incisions were then closed withMonocryl and glue. She was then awoke from anesthesia and sent to recoveryin stable condition. I was present and scrubbed and performed the entireprocedure. All counts were correct at the end.DICTATED BY: Brenden Henderson, DODictated: 01/24/2020 8:38DT: 01/24/2020 9:09Job #: [id number]:NOTE: [facility] computer generated reports are not confirmed orauthenticated unless they are signed by the providerElectronically Authenticated by:BRENDEN HENDERSON DO On 01/24/2020 09:33 AM EST Name Value Range Interpretation Code Description Data Shari rce(s) Supporting Document(s) ID Date Data Source [id number] 01/19/2020 12:00:00 AM EST [facility] Name Value Range Interpretation Code Description Data Shari rce(s) Supporting Document(s) SARS coronavirus 2 RNA [Presence] in Res piratory specimen by FREIDA with probe detection [facility] This lab was ordered by Rishabh Rodriguez and reported by [facility]. ID Date Data Source [id number] 01/19/2020 12:23:13 AM EST [facility] [place] [facility] SPEC EXP DATE 01/27/2020PATI ENT ABO/Rh O POSITIVEANTIBODY SCREEN NEGATIVETESTING SITE PERFORMED AT [address] [place] [address] BANK COMMENT BLOOD TYPE CONFIRMED. Name Value Range Interpretation Code Description Data Shari rce(s) Supporting Document(s) ID Date Data Source [id number] 01/18/2020 05:10:00 PM EST [facility] ([facility]) Name Value Range Interpretation Code Description Data Shari rce(s) Supporting Document(s) Miscellaneous Laboratory test result [facility] ([facility]) Type and screen Choriogonadotropin.beta subunit ( test) [Pres ence] in Serum or Plasma Laboratory test result [facility] ([facility]) Reference Range Males and Non- females: Negative females: Positive Blood type and Indirect antibody screen panel - Blood Laboratory test result [facility] ([facility]) Type and screen ID Date Data Source [id number] 01/18/2020 05:10:00 PM EST [facility] ([facility]) Name Value Range Interpretation Code Description Data Shari rce(s) Supporting Document(s) Urea nitrogen [Moles/volume] in Serum or Plasma 22 mg/dL 6-20 Above high normal [facility] ([facility]) Glucose [Mass/volume] in Serum or Plasma 85 mg/dL 74-106 [facility] ([facility]) [employer] (ADA) Recommended Range is 65-99 mg/dL Sodium [Moles/volume] in Serum or Plasma 138 mmol/L 136-145 [facility] ([facility]) Potassium [Moles/volume] in Serum or Plasma 4.1 mmol/L 3.5-5.3 [facility] ([facility]) Creatinine [Mass/volume] in Serum or Plasma 0.8 mg/dL 0.5-1.3 [facility] ([facility]) Carbon dioxide, total [Moles/volume] in Serum or Plasma 24 meq/L 20 -31 [facility] ([facility]) Anion Gap 10 mmol/L 7-16 [facility]) Chloride [Moles/volume] in Serum or Plasma 104 mmol/L 98-107 [facility] ([facility]) eGFR-Aa female 101 mL/m/1.73m [facility] ([facility]) <content>Normal Kidney Function or Mild Disease GFR >59 mL/min/1.73m2</content>
<content>Chronic Kidney Disease GFR 15-59 mL/min/1.73m2</content>
<content>Renal Failure GFR <15 mL/min/1.73m2</content>
<content></content> eGFR-female 83 mL/m/1.73m [facility] ([facility]) Calcium [Mass/volume] in Serum or Plasma 10.0 mg/dL 8.9-10.5 [facility] ([facility]) ID Date Data Source [id number] 01/18/2020 05:10:00 PM EST [facility] ([facility]) Name Value Range Interpretation Code Description Data Shari rce(s) Supporting Document(s) Erythrocytes [#/volume] in Blood by Automated count 4.44 x10E6/uL 3.9 -5.4 [facility] ([facility]) WBC. 10.68 x10E3/uL 4.2-12.0 [facility] ([facility]) Hematocrit [Volume Fraction] of Blood by Automated count 41.5 % 3 6-47 [facility] ([facility]) Hemoglobin [Mass/volume] in Blood 13.9 g/dL 12.0-16.0 [facility] ([facility]) MCHC 33.6 g/dL 32-36 [facility] ([facility]) MCV 93.3 fL 80-98 [facility] ([facility]) MCH 31.4 pg 27-33 [facility]) Platelets [#/volume] in Blood by Automated count 347 x10E3/uL 135-420 [facility] ([facility]) RDW 13.9 % 11.2-15.2 [facility]) MPV 7.7 fL 7.0-12.3 [facility] ([facility]) %Marinette 3.8 % 2.0-13.0 [facility] ([facility]) % Reji 57.9 % 41.0-80.0 [facility] ([facility]) %Lym 27.9 % 10.0-45.2 [facility] ([facility]) Neut 6.2 x10E3/uL 2.0-8.1 [facility]) %Baso 0.6 % 0.0-3.0 [facility] ([facility]) %Eos 9.9 % 0.0-8.0 Above high normal [facility] ([facility]) Eos 1.1 x10E3/uL 0.0-0.6 Above high normal [facility]) Marinette 0.4 x10E3/uL 0.0-1.0 [facility] ([facility]) Lymp 3.0 x10E3/uL 0.6-3.1 [facility] ([facility]) Baso 0.1 x10E3/uL 0.0-0.2 [facility]) ID Date Data Source [id number] 12/09/2019 11:17:[address] [facility] Name Value Range Interpretation Code Description Data Shari rce(s) Supporting Document(s) Progress Note [facility] FNABKc6cLyENIaWq62/CGCssCPFmx8TjYWbcQVl9NIlnNBOsO9MeCUS7pE0kWME0YPmUDlXqZgEqAPRa lbm [file] AgICAgICAgICAgICAgICAgICAgICAgICAgICAgICAgICAgICAgICAgICAgICAgICAgICAgICAgICAgIC AgICAgICAgICAgDQogICAgICAgICAgICAgICAgICAg ICAgICAgICAgICAgICAgICAgICAgICAgICAgICAgICAgICAgICAgICAgICAgICAgICAgICAgICAgICAg ICAgICAgICAgICAgICAgICAgICAgDQogICAgICAgICAgICAgICAgICAgICAgICAgICAgICAgICAgICAg ICAgICAgICAgICAgICAgICAgICAgICAgICAgICAgIC AgICAgICAgICAgICAgICAgICAgICAgICAgICAgICAgDQogICAgICAgICAgICAgICAgICAgICAgICAgIC AgICAgICAgICAgICAgICAgICAgICAgICAgICAgICAgICAgICAgICAgICAgICAgICAgICAgICAgICAgIC AgICAgICAgICAgICAgDQogICAgICAgICAgICAgICAg ICAgICAgICAgICAgICAgICAgICAgICAgICAgICAgICAgICAgICAgICAgICAgICAgICAgICAgICAgICAg ICAgICAgICAgICAgICAgICAgICAgICAgDQogICAgICAgICAgICAgICAgICAgICAgICAgICAgICAgICAg ICAgICAgICAgICAgICAgICAgICAgICAgICAgICAgIC AgICAgICAgICAgICAgICAgICAgICAgICAgICAgICAgICAgDQogICAgICAgICAgICAgICAgICAgICAgIC AgICAgICAgICAgICAgICAgICAgICAgICAgICAgICAgICAgICAgICAgICAgICAgICAgICAgICAgICAgIC AgICAgICAgICAgICAgICAgDQogICAgICAgICAgICAg ICAgICAgICAgICAgICAgICAgICAgICAgICAgICAgICAgICAgICAgICAgICAgICAgICAgICAgICAgICAg ICAgICAgICAgICAgICAgICAgICAgICAgICAgDQogICAgICAgICAgICAgICAgICAgICAgICAgICAgICAg ICAgICAgICAgICAgICAgICAgICAgICAgICAgICAgIC AgICAgICAgICAgICAgICAgICAgICAgICAgICAgICAgICAgICAgDQogICAgICAgICAgICAgICAgICAgIC AgICAgICAgICAgICAgICAgICAgICAgICAgICAgICAgICAgICAgICAgICAgICAgICAgICAgICAgICAgIC PrHYXdELBsQSTfPVMgNGWjCIKnSAk1W8moHVOqKZFe KI1dNVz4Gb4+AOjSWyKaMMB4slEklT1IFQ6ly5SlYYzuHMEqx1ChXBt0AU5XDWGbILveZV7ZEMgstv5W IUGrZENquJGDv1omOcUjMBB0OGPcFrliEU3IQJNiN2flknUmWTIwIXLKNWpoENZYGFtcRWGKSGEdIFPf ZrZqIoGkSHEsYR6MJIMoW332laVeNO2DLu1AHvBdWG 3szp5QWrCjLALnMnaLDxl4YDhePN0JwGKgcVIkIYRrPDOVDyNzB6yju0HuJvRuTNKIDKqkJN7Hv0QadQ AxDQo+Qk3NLB1sl2KcANydACFvDU9bgc6YJXzFZcSiT0RcrFuzBZCol2vnLJQzSX9reBMbOIT2TBHsvp xcwKonGTYeGNDdnHTyLBWFPIAtqLBpNX2bRrYjXoGu FLY0ZHIjQO8sVMosQZ8VAQA3QCbyHSIlXAFhH2iAYpFnIAFrSXNzzRcfZS1UZmUiZ4ZhztWqePNwCJEy IFINCj4+BJitetOjKnwSDwNgBEPtm0GiIAs8NK5ZMUWeGDtwKZ5MFPSogR1oLNcvZM4FCkGuUVNhVAOF FzEvF95gxNMoDLm7K5KxHrCrFXNcOgkaFGNyREnvWr FtZXMgWyBdDQogID4+ID4+QVenEP0NDXsffmIwFBVuIy5FDAZdHIRwGN8xSPWsSWSxT0U4fYwlVNIIBh MaH3ydqhqdUW0oNKMeZ459cRojjgJxQNPbYUCgOn9TBPXxUJN1RVVajNLvQkilUCSODBnhOZ2IzWNyWX U2zO8pKWwiSXFrKUPcP9zKUvJnmHtrPU66xInpqfEf bCBdDQo+Wd8SIK3nn2PlVGl2vzYfAKrsEJWbUIecPSWfVKHpGKGtNNZ2EBQ5BZQIGcTrTJInLKHbGBec OHNbPLCjiv0WVADbOUBsRjP3CAOcFOVeHAFjQAddGACoTVM8HVkrVRGkPOZqRO3GKpWcWQIvQNHkSDll ZPXmFZJfay2XUVYzQEOpRwb4VwBhMSHfCILpFSjuSO FgBHC1VMjfWXXnLLVzMW0WBiHrVGMsYDacFWDaCMAcNJIzql9OQAMeMRDfHYGyEXKcNACqXCVcOMpoSU GpMEDbAqv6HWOwVIDaUL8IQgApLKDmEBB2DksvPGSmQXJcux1SSRQxCJNmZINzDpZpHJPmCSIcQIinMN RrRQS2CbKlGXGiSHSeTO8IRfCvRDMwKTB3BXhmJDYb VRZhug1WPWWcFKPlFuE2COQsCYVbTVUqVOtlABFaAKD8AYW1CMGeAYOlGA6IAwFuECZaFRixCuGjXEGa ZJOcju7GHVUuTREeXJKhQDLsLQRyELMrXUfgPMBgSNU7JtQlOWIwYHOgDT7MLcHjWPMqIZw0CpEuOJGm BBFypf1ZWMVgJECwHZn8QaPsATLwDRTrMGsfSQOiTZ HmONkkEHOqPQAmOE8MLmGcCDStTcO2WAxeKTTiFAQkcq5LVQLtUDSdPBgaOnTrNRBgOURfOOtxRZPzUP FmTPL6SICdFSNqHW7OWiLkWVJlXrErCANzZUNxDILuze9RFLCcQLVpYaI1SmYrFTIgSJQiJDzvHNNsJM EgGoM5GRNhYOBaSM3GXgBvQJNlXmJ8BnJlDSLaDLOl ql5WKAGbKSMxMsc0ZCNsNQPeIYYfUIojCUUbYVQ7TpR5PDPmOFCmTC3VZiVfADIfHpItMhImMYHoWDYi vb2SLHJqLSSbPZDtZqNtIZTdYUVjTYe0pnJvsNPdVDc3FZ8WZ7IfaoXbOxQAXw6Hs191HOYwTAErUm0B S7ibEl9bDLNaHRLGTu5TQIt0HqE5FFF1IsH6OEFjHK U5Nvx5FMUzLNeiLfLmQWT4VvH+ZRnkVJmlArZgPiO2VgZfEonhRwP3P5CmF6UlRCDyEeDkES9gPBLUTi 4+AEkypMBjfAstKUUHDfK7DbbpJHrvULRXMy6E Procedure Social History Code Duration Value Status Description Data Source(s ) Smoking 08/16/2020 12:00:00 AM EDT Former smoker completed Former smoker [facility] ([facility]) Smoking 08/14/2020 12:00:00 AM EDT Former smoker completed Former smoker [facility] ([facility]) Smoking 08/02/2020 12:00:00 AM EDT Never smoker completed Never s moker [facility] ([facility]) Smoking 07/26/2020 12:00:00 AM EDT Former smoker completed Former smoker [facility] ([facility]) Smoking 07/03/2020 12:00:00 AM EDT Former smoker completed Former smoker [facility] ([facility]) Smoking 06/20/2020 12:00:00 AM EDT Former smoker completed Former smoker [facility] ([facility]) Smoking 06/14/2020 12:00:00 AM EDT Former smoker completed Former smoker [facility] ([facility]) Smoking 05/31/2020 12:00:00 AM EDT Former smoker completed Former smoker [facility] ([facility]) Smoking 05/09/2020 12:00:00 AM EST Former smoker completed Former smoker [facility] ([facility]) Smoking 04/20/2020 12:00:00 AM EST Former smoker completed Former smoker [facility] ([facility]) Smoking 04/18/2020 12:00:00 AM EST Former smoker completed Former smoker [facility] ([facility]) Smoking 04/05/2020 12:00:00 AM EST Former smoker completed Former smoker [facility] ([facility]) Smoking 03/20/2020 12:00:00 AM EST Former smoker completed Former smoker [facility] ([facility]) Smoking 03/14/2020 12:00:00 AM EST Former smoker completed Former smoker [facility] ([facility]) Smoking 02/16/2020 12:00:00 AM EST Former smoker completed Former smoker [facility] ([facility]) Smoking 01/31/2020 12:00:00 AM EST Former smoker completed Former smoker [facility] ([facility]) Smoking 01/21/2020 11:01:00 AM EST Former Smoker completed Former Smoker [facility] Smoking 01/13/2020 12:00:00 AM EST Former smoker completed Former smoker [facility] ([facility]) Smoking 01/03/2020 12:00:00 AM EDT Former smoker completed Former smoker [facility] ([facility]) Smoking 12/24/2019 12:00:00 AM EDT Former smoker completed Former smoker [facility] ([facility]) Alcohol intake 12/09/2019 12:00:00 AM EDT Current drinker of al cohol (finding) completed Current drinker of alcohol (finding) [facility] Cigarettes smoked current (pack per day) - Reported 12/09/19 12:00:00 AM EDT UNK completed [facility] Smoking 12/09/2019 12:00:00 AM EDT Former smoker completed Former smoker [facility] Smoking 12/08/2019 12:00:00 AM EDT Former smoker completed Former smoker [facility] ([facility]) Vital Signs ID Date Data Source UNK Name Value Range Interpretation Code Description Data Source(s) Body height 62 [in_i] 62 [in_i] [facility]) Body mass index (BMI) [Ratio] 33.3 kg/m2 33.3 k g/m2 [facility] ([facility]) Body weight 2912 [oz_av] 2912 [oz_av] LES ([facility]) Body height 62 [in_i] 62 [in_i] [facility] ([facility]) Body height 62 [in_i] 62 [in_i] [facility] Body mass index (BMI) [Ratio] 33.3 kg/m2 33.3 k g/m2 [facility] ([facility]) Body weight 2912 [oz_av] 2912 [oz_av] [facility] ([facility]) Diastolic blood pressure 78 mm[Hg] 78 mm[Hg] [facility] ([facility]) Body height 62 [in_i] 62 [in_i] [facility] ([facility]) Body mass index (BMI) [Ratio] 34.8 kg/m2 34.8 k g/m2 [facility] ([facility]) Systolic blood pressure 115 mm[Hg] 115 mm[Hg] A THENA ([facility]) Body weight 3040 [oz_av] 3040 [oz_av] LES ([facility]) Diastolic blood pressure 78 mm[Hg] 78 mm[Hg] LES ([facility]) Body height 62 [in_i] 62 [in_i] [facility] ([facility]) Body mass index (BMI) [Ratio] 34.8 kg/m2 34.8 k g/m2 [facility] ([facility]) Systolic blood pressure 115 mm[Hg] 115 mm[Hg] A THENA ([facility]) Body weight 3040 [oz_av] 3040 [oz_av] LES ([facility]) Diastolic blood pressure 78 mm[Hg] 78 mm[Hg] L[facility] ([facility]) Body height 62 [in_i] 62 [in_i] [facility] ([facility]) Body mass index (BMI) [Ratio] 34.8 kg/m2 34.8 k g/m2 L[facility] ([facility]) Systolic blood pressure 115 mm[Hg] 115 mm[Hg] A THENA ([facility]) Body weight 3040 [oz_av] 3040 [oz_av] LES ([facility]) Body height 157.48 cm 157.48 cm [facility] Body weight 84.459 kg 84.459 kg [facility] ([facility]) Systolic blood pressure 118 mm[Hg] 118 mm[Hg] N [facility] ([facility]) Diastolic blood pressure 78 mm[Hg] 78 mm[Hg] [facility] ([facility]) Body mass index (BMI) [Ratio] 34.06 kg/m2 Overweight 34.06 kg/m2 [facility] ([facility]) Body weight 184.00 [lb_av] 184.00 [lb_av] [facility] ([facility]) Body height 0.00 in Normal (applies to non-numeric resu lts) 0.00 in [facility] Body weight Measured 0.00 lbs Normal (applies to n on-numeric results) 0.00 lbs [facility] ([facility]) Body mass index (BMI) [Ratio] 0.00 kg/m2 No rmal (applies to non-numeric results) 0.00 kg/m2 [facility] ([facility]) Systolic blood pressure 0 mm[Hg] Normal (applies t o non-numeric results) 0 mm[Hg] [facility] ([facility]) Diastolic blood pressure 0 mm[Hg] Normal (applies to non-numeric results) 0 mm[Hg] [facility] Body weight 190.38 [lb_av] 190.38 [lb_av] MIRTHA [facility] ([facility]) Body height 0.00 in Normal (applies to non-numeric resu lts) 0.00 in [facility] ([facility]) Body weight Measured 0.00 lbs Normal (applies to n on-numeric results) 0.00 lbs [facility] Body mass index (BMI) [Ratio] 0.00 kg/m2 No rmal (applies to non-numeric results) 0.00 kg/m2 [facility] ([facility]) Systolic blood pressure 0 mm[Hg] Normal (applies t o non-numeric results) 0 mm[Hg] [facility]) Diastolic blood pressure 0 mm[Hg] Normal (applies to non-numeric results) 0 mm[Hg] [facility]) Diastolic blood pressure 80 mm[Hg] 80 mm[Hg] LES ([facility]) Systolic blood pressure 122 mm[Hg] 122 mm[Hg] Luan THENA ([facility]) Body height 62 [in_i] 62 [in_i] [facility] ([facility]) Body mass index (BMI) [Ratio] 35.3 kg/m2 35.3 k g/m2 L[facility] ([facility]) Body weight 3090 [oz_av] 3090 [oz_av] LES ([facility]) Diastolic blood pressure 80 mm[Hg] 80 mm[Hg] L[facility] ([facility]) Body height 62 [in_i] 62 [in_i] [facility] ([facility]) Body mass index (BMI) [Ratio] 35.3 kg/m2 35.3 k g/m2 [facility] ([facility]) Systolic blood pressure 122 mm[Hg] 122 mm[Hg] A THENA ([facility]) Body weight 3090 [oz_av] 3090 [oz_av] LES ([facility]) Diastolic blood pressure 80 mm[Hg] 80 mm[Hg] LES ([facility]) Body height 62 [in_i] 62 [in_i] [facility] ([facility]) Body mass index (BMI) [Ratio] 35.3 kg/m2 35.3 k g/m2 L[facility] ([facility]) Systolic blood pressure 122 mm[Hg] 122 mm[Hg] A THENA ([facility]) Body weight 3090 [oz_av] 3090 [oz_av] L[facility] ([facility]) Diastolic blood pressure 80 mm[Hg] 80 mm[Hg] L[facility] ([facility]) Body height 62 [in_i] 62 [in_i] [facility] ([facility]) Body mass index (BMI) [Ratio] 35.3 kg/m2 35.3 k g/m2 [facility] ([facility]) Systolic blood pressure 122 mm[Hg] 122 mm[Hg] A THENA ([facility]) Body weight 3090 [oz_av] 3090 [oz_av] L[facility] ([facility]) Body height 0.00 in Normal (applies to non-numeric resu lts) 0.00 in [facility] ([facility]) Body weight Measured 0.00 lbs Normal (applies to n on-numeric results) 0.00 lbs [facility] ([facility]) Body mass index (BMI) [Ratio] 0.00 kg/m2 No rmal (applies to non-numeric results) 0.00 kg/m2 [facility] ([facility]) Systolic blood pressure 0 mm[Hg] Normal (applies t o non-numeric results) 0 mm[Hg] [facility] ([facility]) Diastolic blood pressure 0 mm[Hg] Normal (applies to non-numeric results) 0 mm[Hg] [facility] ([facility]) Body weight 204.31 [lb_av] 204.31 [lb_av] [facility] ([facility]) Body height 62.00 [in_i] 62.00 [in_i] [facility] 5'2" Body weight 214.00 [lb_av] 214.00 [lb_av] [facility] ([facility]) Body mass index (BMI) [Ratio] 39.1 kg/m2 39.1 k g/m2 [facility] ([facility]) Systolic blood pressure 130 mm[Hg] 130 mm[Hg] M EDENT ([facility]) Diastolic blood pressure 76 mm[Hg] 76 mm[Hg] [facility] ([facility]) Heart rate 75 /min 75 /min [facility] ([facility]) Body temperature 96.0 [degF] 96.0 [degF] [facility] ([facility]) Body temperature 35.6 Suzette 35.6 Suzette [facility] ( [facility]) Oxygen saturation in Arterial blood by Pulse oximetry 97 % 97 % [facility] Body height 0.00 in Normal (applies to non-numeric resu lts) 0.00 in [facility] ([facility]) Body weight Measured 0.00 lbs Normal (applies to n on-numeric results) 0.00 lbs [facility] ([facility]) Body mass index (BMI) [Ratio] 0.00 kg/m2 No rmal (applies to non-numeric results) 0.00 kg/m2 [facility] ([facility]) Systolic blood pressure 0 mm[Hg] Normal (applies t o non-numeric results) 0 mm[Hg] [facility] ([facility]) Diastolic blood pressure 0 mm[Hg] Normal (applies to non-numeric results) 0 mm[Hg] [facility] ([facility]) Systolic blood pressure 118 mm[Hg] Normal (applies t o non-numeric results) 118 mm[Hg] [facility] Diastolic blood pressure 84 mm[Hg] Normal (applies to non-numeric results) 84 mm[Hg] [facility] Heart rate 67 min Normal (applies to non-numeric resul ts) 67 min [facility] Respiratory rate 18 min Normal (applies to non-numeric results) 18 min [facility] Body temperature 37.3 suzette Normal (applies to non-numeric results) 37.3 suzette [facility] Deprecated Oxygen saturation in Capillary blood by Oximetry 96 % Normal (applies to non-numeric results) 96 % [facility] Body mass index (BMI) [Ratio] 40.36 kg/m2 No rmal (applies to non-numeric results) 40.36 kg/m2 [facility] Body height 157.2768 cm Normal (applies to non-numeric res ults) 157.2768 cm [facility] Body weight Measured 100.1 kg Normal (applies to n on-numeric results) 100.1 kg [facility] Inhaled oxygen concentration 21 % Normal (appl ies to non-numeric results) 21 % [facility] Diastolic blood pressure 84 mm[Hg] 84 mm[Hg] [facility] ([facility]) Body height 62 [in_i] 62 [in_i] [facility] ([facility]) Body mass index (BMI) [Ratio] 42 kg/m2 42 kg/ m2 [facility] ([facility]) Systolic blood pressure 125 mm[Hg] 125 mm[Hg] [facility] ([facility]) Body weight 3672 [oz_av] 3672 [oz_av] LES ([facility]) Diastolic blood pressure 84 mm[Hg] 84 mm[Hg] L[facility] ([facility]) Body height 62 [in_i] 62 [in_i] [facility] ([facility]) Body mass index (BMI) [Ratio] 42 kg/m2 42 kg/ m2 [facility] ([facility]) Systolic blood pressure 125 mm[Hg] 125 mm[Hg] A [facility] ([facility]) Body weight 3672 [oz_av] 3672 [oz_av] LES ([facility]) Diastolic blood pressure 84 mm[Hg] 84 mm[Hg] L[facility] ([facility]) Body height 62 [in_i] 62 [in_i] [facility] ([facility]) Body mass index (BMI) [Ratio] 42 kg/m2 42 kg/ m2 [facility] ([facility]) Systolic blood pressure 125 mm[Hg] 125 mm[Hg] A [facility] ([facility]) Body weight 3672 [oz_av] 3672 [oz_av] LES ([facility]) Diastolic blood pressure 84 mm[Hg] 84 mm[Hg] [facility] ([facility]) Body height 62 [in_i] 62 [in_i] [facility] ([facility]) Body mass index (BMI) [Ratio] 42 kg/m2 42 kg/ m2 [facility] ([facility]) Systolic blood pressure 125 mm[Hg] 125 mm[Hg] A [place] ([facility]) Body weight 3672 [oz_av] 3672 [oz_av] L[facility] ([facility]) Diastolic blood pressure 84 mm[Hg] 84 mm[Hg] [facility] ([facility]) Body height 62 [in_i] 62 [in_i] [facility] ([facility]) Body mass index (BMI) [Ratio] 42 kg/m2 42 kg/ m2 [facility] ([facility]) Systolic blood pressure 125 mm[Hg] 125 mm[Hg] A [place]ASIAA ([facility]) Body weight 3672 [oz_av] 3672 [oz_av] LES ([facility]) Body weight 230.38 [lb_av] 230.38 [lb_av] MEDEN T ([facility]) Systolic blood pressure 134 mm[Hg] 134 mm[Hg] M EDENT ([facility]) Diastolic blood pressure 88 mm[Hg] 88 mm[Hg] MEDENT ([facility]) Heart rate 75 /min 75 /min MEDENT ([facility]) Body temperature 97.0 [degF] 97.0 [degF] MEDENT ([facility]) Body temperature 36.1 Suzette 36.1 Suzette MEDENT ( [facility]) Oxygen saturation in Arterial blood by Pulse oximetry 97 % 97 % MEDENT ([facility]) Body mass index (BMI) [Ratio] 25.3 kg/m2 25.3 k g/m2 MEDENT ([facility]) Body height 80.00 [in_i] 80.00 [in_i] MEDENT ([facility]) 6'8" Heart rate 75 /min 75 /min [facility] Body temperature 97.0 [degF] 97.0 [degF] MEDENT ([facility]) Body height 62.00 [in_i] 62.00 [in_i] MEDENT ([facility]) 5'2" Body weight 230.00 [lb_av] 230.00 [lb_av] MEDEN T ([facility]) Body mass index (BMI) [Ratio] 42.1 kg/m2 42.1 k g/m2 MEDENT ([facility]) Systolic blood pressure 134 mm[Hg] 134 mm[Hg] M EDENT ([facility]) Diastolic blood pressure 88 mm[Hg] 88 mm[Hg] MEDENT ([facility]) Body temperature 36.1 Suzette 36.1 Suzette MEDENT ( [facility]) Oxygen saturation in Arterial blood by Pulse oximetry 97 % 97 % [facility] Body weight 225.00 [lb_av] 225.00 [lb_av] MEDEN T ([facility]) Body height 0.00 in Normal (applies to non-numeric resu lts) 0.00 in [facility]) Body weight Measured 0.00 lbs Normal (applies to n on-numeric results) 0.00 lbs [facility] ([facility]) Body mass index (BMI) [Ratio] 0.00 kg/m2 No rmal (applies to non-numeric results) 0.00 kg/m2 [facility] ([facility]) Systolic blood pressure 0 mm[Hg] Normal (applies t o non-numeric results) 0 mm[Hg] [facility] ([facility]) Diastolic blood pressure 0 mm[Hg] Normal (applies to non-numeric results) 0 mm[Hg] [facility] ([facility]) Body temperature 97.8 [degF] 97.8 [degF] MEDENT ([facility]) Body height 62.00 [in_i] 62.00 [in_i] MEDENT ([facility]) 5'2" Body weight 225.12 [lb_av] 225.12 [lb_av] MEDEN T ([facility]) Body mass index (BMI) [Ratio] 41.2 kg/m2 41.2 k g/m2 MEDENT ([facility]) Systolic blood pressure 139 mm[Hg] 139 mm[Hg] M EDENT ([facility]) Diastolic blood pressure 86 mm[Hg] 86 mm[Hg] MEDENT ([facility]) Heart rate 82 /min 82 /min MEDENT ([facility]) Body temperature 36.6 Suzette 36.6 Suzette MEDENT ( [facility]) Oxygen saturation in Arterial blood by Pulse oximetry 99 % 99 % [facility]) ID Date Data Source [id number] 12/09/2019 11:19:23 AM [facility] Name Value Range Interpretation Code Description Data Source(s) WEIGHT RECORDED 225 lb 225 lb [facility] Body height Measured 62.48 in 62.48 in [facility] Patient Treatment Plan of Care Planned Activity Planned Date Details Description Data Source (s) Levothyroxine Sodium 0.2 MG Oral Tablet 12/09/2019 12:00:00 AM [facility] Acetaminophen 325 MG / Oxycodone Hydrochloride 5 MG Or al Tablet 08/13/2019 12:00:00 AM [facility] Levothyroxine Sodium 0.2 MG Oral Tablet 08/19/2018 12:00:00 AM [facility] 24 HR venlafaxine 75 MG Extended Release Oral Capsule 12/17/2016 12:00:00 AM [facility] Cholecalciferol 1000 UNT Oral Capsule 06/04/2013 12:00:00 AM [facility] vilazodone hydrochloride 10 MG Oral Tablet [Viibryd] LES ([facility]) topiramate 50 MG Oral Tablet LES ([facility]) Sertraline 50 MG Oral Tablet LES ([facility]) Prednisone 20 MG Oral Tablet LES ([facility]) Acetaminophen 325 MG / Oxycodone Hydrochloride 5 MG Oral Tablet LES ([facility]) Oxycodone Hydrochloride 5 MG Oral Tablet LES ([facility]) Ondansetron 4 MG Disintegrating Oral Tablet LES ([facility]) Omeprazole 40 MG Delayed Release Oral Capsule LES ([facility]) lamotrigine 25 MG Oral Tablet LES ([facility]) Ibuprofen 800 MG Oral Tablet LES ([facility]) Hydroxyzine Hydrochloride 25 MG Oral Tablet LES ([facility]) Amphetamine aspartate 5 MG / Amphetamine Sulfate 5 MG / Dextroamphetamine saccharate 5 MG / Dextroamphetamine Sulfate 5 MG Oral Tablet LES ([facility]) buspirone hydrochloride 10 MG Oral Tablet LES ([facility]) 24 HR Bupropion Hydrochloride 300 MG Extended Release Oral Tablet LES ([facility]) 24 HR Bupropion Hydrochloride 150 MG Extended Release Oral Tablet LES ([facility]) aripiprazole 5 MG Oral Tablet LES ([facility]) aripiprazole 2 MG Oral Tablet LES ([facility]) Amoxicillin 500 MG Oral Capsule LES ([facility]) vilazodone hydrochloride 10 MG Oral Tablet [Viibryd] LES ([facility]) topiramate 50 MG Oral Tablet LES ([facility]) Sertraline 50 MG Oral Tablet LES ([facility]) Prednisone 20 MG Oral Tablet LES ([facility]) Acetaminophen 325 MG / Oxycodone Hydrochloride 5 MG Oral Tablet LES ([facility]) Oxycodone Hydrochloride 5 MG Oral Tablet LES ([facility]) Ondansetron 4 MG Disintegrating Oral Tablet LES ([facility]) Omeprazole 40 MG Delayed Release Oral Capsule LES ([facility]) Ibuprofen 800 MG Oral Tablet LES ([facility]) buspirone hydrochloride 10 MG Oral Tablet LES ([facility]) 24 HR Bupropion Hydrochloride 300 MG Extended Release Oral Tablet LES ([facility]) 24 HR Bupropion Hydrochloride 150 MG Extended Release Oral Tablet LES ([facility]) aripiprazole 5 MG Oral Tablet LES ([facility]) aripiprazole 2 MG Oral Tablet LES ([facility]) Amoxicillin 500 MG Oral Capsule LES ([facility]) vilazodone hydrochloride 10 MG Oral Tablet [Viibryd] LES ([facility]) Sertraline 50 MG Oral Tablet LES ([facility]) Acetaminophen 325 MG / Oxycodone Hydrochloride 5 MG Oral Tablet LES ([facility]) Oxycodone Hydrochloride 5 MG Oral Tablet LES ([facility]) Ondansetron 4 MG Disintegrating Oral Tablet LES ([facility]) Omeprazole 40 MG Delayed Release Oral Capsule LES ([facility]) Ibuprofen 800 MG Oral Tablet LES ([facility]) buspirone hydrochloride 10 MG Oral Tablet LES ([facility]) 24 HR Bupropion Hydrochloride 300 MG Extended Release Oral Tablet LES ([facility]) 24 HR Bupropion Hydrochloride 150 MG Extended Release Oral Tablet LES ([facility]) aripiprazole 5 MG Oral Tablet LES ([facility]) aripiprazole 2 MG Oral Tablet LES ([facility]) Amoxicillin 500 MG Oral Capsule LES ([facility]) liothyronine sodium 0.005 MG Oral Tablet [Cytomel] [facility] ([facility]) 24 HR Bupropion Hydrochloride 150 MG Extended Release Oral Tablet [Wellbutrin] [facility] vilazodone hydrochloride 10 MG Oral Tablet [Viibryd] LES ([facility]) Sertraline 50 MG Oral Tablet LES ([facility]) Prednisone 20 MG Oral Tablet LES ([facility]) Acetaminophen 325 MG / Oxycodone Hydrochloride 5 MG Oral Tablet LES ([facility]) Oxycodone Hydrochloride 5 MG Oral Tablet LES ([facility]) Ondansetron 4 MG Disintegrating Oral Tablet LES ([facility]) Omeprazole 40 MG Delayed Release Oral Capsule LES ([facility]) Ibuprofen 800 MG Oral Tablet LES ([facility]) buspirone hydrochloride 10 MG Oral Tablet LES ([facility]) 24 HR Bupropion Hydrochloride 300 MG Extended Release Oral Tablet LES ([facility]) 24 HR Bupropion Hydrochloride 150 MG Extended Release Oral Tablet LES ([facility]) aripiprazole 5 MG Oral Tablet LES ([facility]) aripiprazole 2 MG Oral Tablet LES ([facility]) Amoxicillin 500 MG Oral Capsule LES ([facility]) Sertraline 50 MG Oral Tablet LES ([facility]) Prednisone 20 MG Oral Tablet LES ([facility]) Acetaminophen 325 MG / Oxycodone Hydrochloride 5 MG Oral Tablet LES ([facility]) Ondansetron 4 MG Disintegrating Oral Tablet LES ([facility]) Ibuprofen 800 MG Oral Tablet LES ([facility]) buspirone hydrochloride 10 MG Oral Tablet LES ([facility]) 24 HR Bupropion Hydrochloride 300 MG Extended Release Oral Tablet LES ([facility]) 24 HR Bupropion Hydrochloride 150 MG Extended Release Oral Tablet LES ([facility]) aripiprazole 5 MG Oral Tablet LES ([facility]) aripiprazole 2 MG Oral Tablet LES ([facility]) Amoxicillin 500 MG Oral Capsule LES ([facility]) [facility]
[2021-01-23] MEDS ORDERED: AMPH1CAP16 (16:30)
[2021-01-23] MEDS ORDERED: VIIB40TA (16:30)
[2021-01-23] MEDS ORDERED: LAMO100T3 (16:30)
[2021-01-23] MEDS ORDERED: methylPREDNISolone 125MG 2ML VIAL IV ONE (17:20)
--- OUTSIDE RECORDS SUMMARY | 2021-01-23 17:32 | CCD ---
Author Author [facility] Organization [facility] Address Unknown Phone Unavailable Support Name Relationship Address Phone ELISABETH ARCOS Next Of Kin [address] [place] [address] SMC* Next Of Kin [address] [place] [address] MALCOLM ARCOS Next Of Kin [address] [place] [address] Unavailable Debbie Lantigua Next Of Kin Unknown Unavailable [facility] Next Of Kin [address] [place] [address] Hanane Mosqueda Next Of Kin [address] [place] [address] DEBBIE PARR Next Of Kin Unknown Unavailable [facility] Next Of Kin [id number] [place] [address] [place] [address] SSV* Next Of Kin [address] [place] [address] MARCO BOUCHER Next Of Kin [address] [place] [address] UNK Next Of Kin Unknown Unavailable [place] [address] RODDY MERCADO Next Of Kin [address] [place] [address] UE Next Of Kin Unknown Unavailable DEBBIE BOUCHER Next Of Kin [address] [place] [address] [facility] A[facility] Next Of Kin [address] [place] [address] Unavailable QUETA MERCADO Next Of Kin [address] [place] [address] [place] [address] UNKNOWN Next Of Kin Unknown Unavailable Debbie Boucher [address] [place] [address] [phone] Care Team Providers Care Hand Tapper Name Role Phone SANTIAGO, M DIONE DO Unavailable Unavailable SANTIAGO, M DIONE DO Unavailable Unavailable SANTIAGO, M DIONE DO Unavailable Unavailable SANTIAGO, M DIONE DO Unavailable Unavailable SANTIAGO, M DIONE DO Unavailable Unavailable SANTIAGO, M DIONE DO Unavailable Unavailable SANTIAGO, M DIONE DO Unavailable Unavailable SANTIAGO, M DIONE DO Unavailable Unavailable SANTIAGO, M DIONE DO Unavailable Unavailable SANTIAGO, M DIONE DO Unavailable Unavailable SANTIAGO, M DIONE DO Unavailable Unavailable SANTIAGO, M DIONE DO Unavailable Unavailable SANTIAGO, M DIONE DO Unavailable Unavailable SANTIAGO, M DIONE DO Unavailable Unavailable SANTIAGO, M DIONE DO Unavailable Unavailable SANTIAGO, M DIONE DO Unavailable Unavailable SANTIAGO, M DIONE DO Unavailable Unavailable SANTIAGO, M DIONE DO Unavailable Unavailable SANTIAGO, M DIONE DO Unavailable Unavailable SANTIAGO, M DIONE DO Unavailable Unavailable SANTIAGO, M DIONE DO Unavailable Unavailable SANTIAGO, M DIONE DO Unavailable Unavailable SANTIAGO, M DIONE DO Unavailable Unavailable SANTIAGO, M DIONE DO Unavailable Unavailable SANTIAGO, M DIONE DO Unavailable Unavailable SANTIAGO, M DIONE DO Unavailable Unavailable SANTIAGO, M DIONE DO Unavailable Unavailable SANTIAGO, M DIONE DO Unavailable Unavailable SANTIAGO, M DIONE DO Unavailable Unavailable SANITAGO, M DIONE DO Unavailable Unavailable SANTIAGO, M DIONE DO Unavailable Unavailable SANTIAGO, M DIONE DO Unavailable Unavailable SANTIAGO, M DIONE DO Unavailable Unavailable SANTIAGO, M DIONE DO Unavailable Unavailable SANTIAGO, M DIONE DO Unavailable Unavailable SANTIAGO, M DIONE DO Unavailable Unavailable SANTIAGO, M DIONE DO Unavailable Unavailable SANTIAGO, M DIONE DO Unavailable Unavailable SANTIAGO, M DIONE DO Unavailable Unavailable SANTIAGO, M DIONE DO Unavailable Unavailable SANTIAGO, M DIONE DO Unavailable Unavailable SANTIAGO, M DIONE DO Unavailable Unavailable SANTIAGO, M DIONE DO Unavailable Unavailable SANTIAGO, M DIONE DO Unavailable Unavailable SANTIAGO, M DIONE DO Unavailable Unavailable SANTIAGO, M DIONE DO Unavailable Unavailable SANTIAGO, M DIONE DO Unavailable Unavailable SANTIAGO, M DIONE DO Unavailable Unavailable SANTIAGO, M DIONE DO Unavailable Unavailable SANTIAGO, M DIONE DO Unavailable Unavailable SANTIAGO, M DIONE DO Unavailable Unavailable SANTIAGO, M DIONE DO Unavailable Unavailable SANTIAGO, M DIONE DO Unavailable Unavailable SANTIAGO, M DIONE DO Unavailable Unavailable SANTIAGO, M DIONE DO Unavailable Unavailable SANTIAGO, M DIONE DO Unavailable Unavailable SANTIAGO, M DIONE DO Unavailable Unavailable SANTIAGO, M DIONE DO Unavailable Unavailable SANTIAGO, M DIONE DO Unavailable Unavailable SANTIAGO, M DIONE DO Unavailable Unavailable SANTIAGO, M DIONE DO Unavailable Unavailable SANTIAGO, M DIONE DO Unavailable Unavailable SANTIAGO, M DIONE DO Unavailable Unavailable SANTIAGO, M DIONE DO Unavailable Unavailable SANTIAGO, M DIONE DO Unavailable Unavailable SANTIAGO, M DIONE DO Unavailable Unavailable SANTIAGO, M DIONE DO Unavailable Unavailable SANTIAGO, M DIONE DO Unavailable Unavailable SANTIAGO, M DIONE DO Unavailable Unavailable Hanane Tapia JAILKEEPER JAILKEEPER Unavailable Unavailable Machelle Toribio Unavailable [phone] XU, BRITTANEY REPAIRER SCREEN CRUSHER Unavailable Unavailable XU, BRITTANEY REPAIRER SCREEN CRUSHER Unavailable Unavailable XU, BRITTANEY REPAIRER SCREEN CRUSHER Unavailable Unavailable XU, BRITTANEY REPAIRER SCREEN CRUSHER Unavailable Unavailable XU, BRITTANEY REPAIRER SCREEN CRUSHER Unavailable Unavailable XU, BRITTANEY REPAIRER SCREEN CRUSHER Unavailable Unavailable XU, BRITTANEY REPAIRER SCREEN CRUSHER Unavailable Unavailable Green REPAIRER SCREEN CRUSHER REPAIRER SCREEN CRUSHER, Aziza Unavailable Unavailable Green REPAIRER SCREEN CRUSHER REPAIRER SCREEN CRUSHER, Aziza Unavailable Unavailable Green REPAIRER SCREEN CRUSHER REPAIRER SCREEN CRUSHER, Aziza Unavailable Unavailable Green REPAIRER SCREEN CRUSHER REPAIRER SCREEN CRUSHER, Aziza Unavailable Unavailable Green REPAIRER SCREEN CRUSHER REPAIRER SCREEN CRUSHER, Aziza Unavailable Unavailable SANTIAGO, M DIONE DO Unavailable Unavailable SANTIAGO, M DIONE DO Unavailable Unavailable SANTIAGO, M DIONE DO Unavailable Unavailable SANTIAGO, M DIONE DO Unavailable Unavailable SANTIAGO, M DIONE DO Unavailable Unavailable SANTIAGO, M DIONE DO Unavailable Unavailable SANTIAGO, M DIONE DO Unavailable Unavailable SANTIAGO, M DIONE DO Unavailable Unavailable SANTIAGO, M DIONE DO Unavailable Unavailable SANTIAGO, M DIONE DO Unavailable Unavailable SANTIAGO, M DIONE DO Unavailable Unavailable SANTIAGO, M DIONE DO Unavailable Unavailable SANTIAGO, M DIONE DO Unavailable Unavailable SANTIAGO, M DIONE DO Unavailable Unavailable SANTIAGO, M DIONE DO Unavailable Unavailable SANTIAGO, M DIONE DO Unavailable Unavailable SANTIAGO, M DIONE DO Unavailable Unavailable SANTIAGO, M DIONE DO Unavailable Unavailable SANTIAGO, M DIONE DO Unavailable Unavailable SANTIAGO, M DIONE DO Unavailable Unavailable SANTIAGO, M DIONE DO Unavailable Unavailable SANTIAGO, M DIONE DO Unavailable Unavailable SANTIAGO, M DIONE DO Unavailable Unavailable SANTIAGO, M DIONE DO Unavailable Unavailable SANTIAGO, M DIONE DO Unavailable Unavailable SANTIAGO, M DIONE DO Unavailable Unavailable SANTIAGO, M DIONE DO Unavailable Unavailable SANTIAGO, M DIONE DO Unavailable Unavailable SANTIAGO, M DIONE DO Unavailable Unavailable SANTIAGO, M DIONE DO Unavailable Unavailable SANTIAGO, M DIONE DO Unavailable Unavailable SANTIAGO, M DIONE DO Unavailable Unavailable SANTIAGO, M DIONE DO Unavailable Unavailable SANTIAGO, M DIONE DO Unavailable Unavailable SANTIAGO, M DIONE DO Unavailable Unavailable SANTIAGO, M DIONE DO Unavailable Unavailable SANTIAGO, M DIONE DO Unavailable Unavailable SANTIAGO, M DIONE DO Unavailable Unavailable SANTIAGO, M DIONE DO Unavailable Unavailable SANTIAGO, M DIONE DO Unavailable Unavailable SANTIAGO, M DIONE DO Unavailable Unavailable SANTIAGO, M DIONE DO Unavailable Unavailable SANTIAGO, M DIONE DO Unavailable Unavailable SANTIAGO, M IDONE DO Unavailable Unavailable SANTIAGO, M DIONE DO Unavailable Unavailable SANTIAGO, M DIONE DO Unavailable Unavailable SANTIAGO, M DIONE DO Unavailable Unavailable SANTIAGO, M DIONE DO Unavailable Unavailable SANTIAGO, M DIONE DO Unavailable Unavailable SANTIAGO, M DIONE DO Unavailable Unavailable SANTIAGO, M DIONE DO Unavailable Unavailable SANTIAGO, M DIONE DO Unavailable Unavailable SANTIAGO, M DIONE DO Unavailable Unavailable SANTIAGO, M DIONE DO Unavailable Unavailable SANTIAGO, M DIONE DO Unavailable Unavailable SANTIAGO, M DIONE DO Unavailable Unavailable SANTIAGO, M DIONE DO Unavailable Unavailable SANTIAGO, M DIONE DO Unavailable Unavailable SANTIAGO, M DIONE DO Unavailable Unavailable SANTIAGO, M DIONE DO Unavailable Unavailable SANTIAGO, M DIONE DO Unavailable Unavailable SANTIAGO, M DIONE DO Unavailable Unavailable SANTIAGO, M DIONE DO Unavailable Unavailable SANTIAGO, M DIONE DO Unavailable Unavailable SANTIAGO, M DIONE DO Unavailable Unavailable SANTIAGO, M DIONE DO Unavailable Unavailable SANTIAGO, M DIONE DO Unavailable Unavailable SANTIAGO, M DIONE DO Unavailable Unavailable SANTIAGO, M DIONE DO Unavailable Unavailable GUERO, H AGATHA REPAIRER SCREEN CRUSHER Unavailable Unavailable GUERO, H AGATHA REPAIRER SCREEN CRUSHER Unavailable Unavailable GUERO, H AGATHA REPAIRER SCREEN CRUSHER Unavailable Unavailable GUERO, H AGATHA REPAIRER SCREEN CRUSHER Unavailable Unavailable GUERO, H AGATHA REPAIRER SCREEN CRUSHER Unavailable Unavailable UGERO, H AGATHA REPAIRER SCREEN CRUSHER Unavailable Unavailable GUERO, H AGATHA REPAIRER SCREEN CRUSHER Unavailable Unavailable GUERO, H AGATHA REPAIRER SCREEN CRUSHER Unavailable Unavailable GUERO, H AGATHA REPAIRER SCREEN CRUSHER Unavailable Unavailable NICKIE, ALICE PA Unavailable Unavailable [...] NICKIE, ALICE PA Unavailable Unavailable SANTIAGO, M DIONE DO Unavailable Unavailable SANTIAGO, M DIONE DO Unavailable Unavailable SANTIAGO, M DIONE DO Unavailable Unavailable SANTIAGO, M DIONE DO Unavailable Unavailable SANTIAGO, M DIONE DO Unavailable Unavailable SANTIAGO, M DIONE DO Unavailable Unavailable SANTIAGO, M DIONE DO Unavailable Unavailable SANTIAGO, M DIONE DO Unavailable Unavailable SANTIAGO, M DIONE DO Unavailable Unavailable SANTIAGO, M DIONE DO Unavailable Unavailable SANTIAGO, M DIONE DO Unavailable Unavailable SANTIAGO, M DIONE DO Unavailable Unavailable SANTIAGO, M DIONE DO Unavailable Unavailable SANTIAGO, M DIONE DO Unavailable Unavailable SANTIAGO, M DIONE DO Unavailable Unavailable SANTIAGO, M DIONE DO Unavailable Unavailable SANTIAGO, M DIONE DO Unavailable Unavailable SANTIAGO, M DIONE DO Unavailable Unavailable SANTIAGO, M DIONE DO Unavailable Unavailable SANTIAGO, M DIONE DO Unavailable Unavailable SANTIAGO, M DIONE DO Unavailable Unavailable SANTIAGO, M DIONE DO Unavailable Unavailable SANTIAGO, M DIONE DO Unavailable Unavailable SANTIAGO, M DIONE DO Unavailable Unavailable SANTIAGO, M DIONE DO Unavailable Unavailable SANTIAGO, M DIONE DO Unavailable Unavailable SANTIAGO, M DIONE DO Unavailable Unavailable SANTIAGO, M DIONE DO Unavailable Unavailable SANTIAGO, M DIONE DO Unavailable Unavailable SANTIAGO, M DIONE DO Unavailable Unavailable SANTIAGO, M DIONE DO Unavailable Unavailable SANTIAGO, M DIONE DO Unavailable Unavailable SANTIAGO, M DIONE DO Unavailable Unavailable SANTIAGO, M DIONE DO Unavailable Unavailable SANTIAGO, M DIONE DO Unavailable Unavailable SANTIAGO, M DIONE DO Unavailable Unavailable SANTIAGO, M DIONE DO Unavailable Unavailable SANTIAGO, M DIONE DO Unavailable Unavailable SANTIAGO, M DIONE DO Unavailable Unavailable SANTIAGO, M DIONE DO Unavailable Unavailable SANTIAGO, M DIONE DO Unavailable Unavailable SANTIAGO, M DIONE DO Unavailable Unavailable SANTIAGO, M DIONE DO Unavailable Unavailable SANTIAGO, M DIONE DO Unavailable Unavailable SANTIAGO, M DIONE DO Unavailable Unavailable SANTIAGO, M DIONE DO Unavailable Unavailable SANTIAGO, M DIONE DO Unavailable Unavailable SANTIAGO, M DIONE DO Unavailable Unavailable SANTIAGO, M DIONE DO Unavailable Unavailable SANTIAGO, M DIONE DO Unavailable Unavailable SANTIAGO, M DIONE DO Unavailable Unavailable SANTIAGO, M DIONE DO Unavailable Unavailable SANTIAGO, M DIONE DO Unavailable Unavailable SANTIAGO, M DIONE DO Unavailable Unavailable SANTIAGO, M DIONE DO Unavailable Unavailable SANTIAGO, M DIONE DO Unavailable Unavailable SANTIAGO, M DIONE DO Unavailable Unavailable SANTIAGO, M DIONE DO Unavailable Unavailable SANTIAGO, M DIONE DO Unavailable Unavailable SANTIAGO, M DIONE DO Unavailable Unavailable SANTIAGO, M DIONE DO Unavailable Unavailable SANTIAGO, M DIONE DO Unavailable Unavailable SANTIAGO, M DIONE DO Unavailable Unavailable SANTIAGO, M DIONE DO Unavailable Unavailable SANTIAGO, M DIONE DO Unavailable Unavailable SANTIAGO, M DIONE DO Unavailable Unavailable SANTIAGO, M DIONE DO Unavailable Unavailable SANTIAGO, M DIONE DO Unavailable Unavailable SANTIAGO, M DIONE DO Unavailable Unavailable Scordo, M Hyacinth PA [...] Hyacinth PA Unavailable Unavailable Luan ELLIOTT BS, RNC-REPAIRER SCREEN CRUSHER Unavailable Preeti vailable Luan ELLIOTT BS, RNC-REPAIRER SCREEN CRUSHER Unavailable Preeti vailable Luan ELLIOTT BS, RNC-REPAIRER SCREEN CRUSHER Unavailable Preeti vailable Luan ELLIOTT BS, RNC-REPAIRER SCREEN CRUSHER Unavailable Preeti vailable Luan ELLIOTT BS, RNC-REPAIRER SCREEN CRUSHER Unavailable Preeti vailable VU-KARMEN, A YI BS, RNC-REPAIRER SCREEN CRUSHER Unavailable Preeti vailable VU-KARMEN, A YI BS, RNC-REPAIRER SCREEN CRUSHER Unavailable Preeti vailable VU-KARMEN, A YI BS, RNC-REPAIRER SCREEN CRUSHER Unavailable Preeti vailable VU-KARMEN, A YI BS, RNC-REPAIRER SCREEN CRUSHER Unavailable Preeti vailable VU-KARMEN, A YI BS, RNC-REPAIRER SCREEN CRUSHER Unavailable Preeti vailable VU-KARMEN, A YI BS, RNC-REPAIRER SCREEN CRUSHER Unavailable Preeti vailable VU-KARMEN, A YI BS, RNC-REPAIRER SCREEN CRUSHER Unavailable Preeti vailable VU-KARMEN, A YI BS, RNC-REPAIRER SCREEN CRUSHER Unavailable Preeti vailable VU-KARMEN, A YI BS, RNC-REPAIRER SCREEN CRUSHER Unavailable Preeti vailable VU-KARMEN, A YI BS, RNC-REPAIRER SCREEN CRUSHER Unavailable Preeti vailable VU-KARMEN, A YI BS, RNC-REPAIRER SCREEN CRUSHER Unavailable Preeti vailable VU-KARMEN, A YI BS, RNC-REPAIRER SCREEN CRUSHER Unavailable Preeti vailable VU-KARMEN, A YI BS, RNC-REPAIRER SCREEN CRUSHER Unavailable Preeti vailable VU-KARMEN, A YI BS, RNC-REPAIRER SCREEN CRUSHER Unavailable Preeti vailable VU-KARMEN, A YI BS, RNC-REPAIRER SCREEN CRUSHER Unavailable Preeti vailable VU-KARMEN, A YI BS, RNC-REPAIRER SCREEN CRUSHER Unavailable Preeti vailable VU-KARMEN, A YI BS, RNC-REPAIRER SCREEN CRUSHER Unavailable Preeti vailable VU-KARMEN, A YI BS, RNC-REPAIRER SCREEN CRUSHER Unavailable Preeti vailable VU-KARMEN, A YI BS, RNC-REPAIRER SCREEN CRUSHER Unavailable Preeti vailable VU-KARMEN, A YI BS, RNC-REPAIRER SCREEN CRUSHER Unavailable Preeti vailable VU-KARMEN, A YI BS, RNC-REPAIRER SCREEN CRUSHER Unavailable Preeti vailable VU-KARMEN, A YI BS, RNC-REPAIRER SCREEN CRUSHER Unavailable Preeti vailable VU-KARMEN, A YI BS, RNC-REPAIRER SCREEN CRUSHER Unavailable Preeti vailable VU-KARMEN, A YI BS, RNC-REPAIRER SCREEN CRUSHER Unavailable Preeti vailable VU-KARMEN, A YI BS, RNC-REPAIRER SCREEN CRUSHER Unavailable Preeti vailable VU-KARMEN, A YI BS, RNC-REPAIRER SCREEN CRUSHER Unavailable Preeti vailable VU-KARMEN, A YI BS, RNC-REPAIRER SCREEN CRUSHER Unavailable Preeti vailable VU-KARMEN, A YI BS, RNC-REPAIRER SCREEN CRUSHER Unavailable Preeti vailable VU-KARMEN, A YI BS, RNC-REPAIRER SCREEN CRUSHER Unavailable Preeti vailable VU-KARMEN, A YI BS, RNC-REPAIRER SCREEN CRUSHER Unavailable Preeti vailable VU-KARMEN, A YI BS, RNC-REPAIRER SCREEN CRUSHER Unavailable Preeti vailable VU-KARMEN, A YI BS, RNC-REPAIRER SCREEN CRUSHER Unavailable Preeti vailable VU-KARMEN, A YI BS, RNC-REPAIRER SCREEN CRUSHER Unavailable Preeti vailable VU-KARMEN, A YI BS, RNC-REPAIRER SCREEN CRUSHER Unavailable Preeti vailable VU-KARMEN, A YI BS, RNC-REPAIRER SCREEN CRUSHER Unavailable Preeti vailable Franko, Debbie Unavailable Unavailable [...] Falguni ALCOCER MD Unavailable Unavailable SHANTAL, Falguni ACLOCER MD Unavailable Unavailable SHANTAL, Falguni ALCOCER MD [...] is protected by Article 27-F of the [facility] Public Health law. If you continue you may have access to information: Regarding HIV / AIDS; Provided by facilities licensed or operated by the [facility] Office of Mental Health; or Provided by the [facility] Office for People With Developmental Disabilities. If such information is present, then the following [facility] mandated warning applies: This information has [...] law may result in a fine or mcfp sentence or both. A general authorization for the release of medical or other information is NOT sufficient authorization for further disc losure. Allergies and Adverse Reactions Type Description Substance Reaction Status Data Source(s ) Propensity to adverse reactions to substance Sulfa (Bernstein lfonamide Antibiotics) Group Sulfa (Sulfonamide Antibiotics) Group Hives Active [facility] ([facility]) Family History Family Member Name Family Member Gender Family Member Status Date o f Status Description Data Source(s) Unknown Male Diagnosis 02/18/2014 12:00:00 AM EST [facility] ([facility]) Unknown Male Diagnosis 02/18/2014 12:00:00 AM EST [facility] ([facility]) Encounters Encounter Providers Location Date Indications Data Source(s ) Outpatient Attender: CARLYN MURGUIA MD 09/03/2021 12:00 :00 AM [facility] Brittaney Mcnair NPP: [address] [place] [address], Ph. Attender: BRITTANEY MCNAIR NP [facility] 01/19/2021 12:00:00 AM EST [facility]) Machelle Toribio LMSW: [address] [place] [address], Ph. Attender: Machelle Toribio [facility] 01/18/2021 12:00:00 AM EST [facility] ([facility]) Machelle Toribio LMSW: [address] [place] [address], Ph. Attender: Machelle Toribio [facility] 01/04/2021 12:00:00 AM EDT [facility] ([facility]) Outpatient Attender: CARLYN MURGUIA MD [id number] 12:00:00 AM [facility] Outpatient Attender: CARLYN MURGUIA MD 12/11/2020 12:00 :00 AM [facility] Brittaney Mcnair NPP: [address] [place] [address], Ph. Attender: BRITTANEY MCNAIR NP [facility] 12/01/2020 12:00:00 AM EDT [facility] ([facility]) Brittaney Mcnair NPP: [address], [place] [address], Ph. Attender: BRITTANEY MCNAIR NP [facility] 12/01/2020 12:00:00 AM EDT L[facility] ([facility]) Outpatient Attender: DIONE HENDERSON DO [facility] 10/31/2020 09:30:00 AM EDT [facility] ([facility]) Hyacinth Ham PA-C: [address], [place] [address], Ph. Attender: Hyacinth HERMAN [facility] 10/12/2020 12:00:00 AM EDT L[facility] ([facility]) Hyacinth Ham PA-C: [address], [place] [address], Ph. Attender: Hyacinth HERMAN [facility] 10/12/2020 12:00:00 AM EDT L[facility] ([facility]) Hyacinth Ham PA-C: [address], [place] [address], Ph. Attender: Hyacinth HERMAN [facility] 10/12/2020 12:00:00 AM EDT L[facility] ([facility]) Extended Individual Psychotherapy - 45 min Attender: Debbie Abdul [facility] Darryl 08/16/2020 01:00:00 AM EDT - 08/16/2020 01:00:00 AM EDT [facility] ([facility]) Attender: Debbie Abdul 08/16/2020 12:00:00 AM EDT [facility] ([facility]) Outpatient Attender: AGATHA LUNA NP [facility] Dylan schultz 08/14/2020 04:30:00 AM EDT - 08/14/2020 04:30:00 AM EDT [facility] ([facility]) Attender: AGATHA LUNA NP 08/14/2020 12:00:00 AM EDT [facility] ([facility]) HCS Without Test Attender: Aziza Rodriguez 08/02/2020 11:00:00 AM EDT - 08/02/2020 11:00:00 AM EDT Pelvic and perineal painHuman immunodeficiency virus [HIV] counselingOther sex counselingEncounter for removal of intrauterine contraceptive device [facility] ([facility]) Pelvic and perineal pain Human immunodeficiency virus [HIV] couns eling Other sex counseling Encounter for removal of intrauterine co ntraceptive device Outpatient Attender: YI ROMAN, RNC -REPAIRER SCREEN CRUSHER [facility] 08/01/2020 02:00:00 PM EDT [facility] ([facility]) Extended Individual Psychotherapy - 45 min Attender: Debbie Spearus [facility] 07/26/2020 09:00:00 AM EDT - 07/26/2020 09:00:00 AM EDT [facility] ([facility]) Attender: Debbie Abdul 07/26/2020 12:00:00 AM EDT [facility] ([facility]) Brief Individual Psychotherapy - 30 min Attender: Debbie Wright [facility] 07/03/2020 12:00:00 PM EDT - 07/03/2020 12:00:00 PM EDT [facility] ([facility]) Attender: Debbie Abdul 07/03/2020 12:00:00 AM EDT [facility] ([facility]) Brief Individual Psychotherapy - 30 min Attender: Debbie Barnes [facility] 06/20/2020 03:30:00 AM EDT - 06/20/2020 03:30:00 AM EDT [facility] ([facility]) Attender: Debbie Abdul 06/20/2020 12:00:00 AM EDT [facility] ([facility]) Outpatient Attender: AGATHA LUNA NP [facility] 06/14/2020 04:00:00 AM EDT - 06/14/2020 04:00:00 AM EDT [facility] ([facility]) Attender: AGATHA LUNA NP 06/14/2020 12:00:00 AM EDT [facility] ([facility]) Attender: Debbie Franko 05/31/2020 12:00:00 AM EDT [facility] ([facility]) Brief Individual Psychotherapy - 30 min Attender: Debbie Barnes [facility] 05/30/2020 04:00:00 AM EDT - 05/30/2020 04:00:00 AM EDT [facility] ([facility]) Extended Individual Psychotherapy - 45 min Attender: Debbie Franko [facility] 05/09/2020 03:30:00 AM EST - 05/09/2020 03:30:00 AM EST [facility] ([facility]) Attender: Debbie Abdul 05/09/2020 12:00:00 AM EST [facility] ([facility]) Brief Individual Psychotherapy - 30 min Attender: Debbie Barnes [facility] 04/20/2020 04:00:00 AM EST - 04/20/2020 04:00:00 AM EST [facility] ([facility]) Attender: Debbie Franko 04/20/2020 12:00:00 AM EST [facility] ([facility]) Office Visit Attender: YI ROMAN, RNC -REPAIRER SCREEN CRUSHER [facility] 04/18/2020 02:00:00 PM EST [facility] ([facility]) Outpatient Attender: AGATHA LUNA NP [facility] Dylan marion 04/18/2020 05:30:00 AM EST - 04/18/2020 05:30:00 AM EST [facility] ([facility]) Attender: AGATHA LUNA NP 04/18/2020 12:00:00 AM EST [facility] ([facility]) Hyacinth Ham PA-C: [address], [place] [address], Ph. Attender: Hyacinth HERMAN [facility] 04/14/2020 12:00:00 AM EST LES ([facility]) Hyacinth Ham PA-C: [address], [place] [address], Ph. Attender: Hyacinth HERMAN [facility] 04/14/2020 12:00:00 AM EST L[facility] ([facility]) Hyacinth Ham PA-C: [address], [place] [address], Ph. Attender: Hyacinth HERMAN [facility] 04/14/2020 12:00:00 AM EST L[facility] ([facility]) Hyacinth Ham PA-C: [address], [place] [address], Ph. Attender: Hyacinth HERMAN [facility] 04/14/2020 12:00:00 AM EST [facility] ([facility]) Attender: Debbie Abdul 04/05/2020 12:00:00 AM EST [facility] ([facility]) Extended Individual Psychotherapy - 45 min Attender: Debbie Abdul [facility] Darryl 04/04/2020 04:00:00 AM EST - 04/04/2020 04:00:00 AM EST [facility] ([facility]) Outpatient Attender: AGATHA LUNA NP [facility] Dylan schultz 03/20/2020 04:30:00 AM EST - 03/20/2020 04:30:00 AM EST [facility] ([facility]) Attender: AGATHA LUNA NP 03/20/2020 12:00:00 AM EST [facility] ([facility]) Extended Individual Psychotherapy - 45 min Attender: Debbie Abdul [facility] 03/14/2020 03:00:00 AM EST - 03/14/2020 03:00:00 AM EST [facility] ([facility]) Attender: Debbie Spearus 03/14/2020 12:00:00 AM EST [facility] ([facility]) Office Visit Attender: YI ROMAN, RNC -REPAIRER SCREEN CRUSHER [facility]MP [facility] [place] 03/08/2020 08:30:00 AM EST [facility] ([facility]) Brief Individual Psychotherapy - 30 min Attender: Debbie atkinson [facility] 02/16/2020 03:30:00 AM EST - 02/16/2020 03:30:00 AM EST [facility] ([facility]) Attender: Debbie Abdul 02/16/2020 12:00:00 AM EST [facility] ([facility]) Office Visit Attender: YI ROMAN, RNC -REPAIRER SCREEN CRUSHER CMP [facility] at [place] 02/02/2020 12:30:00 PM EST [facility] ([facility]) Outpatient Attender: AGATHA LUNA NP [facility] 01/31/2020 05:00:00 AM EST - 01/31/2020 05:00:00 AM EST [facility] ([facility]) Extended Individual Psychotherapy - 45 min Attender: Debbie Abdul [facility] 01/31/2020 03:00:00 AM EST - 01/31/2020 03:00:00 AM EST [facility] ([facility]) Attender: AGATHA LUNA NP 01/31/2020 12:00:00 AM EST [facility] ([facility]) Attender: Debbie Abdul 01/31/2020 12:00:00 AM EST [facility] ([facility]) Inpatient Attender: DIONE HENDERSON DO 01/25/2020 07:33:52 AM EST Lab [place] [facility] Office Visit Attender: DIONE HENDERSON DO CMP [facility] at [place] 01/25/2020 03:43:00 AM EST [facility] ([facility]) Inpatient Attender: DIONE HENDERSON DOAdmitter: DIONE DICKEY DO 01/24/2020 05:30:00 AM EST - 01/25/2020 01:01:00 PM EST MORBID OBESTIY E66.01 [facility] MORBID OBESTIY E66.01 Patient discharged. [place] ( in Healthcare facility) Attender: FRANCK HENDERSON DOAdmitter: DIONE HENDERSON DO 01/24/2020 05:30:00 AM EST [facility] Outpatient Attender: DIONE HENDERSON DO 01/19/2020 12:19:48 AM EST Lab [place] [facility]SY WatersC: [address], [place] [address], Ph. Attender: Hyacinth HERMAN [facility] 01/19/2020 12:00:00 AM EST L[facility] ([facility]) Hyacinth Ham PA-C: [address], [place] [address], Ph. Attender: Hyacinth HERMAN [facility] 01/19/2020 12:00:00 AM EST L[facility] ([facility]) Hyacinth Ham PA-C: [address], [place] [address], Ph. Attender: Hyacinth HERMAN [facility] 01/19/2020 12:00:00 AM EST L[facility] ([facility]) Hyacinth Ham PA-C: [address], [place] [address], Ph. Attender: Hyacinth HERMAN [facility] 01/19/2020 12:00:00 AM EST L[facility] ([facility]) Hyacinth Ham PA-C: [address], [place] [address], Ph. Attender: Hyacinth HERMAN [facility] 01/19/2020 12:00:00 AM EST L[facility] ([facility]) Outpatient Attender: DIONE HENDERSON DO 01/18/2020 07 :10:00 PM EST TYPE AND SCREEN [facility] TYPE AND SCREEN Outpatient Attender: YI ROMAN, RNC -REPAIRER SCREEN CRUSHER CMP [facility] [place] 01/18/2020 03:15:00 PM EST [facility] ([facility]) Brief Individual Psychotherapy - 30 min Attender: Debbie atkinson [facility] 01/13/2020 04:30:00 AM EST - 01/13/2020 04:30:00 AM EST [facility] ([facility]) Attender: Debbie Abdul 01/13/2020 12:00:00 AM EST [facility] ([facility]) Outpatient Attender: RADHA NEWTON 01/05/2020 05:09:00 P M EDT [facility] Outpatient Attender: YI ROMAN, RNC -REPAIRER SCREEN CRUSHER CMP [facility] [place] 01/04/2020 04:00:00 PM EDT [facility] ([facility]) Outpatient Attender: AGATHA LUNA NP [facility] [place] 01/03/2020 05:30:00 AM EDT - 01/03/2020 05:30:00 AM EDT [facility] ([facility]) Attender: AGATHA LUNA NP 01/03/2020 12:00:00 AM EDT [facility] ([facility]) Attender: Debbie Abdul 12/24/2019 12:00:00 AM EDT [facility] ([facility]) Brief Individual Psychotherapy - 30 min Attender: Debbie Barnes [facility] 12/23/2019 04:30:00 AM EDT - 12/23/2019 04:30:00 AM EDT [facility] ([facility]) Outpatient Attender: ALICE HERMAN [id number] 12/09/2019 1 2:00:00 AM EDT Malignant neoplasm of thyroid gland [facility] Malignant neoplasm of thyroid gland [id number]"Psychotherapy Attender: Debbie Abdul [facility] 12/08/2019 03:00:00 AM EDT - 12/08/2019 03:00:00 AM EDT [facility] ([facility]) Attender: Debbie Abdul 12/08/2019 12:00:00 AM EDT [facility] ([facility]) Outpatient Attender: RADHA NEWTON 12/07/2019 04:31:00 P M EDT [facility] Outpatient Attender: YI ELLIOTT BS, RNC -REPAIRER SCREEN CRUSHER CMP [facility] [place] 12/06/2019 04:00:00 PM EDT [facility] ([facility]) Functional Status Immunizations Vaccine Date Status Description Data Source(s) COVID-19 VACCINE Pfizer 06/09/2020 12:00:00 AM EDT completed [place] Vaccine Series Complete: YESThis Data wa s Submitted to [facility] Via [facility]. COVID-19, mRNA, LNP-S, PF, 100 mcg/0.5 mL dose (Modern a) 05/19/2020 12:00:00 AM EST completed 05/19/2020 [facility] ([facility]) COVID-19, mRNA, LNP-S, PF, 100 mcg/0.5 mL dose 05/19/2020 12 :00:00 AM EST completed 05/19/2020 [facility] ([facility]) COVID-19, mRNA, LNP-S, PF, 100 mcg/0.5 mL dose 05/19/2020 12 :00:00 AM EST completed 05/19/2020 [facility] ([facility]) COVID-19 VACCINE Pfizer 05/19/2020 12:00:00 AM EST completed [place] Vaccine Series Complete: NOThis Data was Submitted to [facility] Via [facility]. New in 2012. IIV4 12/09/2019 12:00:00 AM EDT completed 12/09/19 MONDAMIN ([facility]) New in 2012. IIV4 12/09/2019 12:00:00 AM EDT completed 12/09/19 [facility]AM[facility] ([facility]) New in 2012. IIV4 12/09/2019 12:00:00 AM EDT completed 12/09/19 20 [facility] ([facility]) Medications Medication Brand Name Start Date Product Form Dose Route Admi nistrative Instructions Pharmacy Instructions Status Indications Reaction Description Data Source(s) Nystatin 100 UNT/MG Topical Powder Nystatin 10/02/2020 12:00:00 AM EDT active [facility] ([facility]) Hydroxyzine Hydrochloride 25 MG Oral Tablet hydroxyzine HCl 05/17/2020 12:00:00 AM EST 25 mg by mouth completed <td ID="MedicationRxNorm_3">426049</td><td ID="MedicationMedication_3">hydroxyzine HCl</td><td ID="MedicationRoute_3">by mouth</td><td ID="MedicationRouteConcept_3">R07785</td><td ID="MedicationStartDate_3">05/17/2020</td><td ID="MedicationStopDate_3">09/12/2020</td><td ID="MedicationDosageFrequency_3">at bedtime</td><td ID="MedicationDuration_3">30</td><td ID="MedicationFormulaStrength_3">25 mg</td><td ID="MedicationDosageForm_3">tablet</td><td ID="MedicationDosageFormCode_3"></td><td ID="MedicationDosageDescription_3"></td><td ID="MedicationMedicationId_3">[id number]</td><td ID="MedicationAccount_3">[id number]</td><td ID="MedicationNpid_3">[id number]</td><td ID="MedicationAuthorFirstName_3">Agatha</td><td ID="MedicationAuthorLastName_3">Guero</td><td ID="MedicationTaxonomyCode_3">[id number]</td><td ID="MedicationTaxonomyDesc_3">Nurse Practitioner</td><td ID="MedicationPhoneNumber_3">[phone]</td> [facility] ([facility]) Hydroxyzine Hydrochloride 25 MG Oral Tablet hydroxyzine HCl 05/17/2020 12:00:00 AM EST 25 mg by mouth completed <td ID="MedicationRxNorm_2">918891</td><td ID="MedicationMedication_2">hydroxyzine HCl</td><td ID="MedicationRoute_2">by mouth</td><td ID="MedicationRouteConcept_2">U83147</td><td ID="MedicationStartDate_2">05/17/2020</td><td ID="MedicationStopDate_2">09/12/2020</td><td ID="MedicationDosageFrequency_2">at bedtime</td><td ID="MedicationDuration_2">30</td><td ID="MedicationFormulaStrength_2">25 mg</td><td ID="MedicationDosageForm_2">tablet</td><td ID="MedicationDosageFormCode_2"></td><td ID="MedicationDosageDescription_2"></td><td ID="MedicationMedicationId_2">[id number]</td><td ID="MedicationAccount_2">[id number]</td><td ID="MedicationNpid_2">[id number]</td><td ID="MedicationAuthorFirstName_2">Agatha</td><td ID="MedicationAuthorLastName_2">Guero</td><td ID="MedicationTaxonomyCode_2">[id number]</td><td ID="MedicationTaxonomyDesc_2">Nurse Practitioner</td><td ID="MedicationPhoneNumber_2">[phone]</td> [facility] ([facility]) Hydroxyzine Hydrochloride 25 MG Oral Tablet hydroxyzine HCl 05/17/2020 12:00:00 AM EST 25 mg by mouth completed <td ID="MedicationRxNorm_1">083355</td><td ID="MedicationMedication_1">hydroxyzine HCl</td><td ID="MedicationRoute_1">by mouth</td><td ID="MedicationRouteConcept_1">H16394</td><td ID="MedicationStartDate_1">05/17/2020</td><td ID="MedicationStopDate_1">09/12/2020</td><td ID="MedicationDosageFrequency_1">at bedtime</td><td ID="MedicationDuration_1">30</td><td ID="MedicationFormulaStrength_1">25 mg</td><td ID="MedicationDosageForm_1">tablet</td><td ID="MedicationDosageFormCode_1"></td><td ID="MedicationDosageDescription_1"></td><td ID="MedicationMedicationId_1">[id number]</td><td ID="MedicationAccount_1">[id number]</td><td ID="MedicationNpid_1">[id number]</td><td ID="MedicationAuthorFirstName_1">Agatha</td><td ID="MedicationAuthorLastName_1">Guero</td><td ID="MedicationTaxonomyCode_1">[id number]</td><td ID="MedicationTaxonomyDesc_1">Nurse Practitioner</td><td ID="MedicationPhoneNumber_1">[phone]</td> [facility] ([facility]) lamotrigine 25 MG Oral Tablet lamotrigine 05/17/2020 12:00:00 AM EST 25 mg by mouth completed <td ID="Medica tionRxNorm_1">650596</td><td ID="MedicationMedication_1">lamotrigine</td><td ID="MedicationRoute_1">by mouth</td><td ID="MedicationRouteConcept_1">D34901</td><td ID="MedicationStartDate_1">05/17/2020</td><td ID="MedicationStopDate_1">07/14/2020</td><td ID="MedicationDosageFrequency_1">once a day</td><td ID="MedicationDuration_1">30</td><td ID="MedicationFormulaStrength_1">25 mg</td><td ID="MedicationDosageForm_1">tablet</td><td ID="MedicationDosageFormCode_1"></td><td ID="MedicationDosageDescription_1"></td><td ID="MedicationMedicationId_1">[id number]</td><td ID="MedicationAccount_1">[id number]</td><td ID="MedicationNpid_1">[id number]</td><td ID="MedicationAuthorFirstName_1">Agatha</td><td ID="MedicationAuthorLastName_1">Guero</td><td ID="MedicationTaxonomyCode_1">[id number]</td><td ID="MedicationTaxonomyDesc_1">Nurse Practitioner</td><td ID="MedicationPhoneNumber_1">[phone]</td> [facility] ([facility]) Calcium Carbonate 1250 MG / Cholecalciferol 0.01 MG Oral Tab let Calcium 500 +D 04/18/2020 12:00:00 AM EST ORAL active [facility] ([facility]) Childrens Chewable Multivitamin With Iron 04/18/2020 12:00:0 0 AM EST ORAL active [facility] ([facility]) Vitamin B 12 1 MG Oral Tablet [facility] Vitamin B12 04/18/2020 12:00:[address] active [facility] ([facility]) lamotrigine 25 MG Oral Tablet lamotrigine 04/18/2020 12:00:00 AM EST 25 mg by mouth completed <td ID="Medica tionRxNorm_2">076027</td><td ID="MedicationMedication_2">lamotrigine</td><td ID="MedicationRoute_2">by mouth</td><td ID="MedicationRouteConcept_2">M66516</td><td ID="MedicationStartDate_2">04/18/2020</td><td ID="MedicationStopDate_2">05/18/2020</td><td ID="MedicationDosageFrequency_2">once a day</td><td ID="MedicationDuration_2">30</td><td ID="MedicationFormulaStrength_2">25 mg</td><td ID="MedicationDosageForm_2">tablet</td><td ID="MedicationDosageFormCode_2"></td><td ID="MedicationDosageDescription_2"></td><td ID="MedicationMedicationId_2">[id number]</td><td ID="MedicationAccount_2">[id number]</td><td ID="MedicationNpid_2">[id number]</td><td ID="MedicationAuthorFirstName_2">Agatha</td><td ID="MedicationAuthorLastName_2">Guero</td><td ID="MedicationTaxonomyCode_2">[id number]</td><td ID="MedicationTaxonomyDesc_2">Nurse Practitioner</td><td ID="MedicationPhoneNumber_2">[phone]</td> [facility] ([facility]) vilazodone hydrochloride 20 MG Oral Tablet [Viibryd] Viibryd 03/20/2020 12:00:00 AM EST 20 mg by mouth completed <td ID="MedicationRxNorm_3">2263797</td><td ID="MedicationMedication_3">Viibryd</td><td ID="MedicationRoute_3">by mouth</td><td ID="MedicationRouteConcept_3">A83582</td><td ID="MedicationStartDate_3">03/20/2020</td><td ID="MedicationStopDate_3">06/17/2020</td><td ID="MedicationDosageFrequency_3">every morning</td><td ID="MedicationDuration_3">30</td><td ID="MedicationFormulaStrength_3">20 mg</td><td ID="MedicationDosageForm_3">tablet</td><td ID="MedicationDosageFormCode_3"></td><td ID="MedicationDosageDescription_3"> </td><td ID="MedicationMedicationId_3">[id number]</td><td ID="MedicationAccount_3">[id number]</td><td ID="MedicationNpid_3">[id number]</td><td ID="MedicationAuthorFirstName_3">Agatha</td><td ID="MedicationAuthorLastName_3">Guero</td><td ID="MedicationTaxonomyCode_3">[id number]</td><td ID="MedicationTaxonomyDesc_3">Nurse Practitioner</td><td ID="MedicationPhoneNumber_3">[phone]</td> [facility] ([facility]) vilazodone hydrochloride 20 MG Oral Tablet [Viibryd] Viibryd 03/20/2020 12:00:00 AM EST 20 mg by mouth completed <td ID="MedicationRxNorm_2">4044215</td><td ID="MedicationMedication_2">Viibryd</td><td ID="MedicationRoute_2">by mouth</td><td ID="MedicationRouteConcept_2">H61912</td><td ID="MedicationStartDate_2">03/20/2020</td><td ID="MedicationStopDate_2">08/13/2020</td><td ID="MedicationDosageFrequency_2">every morning</td><td ID="MedicationDuration_2">30</td><td ID="MedicationFormulaStrength_2">20 mg</td><td ID="MedicationDosageForm_2">tablet</td><td ID="MedicationDosageFormCode_2"></td><td ID="MedicationDosageDescription_2"> </td><td ID="MedicationMedicationId_2">[id number]</td><td ID="MedicationAccount_2">[id number]</td><td ID="MedicationNpid_2">[id number]</td><td ID="MedicationAuthorFirstName_2">Agatha</td><td ID="MedicationAuthorLastName_2">Guero</td><td ID="MedicationTaxonomyCode_2">[id number]</td><td ID="MedicationTaxonomyDesc_2">Nurse Practitioner</td><td ID="MedicationPhoneNumber_2">[phone]</td> [facility]) vilazodone hydrochloride 20 MG Oral Tablet [Viibryd] Viibryd 03/20/2020 12:00:00 AM EST 20 mg by mouth completed <td ID="MedicationRxNorm_1">0466566</td><td ID="MedicationMedication_1">Viibryd</td><td ID="MedicationRoute_1">by mouth</td><td ID="MedicationRouteConcept_1">Y53840</td><td ID="MedicationStartDate_1">03/20/2020</td><td ID="MedicationStopDate_1">08/13/2020</td><td ID="MedicationDosageFrequency_1">every morning</td><td ID="MedicationDuration_1">30</td><td ID="MedicationFormulaStrength_1">20 mg</td><td ID="MedicationDosageForm_1">tablet</td><td ID="MedicationDosageFormCode_1"></td><td ID="MedicationDosageDescription_1"> </td><td ID="MedicationMedicationId_1">[id number]</td><td ID="MedicationAccount_1">[id number]</td><td ID="MedicationNpid_1">[id number]</td><td ID="MedicationAuthorFirstName_1">Agatha</td><td ID="MedicationAuthorLastName_1">Guero</td><td ID="MedicationTaxonomyCode_1">[id number]</td><td ID="MedicationTaxonomyDesc_1">Nurse Practitioner</td><td ID="MedicationPhoneNumber_1">[phone]</td> [facility] ([facility]) Levothyroxine Sodium 0.2 MG Oral Tablet Levothyroxine Sodium 200 MCG Oral Tablet (SYNTHROID) Levothyroxine Sodium 200 MCG Oral Tablet (SYNTHROID) 1 12:00:00 AM EDT 200 ug Oral active Take 1 t ablet by mouth daily [facility] Hydroxyzine Hydrochloride 25 MG Oral Tablet hydroxyzine HCl 12/07/2019 12:00:00 AM EDT 25 mg by mouth completed <td ID="MedicationRxNorm_3">428644</td><td ID="MedicationMedication_3">hydroxyzine HCl</td><td ID="MedicationRoute_3">by mouth</td><td ID="MedicationRouteConcept_3">B18119</td><td ID="MedicationStartDate_3">12/07/2019</td><td ID="MedicationStopDate_3">06/18/2020</td><td ID="MedicationDosageFrequency_3">three times a day</td><td ID="MedicationDuration_3">30</td><td ID="MedicationFormulaStrength_3">25 mg</td><td ID="MedicationDosageForm_3">tablet</td><td ID="MedicationDosageFormCode_3"></td><td ID="MedicationDosageDescription_3">as needed</td><td ID="MedicationMedicationId_3">[id number]</td><td ID="MedicationAccount_3">[id number]</td><td ID="MedicationNpid_3">[id number]</td><td ID="MedicationAuthorFirstName_3">Agatha</td><td ID="MedicationAuthorLastName_3">Guero</td><td ID="MedicationTaxonomyCode_3">[id number]</td><td ID="MedicationTaxonomyDesc_3">Nurse Practitioner</td><td ID="MedicationPhoneNumber_3">[phone]</td> [facility] ([facility]) Hydroxyzine Hydrochloride 25 MG Oral Tablet hydroxyzine HCl 12/07/2019 12:00:00 AM EDT 25 mg by mouth completed <td ID="MedicationRxNorm_2">215236</td><td ID="MedicationMedication_2">hydroxyzine HCl</td><td ID="MedicationRoute_2">by mouth</td><td ID="MedicationRouteConcept_2">A39027</td><td ID="MedicationStartDate_2">12/07/2019</td><td ID="MedicationStopDate_2">02/02/2020</td><td ID="MedicationDosageFrequency_2">three times a day</td><td ID="MedicationDuration_2">30</td><td ID="MedicationFormulaStrength_2">25 mg</td><td ID="MedicationDosageForm_2">tablet</td><td ID="MedicationDosageFormCode_2"></td><td ID="MedicationDosageDescription_2">as needed</td><td ID="MedicationMedicationId_2">[id number]</td><td ID="MedicationAccount_2">[id number]</td><td ID="MedicationNpid_2">[id number]</td><td ID="MedicationAuthorFirstName_2">Agatha</td><td ID="MedicationAuthorLastName_2">Guero</td><td ID="MedicationTaxonomyCode_2">[id number]</td><td ID="MedicationTaxonomyDesc_2">Nurse Practitioner</td><td ID="MedicationPhoneNumber_2">[phone]</td> [facility] ([facility]) Hydroxyzine Hydrochloride 25 MG Oral Tablet hydroxyzine HCl 12/07/2019 12:00:00 AM EDT 25 mg by mouth completed <td ID="MedicationRxNorm_1">907373</td><td ID="MedicationMedication_1">hydroxyzine HCl</td><td ID="MedicationRoute_1">by mouth</td><td ID="MedicationRouteConcept_1">Q10952</td><td ID="MedicationStartDate_1">12/07/2019</td><td ID="MedicationStopDate_1"></td><td ID="MedicationDosageFrequency_1">three times a day</td><td ID="MedicationDuration_1">30</td><td ID="MedicationFormulaStrength_1">25 mg</td><td ID="MedicationDosageForm_1">tablet</td><td ID="MedicationDosageFormCode_1"></td><td ID="MedicationDosageDescription_1">as needed</td><td ID="MedicationMedicationId_1">[id number]</td><td ID="MedicationAccount_1">[id number]</td><td ID="MedicationNpid_1">[id number]</td><td ID="MedicationAuthorFirstName_1">Agatha</td><td ID="MedicationAuthorLastName_1">Guero</td><td ID="MedicationTaxonomyCode_1">[id number]</td><td ID="MedicationTaxonomyDesc_1">Nurse Practitioner</td><td ID="MedicationPhoneNumber_1">[phone]</td> [facility] ([facility]) topiramate 50 MG Oral Tablet [Topamax] Topamax 09/14/2019 12:0 0:00 AM EDT 50 mg by mouth completed <td ID="Me dicationRxNorm_2">302480</td><td ID="MedicationMedication_2">Topamax</td><td ID="MedicationRoute_2">by mouth</td><td ID="MedicationRouteConcept_2">P59486</td><td ID="MedicationStartDate_2">09/14/2019</td><td ID="MedicationStopDate_2">06/18/2020</td><td ID="MedicationDosageFrequency_2">at bedtime</td><td ID="MedicationDuration_2">30</td><td ID="MedicationFormulaStrength_2">50 mg</td><td ID="MedicationDosageForm_2">tablet</td><td ID="MedicationDosageFormCode_2"></td><td ID="MedicationDosageDescription_2"></td><td ID="MedicationMedicationId_2">[id number]</td><td ID="MedicationAccount_2">[id number]</td><td ID="MedicationNpid_2">[id number]</td><td ID="MedicationAuthorFirstName_2">Agatha</td><td ID="MedicationAuthorLastName_2">Guero</td><td ID="MedicationTaxonomyCode_2">[id number]</td><td ID="MedicationTaxonomyDesc_2">Nurse Practitioner</td><td ID="MedicationPhoneNumber_2">[phone]</td> [facility] topiramate 50 MG Oral Tablet [Topamax] Topamax 09/14/2019 12:0 0:00 AM EDT 50 mg by mouth completed <td ID="Me dicationRxNorm_3">790823</td><td ID="MedicationMedication_3">Topamax</td><td ID="MedicationRoute_3">by mouth</td><td ID="MedicationRouteConcept_3">C10502</td><td ID="MedicationStartDate_3">09/14/2019</td><td ID="MedicationStopDate_3">03/03/2020</td><td ID="MedicationDosageFrequency_3">at bedtime</td><td ID="MedicationDuration_3">30</td><td ID="MedicationFormulaStrength_3">50 mg</td><td ID="MedicationDosageForm_3">tablet</td><td ID="MedicationDosageFormCode_3"></td><td ID="MedicationDosageDescription_3"></td><td ID="MedicationMedicationId_3">[id number]</td><td ID="MedicationAccount_3">[id number]</td><td ID="MedicationNpid_3">[id number]</td><td ID="MedicationAuthorFirstName_3">Agatha</td><td ID="MedicationAuthorLastName_3">Guero</td><td ID="MedicationTaxonomyCode_3">[id number]</td><td ID="MedicationTaxonomyDesc_3">Nurse Practitioner</td><td ID="MedicationPhoneNumber_3">[phone]</td> [facility] ([facility]) topiramate 50 MG Oral Tablet [Topamax] Topamax 09/14/2019 12:0 0:00 AM EDT 50 mg by mouth completed <td ID="Me dicationRxNorm_1">645605</td><td ID="MedicationMedication_1">Topamax</td><td ID="MedicationRoute_1">by mouth</td><td ID="MedicationRouteConcept_1">A76707</td><td ID="MedicationStartDate_1">09/14/2019</td><td ID="MedicationStopDate_1">03/03/2020</td><td ID="MedicationDosageFrequency_1">at bedtime</td><td ID="MedicationDuration_1">30</td><td ID="MedicationFormulaStrength_1">50 mg</td><td ID="MedicationDosageForm_1">tablet</td><td ID="MedicationDosageFormCode_1"></td><td ID="MedicationDosageDescription_1"></td><td ID="MedicationMedicationId_1">[id number]</td><td ID="MedicationAccount_1">[id number]</td><td ID="MedicationNpid_1">[id number]</td><td ID="MedicationAuthorFirstName_1">Agatha</td><td ID="MedicationAuthorLastName_1">Guero</td><td ID="MedicationTaxonomyCode_1">[id number]</td><td ID="MedicationTaxonomyDesc_1">Nurse Practitioner</td><td ID="MedicationPhoneNumber_1">[phone]</td> [facility] ([facility]) Acetaminophen 325 MG / Oxycodone Hydroch loride 5 MG Oral Tablet oxyCODONE- Acetaminophen 5-325 MG Oral Tablet (PERCOCET) oxyCODONE-Acetaminophen 5-325 MG Oral Tablet (PERCOCET) 08/13/2019 12:00:00 AM EDT aborted TAKE 1 TO 2 TABLETS BY MOUTH EVERY 6 HOURS NEEDED FOR PAIN . DO NOT EXCEED 6 PER 24 HOURS [facility] Levothyroxine Sodium 0.2 MG Oral Tablet levothyroxine (SYNTHROID, LEVOTHROID) 200 MCG tablet levothyroxine (SYNTHROID, LEVOTHROID) 200 MCG tablet 0 08/19/2018 12:00:00 AM EDT aborted TAKE 1 TABLET BY MOUTH ONCE DAILY [facility] 24 HR venlafaxine 75 MG Extended Release Oral Capsule venlafaxine (EFFEXOR-XR) 75 MG 24 hr capsule venlafaxine (EFFEXOR-XR) 75 MG 24 hr capsule 7 12:00:00 AM EDT 75 mg Oral aborted Take 75 mg by mouth daily [facility] Cholecalciferol 1000 UNT Oral Capsule Ch olecalciferol (VITAMIN D-3) 1000 UNITS CAPS Cholecalciferol (VITAMIN D-3) 1000 UNITS CAPS 06/04/2013 12:00:0 0 AM EDT 1000 {capsule} Oral aborted Vitamin D deficiency Take 1,000 capsules by mouth daily. [facility] Vitamin D deficiency buspirone hydrochloride 10 MG Oral Tablet buspirone 10 mg tablet buspirone 10 mg tablet completed buspirone hydr ochloride 10 MG Oral Tablet LES ([facility]) Oxycodone Hydrochloride 5 MG Oral Tablet oxycodone 5 mg tablet TAKE 1 TABLET BY MOUTH EVERY 6 HOURS NEEDED FOR PAIN . DO NOT EXCEED 4 PER 24 HOURS oxycodone 5 mg tablet TAKE 1 TABLET BY MOUTH EVERY 6 HOURS NEEDED FOR PAIN . DO NOT EXCEED 4 PER 24 HOURS completed oxycodone hydrochloride 5 MG Oral Tablet LES ([facility]) Sertraline 50 MG Oral Tablet sertraline 50 mg tablet sertraline 50 mg tablet completed sertraline 50 MG Oral Tablet LES ([facility]) Amoxicillin 500 MG Oral Capsule amoxicil wilbert 500 mg capsule TAKE 1 CAPSULE BY MOUTH EVERY 12 HOURS FOR 10 DAYS amoxicillin 500 mg capsule TAKE 1 CAPSUL E BY MOUTH EVERY 12 HOURS FOR 10 DAYS compl eted amoxicillin 500 MG Oral Capsule LES ([facility] er) Oxycodone Hydrochloride 5 MG Oral Tablet oxycodone 5 mg tablet TAKE 1 TABLET BY MOUTH EVERY 6 HOURS NEEDED FOR PAIN . DO NOT EXCEED 4 PER 24 HOURS oxycodone 5 mg tablet TAKE 1 TABLET BY MOUTH EVERY 6 HOURS NEEDED FOR PAIN . DO NOT EXCEED 4 PER 24 HOURS completed oxycodone hydrochloride 5 MG Oral Tablet LES ([facility]) 24 HR Bupropion Hydrochloride 150 MG [...] 150 MG Extended Release Oral Tablet LES ([facility]) Ibuprofen 800 MG Oral Tablet ibuprofen 8 00 mg tablet TAKE 1 TABLET BY MOUTH EVERY 8 HOURS NEEDED FOR PAIN ibuprofen 800 mg tablet TAKE 1 TABLET BY MOUTH EVERY 8 HOURS NEEDED FOR PAIN compl eted ibuprofen 800 MG Oral Tablet LES ([facility]) Prednisone 20 MG Oral Tablet prednisone 20 mg tablet TAKE 2 TABLETS BY MOUTH IN THE MORNING FOR 5 DAYS prednisone 20 mg tablet TAKE 2 TABLETS B Y MOUTH IN THE MORNING FOR 5 DAYS completed pre dnisone 20 MG Oral Tablet LES ([facility]) Acetaminophen 325 MG / Oxycodone Hydroch loride 5 MG Oral Tablet oxycodone- acetaminophen 5 mg-325 mg tablet oxycodone-acetaminophen 5 mg-325 mg tablet completed acetaminop hen 325 MG / oxycodone hydrochloride 5 MG Oral Tablet LES ([facility]) Amoxicillin 500 MG Oral Capsule amoxicil wilbert 500 mg capsule TAKE 2 CAPSULES BY MOUTH ONCE DAILY amoxicillin 500 mg capsule TAKE 2 CAPSULES BY MOUTH ON CE DAILY completed amoxicillin 50 0 MG Oral Capsule [facility] ([facility]) Omeprazole 40 MG Delayed Release Oral Ca psule omeprazole 40 mg capsule,delayed release TAKE 1 CAPSULE BY MOUTH ONCE DAILY omeprazole 40 mg capsule,delayed release TAKE 1 CAPSULE BY MOUTH ONCE DAILY completed omeprazole 40 MG Delayed Release Oral Capsule [facility] ([facility]) aripiprazole 5 MG Oral Tablet aripiprazo le 5 mg tablet TAKE 1 TABLET BY MOUTH AT BEDTIME aripiprazole 5 mg tablet TAKE 1 TABLET BY MOUTH AT BEDTIME completed aripiprazole 5 MG Oral Tablet AT [facility] ([facility]) Sertraline 50 MG Oral Tablet sertraline 50 mg tablet sertraline 50 mg tablet completed sertraline 50 MG Oral Tablet LES ([facility]) Ibuprofen 800 MG Oral Tablet ibuprofen 8 00 mg tablet TAKE 1 TABLET BY MOUTH EVERY 8 HOURS NEEDED FOR PAIN ibuprofen 800 mg tablet TAKE 1 TABLET BY MOUTH EVERY 8 HOURS NEEDED FOR PAIN compl eted ibuprofen 800 MG Oral Tablet LES ([facility]) lamotrigine 25 MG Oral Tablet lamotrigine 25 mg tablet lamot rigine 25 mg tablet completed lamotrigine 25 MG Oral Tablet [facility] ([facility]) vilazodone hydrochloride 10 MG Oral Tabl et [Viibryd] Viibryd 10 mg tablet TAKE 1 TABLET BY MOUTH ONCE DAILY IN THE MORNING Viibryd 10 mg tablet TAKE 1 TABLET BY MOUTH ONCE DAILY IN THE MORNING compl eted vilazodone hydrochloride 10 MG Oral Tablet [Viibryd] [facility] ([facility]) 24 HR Bupropion Hydrochloride 150 MG Ext [...] 150 MG Extended Release Oral Tablet LES ([facility]) 24 HR Bupropion Hydrochloride 150 MG Ext [...] hydrochloride 150 MG Extended Release Oral Tablet [facility] ([facility]) Sertraline 50 MG Oral Tablet sertraline 50 mg tablet sertraline 50 mg tablet completed sertraline 50 MG Oral Tablet [facility] ([facility]) 24 HR Bupropion Hydrochloride 300 MG [...] hydrochloride 300 MG Extended Release Oral Tablet [facility] ([facility]) vilazodone hydrochloride 10 MG Oral Tabl et [Viibryd] Viibryd 10 mg tablet TAKE 1 TABLET BY MOUTH ONCE DAILY IN THE MORNING Viibryd 10 mg tablet TAKE 1 TABLET BY MOUTH ONCE DAILY IN THE MORNING compl eted vilazodone hydrochloride 10 MG Oral Tablet [Viibryd] LES ([facility]) Ondansetron 4 MG Disintegrating Oral Tab let ondansetron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 Psychotherapy - 30 min 02/16/2020 12:00:00 AM EST - 02/16/2020 12:00:00 AM EST [facility] ([facility]) Brief Individual Psychotherapy - 30 min 02/16/2020 12: 00:00 AM EST [facility] ([facility]) MHC Telemed E/M Lvl 3--Est pt 01/31/2020 12:00:00 AM EST - 01/31/2020 12:00:00 AM EST [facility] ([facility]) MHC Telemed E/M Lvl 3--Est pt 01/31/2020 12:00:[address] [facility] ([facility]) Extended Individual Psychotherapy - 45 min 01/31/2020 12:00:00 AM EST - 01/31/2020 12:00:00 AM EST [facility] ([facility]) Extended Individual Psychotherapy - 45 min 12:00:00 AM EST [facility] ([facility]) Laparoscopic Sleeve Gastrectomy 01/24/2020 12:00:00 AM EST LES ([facility]) Laparoscopic Sleeve Gastrectomy 01/24/2020 12:00:00 AM EST LES ([facility]) Laparoscopic Sleeve Gastrectomy 01/24/2020 12:00:00 AM EST LES ([facility]) Laparoscopic Sleeve Gastrectomy 01/24/2020 12:00:00 AM EST LES ([facility]) LAPS GSTRC RSTRICTIV PX LONGITUDINAL GASTRECTOMY 01/23 12:00:00 AM EST MEDENT ([facility]) Brief Individual Psychotherapy - 30 min 01/13/2020 12:00:00 AM EST - 01/13/2020 12:00:00 AM EST [facility] ([facility]) Brief Individual Psychotherapy - 30 min 01/13/2020 12: 00:00 AM EST [facility] ([facility]) OFFICE OUTPATIENT VISIT 15 MINUTES 01/02 12:00:00 AM EDT - 01/03/2020 12:00:00 AM EDT [facility] ([facility]) OFFICE OUTPATIENT VISIT 15 MINUTES 01/03/2020 12:00:00 AM EDT [facility] ([facility]) Brief Individual Psychotherapy - 30 min 12/24/2019 12:00:00 AM EDT - 12/24/2019 12:00:00 AM EDT [facility] ([facility]) Brief Individual Psychotherapy - 30 min 12/23/2019 12: 00:00 AM EDT [facility] ([facility]) [id number]"Psychotherapy 0 12:00:00 AM EDT - 12/08/2019 12:00:00 AM EDT [facility] ([facility]) [id number]"Psychotherapy 12/08/2019 12:00:00 AM EDT [facility] ([facility]) Results ID Date Data Source [id number] 12/28/2020 04:26:04 PM EDT [facility] Name Value Range Interpretation Code Description Data Shari rce(s) Supporting Document(s) Progress Note [facility] YBUHYg3uToVEGaDz96/JIAasVHZdi3GaLEmjGGb4JSwgOCVkW1JjSZA8bQ0nZRF9EJbXSfZhXrVwIXRf lbm ZhSiqGYtGgJJJfChnDWuXgSTooDvheuFCoPL1ZgCX1YGElC30iBRNxQYWyQ6SuMKB0WgN+Rk4VIQBewA WvSN2WNxyDrJksm8q8DW8+YP+MvLNuVZMKTPHNTuOSD4dxvnOzJegHHqeIlJMSj7fIiymmxh6kwsV5C+ DVa3LFpLWKBE0j5xpMMmt1+7JXk7RlUTa3v83EfNIy Gfv+R6nnUhAfq61hSoSSqBmWlp1mk+T/6lT4PW7NdtaacFjvXy+QSh72YRnqU210+joZZ/k+d6ks4tqP baNot59jDe5Y0YAMpaC2mZo9/CalIZh4nNH9O/n4uYoZ7TjtLFlytSsQ1m8Ru6ykX5zygMfgIK6KKdvr BHI9osnUso9dlUADV5oV1BwjioHsXMtnNDyjaMwwr4 rmyzKppnzWLay8EUnlfoVxUucfCV+nwqb5mW+M5u4iI+XwmYMjjqdazKnCCyLqKoJKjA2lKNJwg7UvQn FriMFaH7L/UhgaHjkdCSjVu7x9mj42pWwaM/3WpFrnwM3bZU/xIFT5RIzWnVOUzKq8Rw08ajuUZF81nF sp7FWRvJcwW2H312hlfXXJoHrb39pljPnI6aEJ5U5X in0GUmxko4wXiSLi03Wohy9/xQa/Km0TT9ufH3YZdyf11E4IGpyBCeq2z+TBge+rrndlYd3959B423py VS6jYh207wRIps70cbeqT+cQYdxmUD+2aMp3dtBJds5R9vI0IyI8pgXyUlPKoXDjKJUXMKoeINwyFHHC CEVFV4wcCPLFAnYezOoxKXGJhJbEobQp0JDCExSscB AIMbyBHO5wjy/og0e96dQ2jNYRGaga/ciGE/lmxZxrTtY9SlC8beQfDh1rwZ95j3Fo6yAl3QvJtYvlav /f7deE0Ajtv0icaJwuAowlTt9j+6x/mVwNFf6Dh8RIU9l+nTassU0GKfGpmCrqavtlcBp8NTiAnpLw+H UEZ0YsL8XwBfjkoR/tRocBqfxIpNpI6EPHQ5iGGoRf hjQFoE6Csnwc9ogbmpesAm5lLOu2eZqdZM3Vn/QFQOCUsNTwrXfWRATxBLX3nDHj3GT5WbwPn59eVZo3 YEAO4pJ4+7U5PrsPUtDPpzTthWE+KHSiRtcAyf12ZZNCVdd9XPEPv2NYyEGrGElPpXaw+QE1R6vfSNGb NUtA8AMEhtdiiRRe/Mmdhd8UozQCLq5tm3ku8c6Cxf eCv07zx/VG19ry3RffnXL++uFtVP2Ya6aW07eoc23Ca/CIq2a/wv1VcHP0WWEJyYyfWBDpAQGyACpyx0 +Jaimee+/oOAf5olYwB9wCHVUs74bChXGnn9TicNlTwcjj5ky9E+3/EVhk3/VjFzaGts1WssTCuco9/Ew8 [file] E+DQogICAgICAgICAgICAgICAgICAgICAgICAgICAgICAgICAgICAgICAgICAgICAgICAgICAgICAgIC AgICAgICAgICAgICAgICAgICAgICAgICAgICAgICAgICAgICAgICAgICAgDQogICAgICAgICAgICAgIC AgICAgICAgICAgICAgICAgICAgICAgICAgICAgICAg ICAgICAgICAgICAgICAgICAgICAgICAgICAgICAgICAgICAgICAgICAgICAgICAgICAgICAgDQogICAg ICAgICAgICAgICAgICAgICAgICAgICAgICAgICAgICAgICAgICAgICAgICAgICAgICAgICAgICAgICAg ICAgICAgICAgICAgICAgICAgICAgICAgICAgICAgIC AgICAgDQogICAgICAgICAgICAgICAgICAgICAgICAgICAgICAgICAgICAgICAgICAgICAgICAgICAgIC AgICAgICAgICAgICAgICAgICAgICAgICAgICAgICAgICAgICAgICAgICAgICAgDQogICAgICAgICAgIC AgICAgICAgICAgICAgICAgICAgICAgICAgICAgICAg ICAgICAgICAgICAgICAgICAgICAgICAgICAgICAgICAgICAgICAgICAgICAgICAgICAgICAgICAgDQog ICAgICAgICAgICAgICAgICAgICAgICAgICAgICAgICAgICAgICAgICAgICAgICAgICAgICAgICAgICAg ICAgICAgICAgICAgICAgICAgICAgICAgICAgICAgIC AgICAgICAgDQogICAgICAgICAgICAgICAgICAgICAgICAgICAgICAgICAgICAgICAgICAgICAgICAgIC AgICAgICAgICAgICAgICAgICAgICAgICAgICAgICAgICAgICAgICAgICAgICAgICAgDQogICAgICAgIC AgICAgICAgICAgICAgICAgICAgICAgICAgICAgICAg ICAgICAgICAgICAgICAgICAgICAgICAgICAgICAgICAgICAgICAgICAgICAgICAgICAgICAgICAgICAg DQogICAgICAgICAgICAgICAgICAgICAgICAgICAgICAgICAgICAgICAgICAgICAgICAgICAgICAgICAg ICAgICAgICAgICAgICAgICAgICAgICAgICAgICAgIC AgICAgICAgICAgDQogICAgICAgICAgICAgICAgICAgICAgICAgICAgICAgICAgICAgICAgICAgICAgIC EnLRRfEIJjBYZfCUNjNGInEUQfZDUlZJCdHZEsQJCtMVBaPPNbEDOqQDYjALXdCOHkTIMeVGe7L5yqEO LjKHCzRY5sMEq6Bp1+DIhHJvUgSXB2nfQaiT5TPU8f i4EyWCalJYWac1BqEYl4IF0YFHVoGTljUQ7WYVjtsf5CAVRzSDXzxSKMc6ubCsLkSNI3RUNoRwufKI1P XZJwU6kvtvZjXWLaZMSZRO0FTvWeO3NxtZ65DSYLVt3+HBzpaeVsXcgFOtF8LLAws4WdKWo3NU3DAQZa Odpjz9CzFmDaVDFOXHfsSH1QEJM6GMOxEDQtQb3AVI XrO678luCzNI7VXm8QXyQdNL1egb0YFtRxKJDqIjlRHrk9TBejOK4YmDSgPDsRki2rgnHejcVPv3Vktb IjfSJOXGJuAU7hLKVYQITcMHPmYBeYFiTtpWRoUH4wKE1rWJCnMDM4MxCiTXEOZU4WBTQcESIszMJqTN KlLCFJCC8SECroEAQ2VPUoslDppELgXRfvVI6NUCYe bnQgMTkgMCBSDQo+Nu3SRB8ck0HqEOmjYORoYT5lhy3OZQdKToEkU1E2rDWwR5L1BGbfPw0BOOAyGUUe DJcnBPFVEMaeRC7AZX1jvsB2IM5AsHKeRPUaCPZudJZbWCp8C42kaXEmICzlBP6MDCG+Lyle+Ae1IYJDe EEZrBSAuGvIeTSAAUiGlO0WlM4GUg1MhG1XyGN00yB zemxIeYZfiDF9ZFO1kCLPyDAHBDY4KoJMafN0oqiNkQGOgAKDTBpYrZ41uvSXyJWHjWYJ7KYCuSk9TMQ JsR0OoolWtoRwzkwYuAACuHFARFG5XHZrwznSozHPwbFkvXX71oBgxHD5WHg9NCkNzYU1cuq1PcDMxJz 7ZYADwVc3IUCFtFNKqWOEtRVI2VBSoNeGjNLrnRTOc OGSwIWT1FBOwAOOrWD7OKoGrAKCaXZhaNaIeDGHwUMCmkn7YTPKvFOVxDEn1LLAwVNBrICCnQCvnICRu XALxZAT8RALiARRcFR9EQuJdXYClUGQ2PZbeNTHtYBIygw6PFFKmPEPeZtAbIiNpIJQwCLKbYAydMGJu CFZkXPEpJPNpMACvUM8SLvXaJHQsLUAiRLamBUSrYH Rqxx8IRSOjIDSkFvOcVKSlTYRyLIKzNVxsDTYfQAU7Hxz4RJSxTMIkIG9ETbSdHMSwQZG8DXhoVSQeGG Tuqo0YILLmDXGhHOt3LSLxZNSwMVZuOZtmIGHaPVI0ALSmWKHkZJAvVS8JJiNtPUWrNHJ5DAJaIENsUZ Ggza7ZQXWcCIJhKvO0HLLkXXLuQCUdDLleOGNyVVN7 CUH2MNRhDBKcHO5OCqDmAHSkSVigVCLbZRQxMKLrsh8HEVRpDRPbMwG1EILbBKDnTJEhTSzvNFAsAMZ5 RAt4VVFbGJWjMP7IWbAcUUZtWEw6NvVfGVNbWCIyef9DDMCvJPRiMJOwDfLjOYEwFJSoGNz6oaVmgCVq GLe0QM7EX9HxpbUkWtNAFi3Fg924UGTiANMgLr0GB5 yoUz9mGGOoHYBPBl7DMDt3GiA9B8UvYZRxUgC6ZoSlEua7SaFzNmklKDXjS3JkXWg+PFnoZjm0DZJ2MT KxZYqpTFQvKLVdESFkBYM8T2F0OOU6CF1gAANZBv0+RLcvxPWuuHgnEMRCLbD4BjX0AWewMGJOCp9H ID Date Data Source [id number] 12/28/2020 04:25:59 PM EDT [facility] Name Value Range Interpretation Code Description Data Shari rce(s) Supporting Document(s) Progress Note [facility] TPDKOz2bWaXGDcJu24/BSIkiHSYcu4HpYZdzREo2XJtoXKIxB4SdNVL8bH7qMLT8PElACwOtRvDjVCKu lbm [file] YZRHff9JBW0Sn6hAF30iQ+IG3Dmnp1rL36Dr3H/[place] [file] ICAgICAgICAgICAgICAgICAgICAgICAgICAgICAgIC AgICAgICAgICAgICAgICAgICAgICAgICAgICAgICAgICAgICANCiAgICAgICAgICAgICAgICAgICAgIC AgICAgICAgICAgICAgICAgICAgICAgICAgICAgICAgICAgICAgICAgICAgICAgICAgICAgICAgICAgIC AgICAgICAgICAgICAgICAgICANCiAgICAgICAgICAg ICAgICAgICAgICAgICAgICAgICAgICAgICAgICAgICAgICAgICAgICAgICAgICAgICAgICAgICAgICAg ICAgICAgICAgICAgICAgICAgICAgICAgICAgICANCiAgICAgICAgICAgICAgICAgICAgICAgICAgICAg ICAgICAgICAgICAgICAgICAgICAgICAgICAgICAgIC AgICAgICAgICAgICAgICAgICAgICAgICAgICAgICAgICAgICAgICANCiAgICAgICAgICAgICAgICAgIC AgICAgICAgICAgICAgICAgICAgICAgICAgICAgICAgICAgICAgICAgICAgICAgICAgICAgICAgICAgIC AgICAgICAgICAgICAgICAgICAgICANCiAgICAgICAg ICAgICAgICAgICAgICAgICAgICAgICAgICAgICAgICAgICAgICAgICAgICAgICAgICAgICAgICAgICAg ICAgICAgICAgICAgICAgICAgICAgICAgICAgICAgICANCiAgICAgICAgICAgICAgICAgICAgICAgICAg ICAgICAgICAgICAgICAgICAgICAgICAgICAgICAgIC AgICAgICAgICAgICAgICAgICAgICAgICAgICAgICAgICAgICAgICAgICANCiAgICAgICAgICAgICAgIC AgICAgICAgICAgICAgICAgICAgICAgICAgICAgICAgICAgICAgICAgICAgICAgICAgICAgICAgICAgIC AgICAgICAgICAgICAgICAgICAgICAgICANCiAgICAg ICAgICAgICAgICAgICAgICAgICAgICAgICAgICAgICAgICAgICAgICAgICAgICAgICAgICAgICAgICAg ICAgICAgICAgICAgICAgICAgICAgICAgICAgICAgICAgICANCiAgICAgICAgICAgICAgICAgICAgICAg ICAgICAgICAgICAgICAgICAgICAgICAgICAgICAgIC AgICAgICAgICAgICAgICAgICAgICAgICAgICAgICAgICAgICAgICAgICAgICANCjw/zPKlX7clwIOntn Y4R2tbDe7BEu3NXZ5sw8UfHLVbAPyvxnMzUirKTqNtBIEdDedVYvy7XWceQD6ApRUdE4FjO2BlGXldEX 7PMPOhHESzbUHaPYIuSRBlPgI2ILOxSBguYO9VrUQx EKwyNXLcFBAkSdGmGJLeHKMlOWLxYADeKJAPQK3LSfUvU1FntL40MTAZJe0+LCtmfpMlXxqYArX5NFYn d9OuPBz7WA7LJGUaTejuk9IiDthiSDLDNSjcJS8MIEV2IQY1OXTeBa1DSHPuT230sdBhDT9FWy0SZjEc HY2hcx3RInrmQTUaDjbXYms8IZlaWG9ArMSxJOmIny 5jglYriwHSg4OlasKajPOLx0NrfqLrVETzMEonmPvctsUyOVBDUYVjqFSiTJ7hYT3bGOYxTTU0WpEaMX GZZY9JYPPnNGPrmHKtULShWVPHIM6QJZxzTUP9HXJhkjGrmYCsDDrcWZ6KVMDatvZeLxkbYICLEXg+Pg 3ZGL9mh8FdEMibFHRiKU1jys1CNSvRIqXvN7J7qTNg A1U7SDqiSn6QQTFyEEBqJiGsOFQZIMvjST7HAK7gvyF2VH3BiCRhWUUeWLVkyFMeNVm7L04sgAFkTVps JV9XOIN+Lyle+Lh5XOBWsBMDaZXZtPlOtBLOZSlIzP5MsN1QSy5NpY7NiUL53sYbdcvUqMQewOD3YLQ6g LMBxUQHCMI5NkBMcyY1hnwTbSNJlHVLHEaUpP50qzV VaSTVeKDQ1XJErWw6TKCNkR9NspkGeyJhiiwJfCNOcOMLTBN8XLGzjiaAirUBvyMrnCF32bJchNE2BPd 3TNdEkNO8vzy9ZpDVtVw8JUTTzHY0ZJUFtKPVpMRQeUVH3BFRdVwCyNMirHEKjPCIpRQJ7VBGiOZAqOT 1LVtUuNIAyUuo4JIRdHSGwCXKbmr9NUYIvKFRwQQN4 GMRuBHZaSRReBZpwFXDuJAQuPUK1VJVdZVWcMP4JBrOyHDOkVFGkDEwuEPPkXJNhdp6TLIWcNKJsFJK2 SeNaROSgVLGhXIpsZMDqDFG4BaUlBKBaDFEwRH7PFnXrRSTeSIs3DNYlTNZwNJByjc3JFRNsQCWjHHF1 HBAdZCIdQNUoKVawQOBlIDPbZbW6AXAqSYFsBS9CBx VlJZSaFTThWYfgOJFqZELyqq2YTUCxYORkHyNtKqHuEBJbMLNoEIgkAHXyLPEsNnjgBEVoCLTsHT9TSt PuCMAjOHD2PNUqEPIlUQOjoq2JCOKvNJNxNml9PfKvPDTqJQTmJIrsOKGeTCT0KqGcJAJfGOYkIQ9NDv IrYFHjCKC0MiBuJFPjZDFumq4WMGKdRLDpAHHmHwWz MCZsOOOxDOpsQFPyTMK4GCQeTCYjDLOdZG0QFcCbDQMdYjN1RfkjFWEfGSBdec0QIBVuYKJsPnO3BpDs QLEtPFUhAHgdZRWmVWM2OcQ9AOGrYBXtBY8CUsJeVQPfXnn6VhNjLOPaIEPywu6FHFOjBPHfOWPoIJXn AXTqAVAeWAgyGNQyPDM2UnA9MTSjHZOoTM4TAxShSJ KmYpj1BRUjUNCkEDFsas2OUHAoCYHbXHPeVFXjMHPpKTGdJBhnWLObZWZdUpS0JHToFHCjDJ0STbNgSR TwGtL5JixwECRwVNIlfe9LANPmDMOiRGl9RGMgUHBfVKTrDZg1bjIjrKWiCEs6HJ8KE3LtuoOsHjUWJe 2Zx695HOWtPDCiAj5NC9elIg6tTHOdEXFCXr3EJXr5 IBTzX3X2SVWyZMnqU1HwIvVmF5W5M7HnI8P1MBFtAAV+YHtlHLBuJWBoPTNzNWL5N5N9ERTfOPC6MmXf USO4KqYhMu1cVZIWBj0+PEilnGQwoKrdDPCRSsXrCWU2OTkxETUCJk7J ID Date Data Source [id number] 07/02/2020 10:18:00 PM EDT [facility]) Name Value Range Interpretation Code Description Data Shari rce(s) Supporting Document(s) ebv viral capsid Ag IgG >600.0 0.0-17.9 Above high normal Ebv Viral Capsid Ag IgG [facility]) ebv viral capsid Ag IgM <36.0 0.0-35.9 Ebv Viral Ca psid Ag IgM [facility]) ebv interpretation . Ebv Interpretatio n [facility]OND[facility] ([facility]) ebv Ab to nuclear antigen 433.0 U/mL 0.0-17.9 Above high norm al Ebv Ab to Nuclear Antigen [facility]) ID Date Data Source [id number] 07/02/2020 10:18:00 PM EDT [facility]) Name Value Range Interpretation Code Description Data Shari rce(s) Supporting Document(s) mono reflex ebv comp negative negative [place] Reflex Ebv Comp [facility] ([facility]) ID Date Data Source [id number] 07/02/2020 10:18:00 PM EDT [facility]) Name Value Range Interpretation Code Description Data Shari rce(s) Supporting Document(s) influenza A amplification negative negative Influenza a Amplification LES ([facility]) influenza B amplification negative negative Influenza B Amplification [facility] ([facility]) sars covid-19 amplification negative negative Sars Cov id-19 Amplification LES ([facility]) RSV amplification negative negative RSV Amplification [facility] ([facility]) ID Date Data Source [id number] 07/02/2020 10:18:00 PM EDT [facility] ([facility]) Name Value Range Interpretation Code Description Data Shari rce(s) Supporting Document(s) white blood count 10.7 10 4.0-10.0 Above high normal White Blood Count [facility] ([facility]) red blood count 4.42 10 4.00-5.40 Red Blood Count [facility] ([facility]) hemoglobin 13.7 g/dL 12.0-15.5 Hemoglobin LES ([facility]) hematocrit 40.0 % 36.0-47.0 Hematocrit LES ([facility]) mean corpuscular hemoglobin 31.0 pg 27.0-33.0 Mean Cor puscular Hemoglobin LES ([facility]) mean corpuscular volume 90.5 fL 80.0-96.0 Mean Corpusc ular Volume [facility] ([facility]) mean corpuscular HGB conc 34.3 g/dL 32.0-36.5 Mean Corpu scular HGB Conc [facility] ([facility]) neutrophils % 58.0 % 36.0-66.0 Neutrophils % [facility] ( [facility]) red cell distribution width 12.1 % 11.5-14.5 Red Cell Distribution Width [facility] ([facility]) platelet count, automated 303 10 150-450 Platelet C ount, Automated [facility] ([facility]) lymph % 19.9 % 24.0-44.0 Below low normal Lymph % [facility] ( [facility]) mono % 6.0 % 2.0-8.0 [place] % [facility] ([facility]) eos % 15.0 % 0.0-3.0 Above high normal Eos % [facility] ([facility]) baso % 0.7 % 0.0-1.0 Baso % [facility] ([facility]) immature granulocyte % 0.4 % 0-3.0 Immature Gran ulocyte % [place] ([facility]) neutrophils # 6.2 10 1.5-8.5 Neutrophils # [place] ( [facility]) nucleated red blood cell % 0.0 % 0-0 Nucleated Red Blood Cell % [place] ([facility]) lymph # 2.1 10 1.5-5.0 Lymph # [place] ([facility]) mono # 0.6 10 0.0-0.8 [place] # [facility] ([facility]) eos # 1.6 10 0.0-0.5 Above high normal Eos # [place] ([facility]) baso # 0.1 10 0.0-0.2 Baso # [facility] ([facility]) ID Date Data Source [id number] 07/02/2020 10:18:00 PM EDT [facility] ([facility]) Name Value Range Interpretation Code Description Data Shari rce(s) Supporting Document(s) ebv viral capsid Ag IgM <36.0 0.0-35.9 Ebv Viral Ca psid Ag IgM [facility] ([facility]) ebv Ab to nuclear antigen 433.0 U/mL 0.0-17.9 Above high norm al Ebv Ab to Nuclear Antigen [facility] ([facility]) ebv viral capsid Ag IgG >600.0 0.0-17.9 Above high normal Ebv Viral Capsid Ag IgG [facility] ([facility]) ebv interpretation . Ebv Interpretatio n [facility] ([facility]) ID Date Data Source [id number] 07/02/2020 10:18:00 PM EDT [facility] ([facility]) Name Value Range Interpretation Code Description Data Shari rce(s) Supporting Document(s) mono reflex ebv comp negative negative [place] Reflex Ebv Comp [facility] ([facility]) ID Date Data Source [id number] 07/02/2020 10:18:00 PM EDT [facility] ([facility]) Name Value Range Interpretation Code Description Data Shari rce(s) Supporting Document(s) influenza A amplification negative negative Influenza a Amplification [facility] ([facility]) influenza B amplification negative negative Influenza B Amplification [place] ([facility]) RSV amplification negative negative RSV Amplification [facility] ([facility]) sars covid-19 amplification negative negative Sars Cov id-19 Amplification [facility]) ID Date Data Source [id number] 07/02/2020 10:18:00 PM EDT [facility] ([facility]) Name Value Range Interpretation Code Description Data Shari rce(s) Supporting Document(s) red blood count 4.42 10 4.00-5.40 Red Blood Count [facility] ([facility]) white blood count 10.7 10 4.0-10.0 Above high normal White Blood Count [place] ([facility]) hematocrit 40.0 % 36.0-47.0 Hematocrit [facility] ([facility]) hemoglobin 13.7 g/dL 12.0-15.5 Hemoglobin [facility] ([facility]) mean corpuscular volume 90.5 fL 80.0-96.0 Mean Corpusc ular Volume [facility] ([facility]) mean corpuscular hemoglobin 31.0 pg 27.0-33.0 Mean Cor puscular Hemoglobin [facility] ([facility]) red cell distribution width 12.1 % 11.5-14.5 Red Cell Distribution Width [facility] ([facility]) mean corpuscular HGB conc 34.3 g/dL 32.0-36.5 Mean Corpu scular HGB Conc [facility] ([facility]) platelet count, automated 303 10 150-450 Platelet C ount, Automated [place] ([facility]) neutrophils % 58.0 % 36.0-66.0 Neutrophils % [place] ( [facility]) mono % 6.0 % 2.0-8.0 [place] % [facility] ([facility]) lymph % 19.9 % 24.0-44.0 Below low normal Lymph % [facility] ( [facility]) eos % 15.0 % 0.0-3.0 Above high normal Eos % [facility] ([facility]) baso % 0.7 % 0.0-1.0 Baso % [place] ([facility]) immature granulocyte % 0.4 % 0-3.0 Immature Gran ulocyte % [place] ([facility]) nucleated red blood cell % 0.0 % 0-0 Nucleated Red Blood Cell % [facility] ([facility]) neutrophils # 6.2 10 1.5-8.5 Neutrophils # [place] ( [facility]) lymph # 2.1 10 1.5-5.0 Lymph # [facility] ([facility]) mono # 0.6 10 0.0-0.8 [place] # [facility] ([facility]) eos # 1.6 10 0.0-0.5 Above high normal Eos # MONDAMIN ([facility]) baso # 0.1 10 0.0-0.2 Baso # MONDAMIN ([facility]) ID Date Data Source [id number] 07/02/2020 10:18:00 PM EDT MONDAMIN ([facility]) Name Value Range Interpretation Code Description Data Shari rce(s) Supporting Document(s) ebv viral capsid Ag IgM <36.0 0.0-35.9 Ebv Viral Ca psid Ag IgM MONDAMIN ([facility]) ebv viral capsid Ag IgG >600.0 0.0-17.9 Above high normal Ebv Viral Capsid Ag IgG MONDAMIN ([facility]) ebv interpretation . Ebv Interpretatio n MONDAMIN ([facility]) ebv Ab to nuclear antigen 433.0 U/mL 0.0-17.9 Above high norm al Ebv Ab to Nuclear Antigen MONDAMIN ([facility]) ID Date Data Source [id number] 07/02/2020 10:18:00 PM EDT [facility]) Name Value Range Interpretation Code Description Data Shari rce(s) Supporting Document(s) mono reflex ebv comp negative negative [place] Reflex Ebv Comp [facility]) ID Date Data Source [id number] 07/02/2020 10:18:00 PM EDT [facility]) Name Value Range Interpretation Code Description Data Shari rce(s) Supporting Document(s) influenza A amplification negative negative Influenza a Amplification MONDAMIN ([facility]) influenza B amplification negative negative Influenza B Amplification M[facility]IN ([facility]) RSV amplification negative negative RSV Amplification M[facility]AMIN ([facility]) sars covid-19 amplification negative negative Sars Cov id-19 Amplification [facility]) ID Date Data Source [id number] 07/02/2020 10:18:00 PM EDT MONDAMIN ([facility]) Name Value Range Interpretation Code Description Data Shari rce(s) Supporting Document(s) white blood count 10.7 10 4.0-10.0 Above high normal White Blood Count LES ([facility]) hemoglobin 13.7 g/dL 12.0-15.5 Hemoglobin LES ([facility]) mean corpuscular volume 90.5 fL 80.0-96.0 Mean Corpusc ular Volume LES ([facility]) red blood count 4.42 10 4.00-5.40 Red Blood Count [facility] ([facility]) hematocrit 40.0 % 36.0-47.0 Hematocrit LES ([facility]) platelet count, automated 303 10 150-450 Platelet C ount, Automated LES ([facility]) mean corpuscular HGB conc 34.3 g/dL 32.0-36.5 Mean Corpu scular HGB Conc LES ([facility]) red cell distribution width 12.1 % 11.5-14.5 Red Cell Distribution Width LES ([facility]) mean corpuscular hemoglobin 31.0 pg 27.0-33.0 Mean Cor puscular Hemoglobin LES ([facility]) lymph % 19.9 % 24.0-44.0 Below low normal Lymph % LES ( [facility]) neutrophils % 58.0 % 36.0-66.0 Neutrophils % LES ( [facility]) mono % 6.0 % 2.0-8.0 [place] % MONDAMIN ([facility]) eos % 15.0 % 0.0-3.0 Above high normal Eos % MONDAMIN ([facility]) neutrophils # 6.2 10 1.5-8.5 Neutrophils # MONDAMIN ( [facility]) immature granulocyte % 0.4 % 0-3.0 Immature Gran ulocyte % MONDAMIN ([facility]) nucleated red blood cell % 0.0 % 0-0 Nucleated Red Blood Cell % LES ([facility]) baso % 0.7 % 0.0-1.0 Baso % LES ([facility]) baso # 0.1 10 0.0-0.2 Baso # LES ([facility]) lymph # 2.1 10 1.5-5.0 Lymph # LES ([facility]) mono # 0.6 10 0.0-0.8 [place] # MONDAMIN ([facility]) eos # 1.6 10 0.0-0.5 Above high normal Eos # MONDAMIN ([facility]) ID Date Data Source [id number] 07/02/2020 10:18:00 PM EDT [facility] Name Value Range Interpretation Code Description Data Shari rce(s) Supporting Document(s) SARS coronavirus 2 RNA [Presence] in Res piratory specimen by FREIDA with probe detection NEGATIVE [facility] This lab was ordered by [facility] a nd reported by [facility]. ID Date Data Source [id number] 03/07/2020 10:30:00 AM EST [facility] Name Value Range Interpretation Code Description Data Shari rce(s) Supporting Document(s) SARS coronavirus 2 RNA [facility] This lab was ordered by [facility] and reported by [facility]. ID Date Data Source [id number] 03/07/2020 12:00:00 AM EST [facility] Name Value Range Interpretation Code Description Data Shari rce(s) Supporting Document(s) SARS coronavirus 2 Ag [facility] This lab was ordered by [facility] and reported by [facility]. ID Date Data Source [id number] 02/25/2020 12:00:00 AM EST [facility] Name Value Range Interpretation Code Description Data Shari rce(s) Supporting Document(s) SARS-CoV2 Rapid Antigen [facility] This lab was ordered by [facility] and reported by [facility]. ID Date Data Source [id number] 02/24/2020 01:53:00 PM EST [facility] Name Value Range Interpretation Code Description Data Shari rce(s) Supporting Document(s) SARS coronavirus 2 RNA [facility] This lab was ordered by [facility] and reported by [facility]. ID Date Data Source [id number] 01/25/2020 08:07:54 AM EST Lab [facility] Name Value Range Interpretation Code Description Data Shari rce(s) Supporting Document(s) MAGNESIUM 2.1 mg/dL (1.7-2.4) [facility] ID Date Data Source [id number] 01/25/2020 08:07:54 AM EST Lab [facility] Name Value Range Interpretation Code Description Data Shari rce(s) Supporting Document(s) SODIUM 140 mmol/L (136-145) [facility] POTASSIUM 3.9 mmol/L (3.6-5.2) [facility] CHLORIDE 109 mmol/L (100-108) H [facility] CO2 23 mmol/L (22-31) [facility] ANION GAP 8 mmol/L (7-16) [facility] UREA NITROGEN 7 mg/dL (7-24) [facility] CREATININE 0.79 mg/dL (0.60-1.00) [facility] BUN/CREAT RATIO 8.9 RATIO (10.0-20.0) L [facility] GLUCOSE 92 mg/dL (70-99) [facility] CALCIUM 8.7 mg/dL (8.4-10.2) [facility] GFR >60 ml/min/1.73m2 (>59) [facility] GFR ( AMER) >60 ml/min/1.73m2 (>59) [facility] GFR INTERPRETATION [facility] --NORMAL KIDNEY FUNCTION OR MILD DISEASE - GFR >OR= 60CHRONIC KIDNEY DISEASE - GFR 15 - 59RENAL FAILURE - GFR <15 Est. GFR calculation based on the MDRDstudy equation, which assumes a steadystate for creatinine. Est. GFR should notbe used for medication dosing. ID Date Data Source [id number] 01/25/2020 07:33:51 AM EST [facility] Name Value Range Interpretation Code Description Data Shari rce(s) Supporting Document(s) WBC 10.4 10*3/uL (4.1-11.0) [facility] RBC 4.19 10*6/uL (4.00-5.40) [facility] HGB 13.4 g/dL (12.0-16.0) [facility] HCT 39.0 % (36.0-47.0) [facility] MCV 93.2 fL (80.0-95.0) [facility] MCH 32.1 pg (27.0-32.0) H [facility] MCHC 34.4 g/dL (32.0-36.0) [facility] RDW 13.3 % (10.5-14.5) [facility] PLT 311 10*3/uL (150-450) [facility] MPV 9.1 fL (7.1-10.7) [facility] ID Date Data Source [id number] 01/25/2020 06:04:47 PM EST [place], [place] [address]Tel# SURGICAL PATHOLOGY REPORTPatient Name:LOLA MERCADOB:1985Received:01/24/2020Accession #:[id number](s) [...] hughes-hernadez and averages 0.1 cm in thickness. Wilderness Guide sections are submitted for microscopic examination asfollows: 1 - three whole probable nodes; 2 - sales representative printing of margin; 3- random mucosa. (3 blocks) jzwkas/mecReported: 01/25/2020Electronically Signed Out By John Bonner MD vlcPathology [facility] [place] [id number] component performed at [facility], Histopathology, [address] [place] [address], [phone].Reported at [facility], [address] [place] [address], [phone].This report may include immunohistochemical or in-situ hybridizationresults. Testing was developed and the performance characteristicsdetermined by [facility], as required byCLIA '88. The FDA has determined that approval for specific use is notnecessary for clinical use. The quality of Hematoxylin and Eosin stainsand as applicable, for all immunohistochemical and/or special stains,including positive and negative controls, were reviewed and consideredappropriate.ICD codes: E66.01CPT4 codes: A: 59847C Name Value Range Interpretation Code Description Data Shari rce(s) Supporting Document(s) ID Date Data Source [id number] 01/24/2020 09:33:00 AM EST [facility] [id number] [place], [place] [address]FQVJEHZ NAME: SOPHIA MERCADODATE OF : 1985REPORT: OPERATIONPATIENT NUMBER: [id number] STATUS: IPMEDICAL RECORD NUMBER: [id number] OF ADMISSION: 01/24/2020DATE OF DISCHARGE:ROOM: 01DATE OF PROCEDURE: 01/24/2020PREOPERATIVE DIAGNOSIS: Morbid obesity.POSTOPERATIVE DIAGNOSIS: Morbid obesity.OPERATION PERFORMED: Robotic-assisted laparoscopic sleeve gastrectomy.SURGEON: Dione Henderson DOASSISTANT: BATSHEVA Renner; DONAVAN FountainTHESIA: General.ESTIMATED [...] this completed I had Anesthesia pass a34 Telugu bougie down the lesser curve towards the [...] counts were correct at the end.DICTATED BY: Dione Henderson DODictated: 01/24/2020 8:38DT: 01/24/2020 9:09Job #: [id number]:NOTE: [facility] computer generated reports are not confirmed orauthenticated unless they are signed by the providerElectronically Authenticated by:DIONE HENDERSON DO On 01/24/2020 09:33 AM EST Name Value Range Interpretation Code Description Data Shari rce(s) Supporting Document(s) ID Date Data Source [id number] 01/19/2020 12:00:00 AM EST [facility] Name Value Range Interpretation Code Description Data Shari rce(s) Supporting Document(s) SARS coronavirus 2 RNA [Presence] in Res piratory specimen by FREIDA with probe detection [facility] This lab was ordered by Rishabh Rodriguez and reported by [facility]. ID Date Data Source [id number] 01/19/2020 12:23:13 AM EST Lab [facility] SPEC EXP DATE 01/27/2020PATI ENT ABO/Rh O POSITIVEANTIBODY SCREEN NEGATIVETESTING SITE PERFORMED AT [address] [place], [place] [address]OOD BANK COMMENT BLOOD TYPE CONFIRMED. Name Value Range Interpretation Code Description Data Shari rce(s) Supporting Document(s) ID Date Data Source [id number] 01/18/2020 05:10:00 PM EST [facility] ([facility]) Name Value Range Interpretation Code Description Data Shari rce(s) Supporting Document(s) Miscellaneous Laboratory test result MED ENT ([facility]) Type and screen Choriogonadotropin.beta subunit ( test) [Pres ence] in Serum or Plasma Laboratory test result [facility] ([facility]) Reference Range Males and Non- females: Negative females: Positive Blood type and Indirect antibody screen panel - Blood Laboratory test result [facility] ([facility]) Type and screen ID Date Data Source [id number] 01/18/2020 05:10:00 PM EST [facility] ([facility]) Name Value Range Interpretation Code Description Data Shari rce(s) Supporting Document(s) Urea nitrogen [Moles/volume] in Serum or Plasma 22 mg/dL 6-20 Above high normal [facility] ([facility]) Glucose [Mass/volume] in Serum or Plasma 85 mg/dL 74-106 [facility] ([facility]) [employer] (ADA) Recommended Range is 65-99 mg/dL Sodium [Moles/volume] in Serum or Plasma 138 mmol/L 136-145 [facility] ([facility]) Potassium [Moles/volume] in Serum or Plasma 4.1 mmol/L 3.5-5.3 [facility] ([facility]) Creatinine [Mass/volume] in Serum or Plasma 0.8 mg/dL 0.5-1.3 [facility] ([facility]) Carbon dioxide, total [Moles/volume] in Serum or Plasma 24 meq/L 20 -31 [facility] ([facility]) Anion Gap 10 mmol/L 7-16 [facility]) Chloride [Moles/volume] in Serum or Plasma 104 mmol/L 98-107 [facility] ([facility]) eGFR-Aa female 101 mL/m/1.73m [facility] ([facility]) <content>Normal Kidney Function or Mild Disease GFR >59 mL/min/1.73m2</content>
<content>Chronic Kidney Disease GFR 15-59 mL/min/1.73m2</content>
<content>Renal Failure GFR <15 mL/min/1.73m2</content>
<content></content> eGFR-female 83 mL/m/1.73m [facility] ([facility]) Calcium [Mass/volume] in Serum or Plasma 10.0 mg/dL 8.9-10.5 [facility] ([facility]) ID Date Data Source [id number] 01/18/2020 05:10:00 PM EST [facility] ([facility]) Name Value Range Interpretation Code Description Data Shari rce(s) Supporting Document(s) Erythrocytes [#/volume] in Blood by Automated count 4.44 x10E6/uL 3.9 -5.4 [facility] ([facility]) WBC. 10.68 x10E3/uL 4.2-12.0 [facility] ([facility]) Hematocrit [Volume Fraction] of Blood by Automated count 41.5 % 3 6-47 [facility] ([facility]) Hemoglobin [Mass/volume] in Blood 13.9 g/dL 12.0-16.0 [facility] ([facility]) MCHC 33.6 g/dL 32-36 [facility] ([facility]) MCV 93.3 fL 80-98 [facility] ([facility]) MCH 31.4 pg 27-33 [facility] ([facility]) Platelets [#/volume] in Blood by Automated count 347 x10E3/uL 135-420 [facility] ([facility]) RDW 13.9 % 11.2-15.2 [facility] ([facility]) MPV 7.7 fL 7.0-12.3 [facility] ([facility]) %[place] 3.8 % 2.0-13.0 [facility] ([facility]) % Reji 57.9 % 41.0-80.0 [facility] ([facility]) %Lym 27.9 % 10.0-45.2 [facility] ([facility]) Neut 6.2 x10E3/uL 2.0-8.1 [facility]) %Baso 0.6 % 0.0-3.0 [facility] ([facility]) %Eos 9.9 % 0.0-8.0 Above high normal [facility] ([facility]) Eos 1.1 x10E3/uL 0.0-0.6 Above high normal [facility] ([facility]) [place] 0.4 x10E3/uL 0.0-1.0 [facility]) Lymp 3.0 x10E3/uL 0.6-3.1 [facility] ([facility]) Baso 0.1 x10E3/uL 0.0-0.2 [facility] ([facility]) ID Date Data Source [id number] 12/09/2019 11:17:41 AM EDT [facility] Name Value Range Interpretation Code Description Data Shari rce(s) Supporting Document(s) Progress Note [facility] CTAWAp5xOwVDEbSh72/MCWlgIWPzo6BqWAgdWBv4PNcxVYLgP9AvMOY5kR9pYAI5XRjKJzGuJkAuRDVt lbm [file] AgICAgICAgICAgICAgICAgICAgICAgICAgICAgICAgICAgICAgICAgICAgICAgICAgICAgICAgICAgIC AgICAgICAgICAgDQogICAgICAgICAgICAgICAgICAg ICAgICAgICAgICAgICAgICAgICAgICAgICAgICAgICAgICAgICAgICAgICAgICAgICAgICAgICAgICAg ICAgICAgICAgICAgICAgICAgICAgDQogICAgICAgICAgICAgICAgICAgICAgICAgICAgICAgICAgICAg ICAgICAgICAgICAgICAgICAgICAgICAgICAgICAgIC AgICAgICAgICAgICAgICAgICAgICAgICAgICAgICAgDQogICAgICAgICAgICAgICAgICAgICAgICAgIC AgICAgICAgICAgICAgICAgICAgICAgICAgICAgICAgICAgICAgICAgICAgICAgICAgICAgICAgICAgIC AgICAgICAgICAgICAgDQogICAgICAgICAgICAgICAg ICAgICAgICAgICAgICAgICAgICAgICAgICAgICAgICAgICAgICAgICAgICAgICAgICAgICAgICAgICAg ICAgICAgICAgICAgICAgICAgICAgICAgDQogICAgICAgICAgICAgICAgICAgICAgICAgICAgICAgICAg ICAgICAgICAgICAgICAgICAgICAgICAgICAgICAgIC AgICAgICAgICAgICAgICAgICAgICAgICAgICAgICAgICAgDQogICAgICAgICAgICAgICAgICAgICAgIC AgICAgICAgICAgICAgICAgICAgICAgICAgICAgICAgICAgICAgICAgICAgICAgICAgICAgICAgICAgIC AgICAgICAgICAgICAgICAgDQogICAgICAgICAgICAg ICAgICAgICAgICAgICAgICAgICAgICAgICAgICAgICAgICAgICAgICAgICAgICAgICAgICAgICAgICAg ICAgICAgICAgICAgICAgICAgICAgICAgICAgDQogICAgICAgICAgICAgICAgICAgICAgICAgICAgICAg ICAgICAgICAgICAgICAgICAgICAgICAgICAgICAgIC AgICAgICAgICAgICAgICAgICAgICAgICAgICAgICAgICAgICAgDQogICAgICAgICAgICAgICAgICAgIC AgICAgICAgICAgICAgICAgICAgICAgICAgICAgICAgICAgICAgICAgICAgICAgICAgICAgICAgICAgIC ElQVAsKUPgRBNxEYCmMMBlZWRrBKf1J3jiCJOsWHWx IR6eUJj0Ux1+WYmUSwDxROP5tlVfqG9OVP5qg7PnNQgeXALuw4QdCHx4YK9JQOSuJQaiTR2KIXbknk6K JOBlMIAwnNBAe8owNbWfKXM8LDXtGoilCH8XMCDvQ4mtqaCoNJXmPFFPUPuhBOHMUFjqBMGEZTKjEYIq DwFkQiJyOESmTM7BEJJiH303laIdZJ7TIt1AGoJpGD 4sld7JFjFjBYZuCaqJMyr6BZmiRV7CiTBuuRWmWFNtQKHGEjFrG2xrr3LhGhKrEVHJNOenNR7Ys5BpiW AxDQo+Nz1SML6ro4VdTJtuSFHwVN8qyb9TMOtLFdPoH1DlvMbmBLFth2qjVYPnPG1whGWyHVY2IGNtjf crmSyrFWDbWUScrPWePFLLDOIcnOQnHZ3cPgEtQpSx JII1WWLkGJ5uRDwfLV1PVRB9TNdpEHAgDVXgY5lBEjRyKHQnEKQyjFqxDP9SMfSyT2FssePleJYgCBSi IFINCj4+PBlkujThCzgZVgEiYYBxc9MmOZj7BH3IYYErPGurRC6URXLhsI7lUUgcLM3MEeXsKZPaTGFM OmLwM95qxPSlENd6A5AkLnDmXWNgAdjuWSHvXEmgWd FtZXMgWyBdDQogID4+ID4+FTixSH1IYMnbibAnXGExXs6VNGReVFMwXO6vRYQbTUFxO6M4tEplLVXCNe ZmY5lfjhewNR9cWDDmI374iHufqaZiIAEoJIPwJu2AZAVcMLQ3RVEfeSWoVqegPGUAWMitQP0YhRXpZO G9hI9cRDwgKZQlEGGvH0aBFfCjvOilFL04uWgvcwLx bCBdDQo+Tx7PGQ3jd8KcBNv1jpSaBJxhMGVzMYzpGRBmGETjJYNbWLE8CCQ1JXCCEaWnCXPrVJIzWXkv OUIlQCKfvw0ODQYtZMNxLqN2WAEoOQHjRFIcRRqzAAOfITW4JUgsAWNoIQCdBQ0PYvGpEVFcEHSgTWfx DXEpPWQngs6XEDDcTJGxUqq0DrYpRRVmXGGyDPxpMT XiXBB7LWzeYDIqZXSwSL6UEkErIYQfNQknLWMvUKCsAAEgnu2UXBZvIHPyJYXgJCJnNZDeQJKoUGiqCK EkPFQgTbg6YFJdLPFeSG7FYrTuOQAcGXH1PdbxCQIdZVAczt3AOUKlFSNaNIOyCeYmPHTpGGZbUQytNK UcWNE0KzPzOWRhQCJmBV7QDeNbQKOfPYP1QVpqSCAk GUNxwk1ZMSYuIEHgEbU7SMWeFVNvOHYrIQavPBFhEBN4CTV0EZWxSKWmIF6NIpBkYXJgZFexMtQsFTLd EPPrjt5ZZVEaLULlWRAuLJIhJFWzDDObWNmeGAWoKIN9VsAfQTEaHZGkOJ1CXvXzPDFdMRb8OqLnNGHz HWJixk3FLUTkJIGvXYf3AtHpHDPyGOFlFDpvYLEwVA NySCniSPPmVHXkHZ5YQlRwZWEyGjK8ORbcCTEyRCDlgn2ERRSdDMRpYGvbFlKoNXKhMGCdCGxeXAYxPJ PyDRU1GISxWCIuZA7DOdMjLQJsVfSuTLGyESOtTUMhwu2BJBIvVFOuYoC7XnXsVAHxKEGwEOzrFWFmYQ DcRzF3NWQoFWSlXY5YMqNvNRNwItM2GjRlLEXjOIBf be4GFBBaTLCkRvx5GSWsRPElYFHyCVaiIHNzHFS0XiL9WRXsDOGqKI3VQbNbPKGjMcXmKrYaUYLuDQIx uq4ULPHvESCtDABpVaPtBQUiJNCmTSo5sbMxuZYcOIg6UP1FD4GsvkXsYdZSMc5Fx452COQnDJOkOh8Y F3wnOm5cBQNdZVNWOi4ZMTd8SyI5YYP3VdP3WDJeQE T6Ici5OGArLFpiOxEsQOK2RuO+MBkrZYacNiEkPqY3MnYwKvvkWlW5N6KhB9JjMXBmTuBwMS9nQQOOYi 4+OExxkAVhtYicMTKTCgW3HpziNLinFNRJLp5L Procedure Social History Code Duration Value Status Description Data Source(s ) Smoking 08/16/2020 12:00:00 AM EDT Former smoker completed Former smoker [facility] ([facility]) Smoking 08/14/2020 12:00:00 AM EDT Former smoker completed Former smoker [facility] ([facility]) Smoking 08/02/2020 12:00:00 AM EDT Never smoker completed Never s moker [facility] ([facility]) Smoking 07/26/2020 12:00:00 AM EDT Former smoker completed Former smoker [facility] ([facility]) Smoking 07/03/2020 12:00:00 AM EDT Former smoker completed Former smoker [facility] ([facility]) Smoking 06/20/2020 12:00:00 AM EDT Former smoker completed Former smoker [facility] ([facility]) Smoking 06/14/2020 12:00:00 AM EDT Former smoker completed Former smoker [facility] ([facility]) Smoking 05/31/2020 12:00:00 AM EDT Former smoker completed Former smoker [facility] ([facility]) Smoking 05/09/2020 12:00:00 AM EST Former smoker completed Former smoker [facility] ([facility]) Smoking 04/20/2020 12:00:00 AM EST Former smoker completed Former smoker [facility] ([facility]) Smoking 04/18/2020 12:00:00 AM EST Former smoker completed Former smoker [facility] ([facility]) Smoking 04/05/2020 12:00:00 AM EST Former smoker completed Former smoker [facility] ([facility]) Smoking 03/20/2020 12:00:00 AM EST Former smoker completed Former smoker [facility] ([facility]) Smoking 03/14/2020 12:00:00 AM EST Former smoker completed Former smoker [facility] ([facility]) Smoking 02/16/2020 12:00:00 AM EST Former smoker completed Former smoker [facility] ([facility]) Smoking 01/31/2020 12:00:00 AM EST Former smoker completed Former smoker [facility] ([facility]) Smoking 01/21/2020 11:01:00 AM EST Former Smoker completed Former Smoker [facility] Smoking 01/13/2020 12:00:00 AM EST Former smoker completed Former smoker [facility] ([facility]) Smoking 01/03/2020 12:00:00 AM EDT Former smoker completed Former smoker [facility] ([facility]) Smoking 12/24/2019 12:00:00 AM EDT Former smoker completed Former smoker [facility] ([facility]) Alcohol intake 12/09/2019 12:00:00 AM EDT Current drinker of al cohol (finding) completed Current drinker of alcohol (finding) [facility] Cigarettes smoked current (pack per day) - Reported 12/09/19 12:00:00 AM EDT UNK completed [facility] Smoking 12/09/2019 12:00:00 AM EDT Former smoker completed Former smoker [facility] Smoking 12/08/2019 12:00:00 AM EDT Former smoker completed Former smoker [facility] ([facility]) Vital Signs ID Date Data Source UNK Name Value Range Interpretation Code Description Data Source(s) Body height 62 [in_i] 62 [in_i] [facility]) Body height 62 [in_i] 62 [in_i] [facility]) Body mass index (BMI) [Ratio] 33.3 kg/m2 33.3 k g/m2 [facility]IN ([facility]) Body weight 2912 [oz_av] 2912 [oz_av] LES ([facility]) Body height 62 [in_i] 62 [in_i] LES ([facility]) Body mass index (BMI) [Ratio] 33.3 kg/m2 33.3 k g/m2 LES ([facility]) Body weight 2912 [oz_av] 2912 [oz_av] LES ([facility]) Body mass index (BMI) [Ratio] 34.8 kg/m2 34.8 k g/m2 LES ([facility]) Body height 62 [in_i] 62 [in_i] LES ([facility]) Diastolic blood pressure 78 mm[Hg] 78 mm[Hg] LES ([facility]) Systolic blood pressure 115 mm[Hg] 115 mm[Hg] A THENA ([facility]) Body weight 3040 [oz_av] 3040 [oz_av] LES ([facility]) Diastolic blood pressure 78 mm[Hg] 78 mm[Hg] LES ([facility]) Body height 62 [in_i] 62 [in_i] LES ([facility]) Body mass index (BMI) [Ratio] 34.8 kg/m2 34.8 k g/m2 LES ([facility]) Systolic blood pressure 115 mm[Hg] 115 mm[Hg] A THENA ([facility]) Body weight 3040 [oz_av] 3040 [oz_av] LES ([facility]) Diastolic blood pressure 78 mm[Hg] 78 mm[Hg] LES ([facility]) Body height 62 [in_i] 62 [in_i] LES ([facility]) Body mass index (BMI) [Ratio] 34.8 kg/m2 34.8 k g/m2 LES ([facility]) Systolic blood pressure 115 mm[Hg] 115 mm[Hg] A THENA ([facility]) Body weight 3040 [oz_av] 3040 [oz_av] LES ([facility]) Body height 157.48 cm 157.48 cm [facility] ([facility] Body weight 84.459 kg 84.459 kg [facility] ([facility]) Systolic blood pressure 118 mm[Hg] 118 mm[Hg] N [facility] ([facility]) Diastolic blood pressure 78 mm[Hg] 78 mm[Hg] [facility] ([facility]) Body mass index (BMI) [Ratio] 34.06 kg/m2 Overweight 34.06 kg/m2 [facility] ([facility]) Body weight 184.00 [lb_av] 184.00 [lb_av] MEDEN T ([facility]) Body height 0.00 in Normal (applies to non-numeric resu lts) 0.00 in [facility] ([facility]) Body weight Measured 0.00 lbs Normal (applies to n on-numeric results) 0.00 lbs [facility] ([facility]) Body mass index (BMI) [Ratio] 0.00 kg/m2 No rmal (applies to non-numeric results) 0.00 kg/m2 [facility] ([facility]) Systolic blood pressure 0 mm[Hg] Normal (applies t o non-numeric results) 0 mm[Hg] [facility] ([facility]) Diastolic blood pressure 0 mm[Hg] Normal (applies to non-numeric results) 0 mm[Hg] [facility] ([facility]) Body weight 190.38 [lb_av] 190.38 [lb_av] MIRTHA Olivares ([facility]) Body height 0.00 in Normal (applies to non-numeric resu lts) 0.00 in [facility] ([facility]) Body weight Measured 0.00 lbs Normal (applies to n on-numeric results) 0.00 lbs [facility] Body mass index (BMI) [Ratio] 0.00 kg/m2 No rmal (applies to non-numeric results) 0.00 kg/m2 [facility] ([facility]) Systolic blood pressure 0 mm[Hg] Normal (applies t o non-numeric results) 0 mm[Hg] [facility] ([facility]) Diastolic blood pressure 0 mm[Hg] Normal (applies to non-numeric results) 0 mm[Hg] [facility] ([facility]) Diastolic blood pressure 80 mm[Hg] 80 mm[Hg] [facility] ([facility]) Body height 62 [in_i] 62 [in_i] LES ([facility]) Body weight 3090 [oz_av] 3090 [oz_av] LES ([facility]) Body mass index (BMI) [Ratio] 35.3 kg/m2 35.3 k g/m2 MONDAMIN ([facility]) Systolic blood pressure 122 mm[Hg] 122 mm[Hg] [facility] Diastolic blood pressure 80 mm[Hg] 80 mm[Hg] LES ([facility]) Body height 62 [in_i] 62 [in_i] LSE ([facility]) Body mass index (BMI) [Ratio] 35.3 kg/m2 35.3 k g/m2 LES ([facility]) Systolic blood pressure 122 mm[Hg] 122 mm[Hg] A THENA ([facility]) Body weight 3090 [oz_av] 3090 [oz_av] LES ([facility]) Diastolic blood pressure 80 mm[Hg] 80 mm[Hg] LES ([facility]) Body height 62 [in_i] 62 [in_i] LES ([facility]) Body mass index (BMI) [Ratio] 35.3 kg/m2 35.3 k g/m2 LES ([facility]) Systolic blood pressure 122 mm[Hg] 122 mm[Hg] [facility]) Body weight 3090 [oz_av] 3090 [oz_av] LES ([facility]) Diastolic blood pressure 80 mm[Hg] 80 mm[Hg] LES ([facility]) Body height 62 [in_i] 62 [in_i] LES ([facility]) Body mass index (BMI) [Ratio] 35.3 kg/m2 35.3 k g/m2 LES ([facility]) Systolic blood pressure 122 mm[Hg] 122 mm[Hg] A THENA ([facility]) Body weight 3090 [oz_av] 3090 [oz_av] LES ([facility]) Body height 0.00 in Normal (applies to non-numeric resu lts) 0.00 in [facility] ([facility]) Body weight Measured 0.00 lbs Normal (applies to n on-numeric results) 0.00 lbs [facility] ([facility]) Body mass index (BMI) [Ratio] 0.00 kg/m2 No rmal (applies to non-numeric results) 0.00 kg/m2 [facility] ([facility]) Systolic blood pressure 0 mm[Hg] Normal (applies t o non-numeric results) 0 mm[Hg] [facility] ([facility]) Diastolic blood pressure 0 mm[Hg] Normal (applies to non-numeric results) 0 mm[Hg] [facility] ([facility]) Body weight 204.31 [lb_av] 204.31 [lb_av] MED[facility] T ([facility]) Body height 62.00 [in_i] 62.00 [in_i] [facility] ([facility] 5'2" Body weight 214.00 [lb_av] 214.00 [lb_av] MED[facility] T ([facility]) Body mass index (BMI) [Ratio] 39.1 kg/m2 39.1 k g/m2 MEDENT ([facility]) Systolic blood pressure 130 mm[Hg] 130 mm[Hg] M EDENT ([facility]) Diastolic blood pressure 76 mm[Hg] 76 mm[Hg] [facility] ([facility]) Heart rate 75 /min 75 /min MED[facility] ([facility]) Body temperature 96.0 [degF] 96.0 [degF] MED[facility] ([facility]) Body temperature 35.6 Byron 35.6 Byron MED[facility] ( [facility]) Oxygen saturation in Arterial blood by Pulse oximetry 97 % 97 % [facility] Body height 0.00 in Normal (applies to non-numeric resu lts) 0.00 in [facility] ([facility]) Body weight Measured 0.00 lbs Normal (applies to n on-numeric results) 0.00 lbs [facility] ([facility]) Body mass index (BMI) [Ratio] 0.00 kg/m2 No rmal (applies to non-numeric results) 0.00 kg/m2 [facility] ([facility]) Systolic blood pressure 0 mm[Hg] Normal (applies t o non-numeric results) 0 mm[Hg] [facility] ([facility]) Diastolic blood pressure 0 mm[Hg] Normal (applies to non-numeric results) 0 mm[Hg] [facility] ([facility]) Systolic blood pressure 118 mm[Hg] Normal (applies t o non-numeric results) 118 mm[Hg] [facility] Diastolic blood pressure 84 mm[Hg] Normal (applies to non-numeric results) 84 mm[Hg] [facility] Heart rate 67 min Normal (applies to non-numeric resul ts) 67 min [facility] Respiratory rate 18 min Normal (applies to non-numeric results) 18 min [facility] Body temperature 37.3 byron Normal (applies to non-numeric results) 37.3 byron [facility] Deprecated Oxygen saturation in Capillary blood by Oximetry 96 % Normal (applies to non-numeric results) 96 % [facility] Body mass index (BMI) [Ratio] 40.36 kg/m2 No rmal (applies to non-numeric results) 40.36 kg/m2 [facility] Body height 157.2768 cm Normal (applies to non-numeric res ults) 157.2768 cm [facility] Body weight Measured 100.1 kg Normal (applies to n on-numeric results) 100.1 kg [facility] Inhaled oxygen concentration 21 % Normal (appl ies to non-numeric results) 21 % [facility] Diastolic blood pressure 84 mm[Hg] 84 mm[Hg] LES ([facility]) Body height 62 [in_i] 62 [in_i] [facility]OND[facility]IN ([facility]) Body mass index (BMI) [Ratio] 42 kg/m2 42 kg/ m2 LES ([facility]) Systolic blood pressure 125 mm[Hg] 125 mm[Hg] A [facility] ([facility]) Body weight 3672 [oz_av] 3672 [oz_av] LES ([facility]) Diastolic blood pressure 84 mm[Hg] 84 mm[Hg] LES ([facility]) Body height 62 [in_i] 62 [in_i] LES ([facility]) Body mass index (BMI) [Ratio] 42 kg/m2 42 kg/ m2 LES ([facility]) Systolic blood pressure 125 mm[Hg] 125 mm[Hg] A [facility] ([facility]) Body weight 3672 [oz_av] 3672 [oz_av] LES ([facility]) Diastolic blood pressure 84 mm[Hg] 84 mm[Hg] LES ([facility]) Body height 62 [in_i] 62 [in_i] LES ([facility]) Body mass index (BMI) [Ratio] 42 kg/m2 42 kg/ m2 LES ([facility]) Systolic blood pressure 125 mm[Hg] 125 mm[Hg] A THENA ([facility]) Body weight 3672 [oz_av] 3672 [oz_av] LES ([facility]) Diastolic blood pressure 84 mm[Hg] 84 mm[Hg] LES ([facility]) Body height 62 [in_i] 62 [in_i] LES ([facility]) Body mass index (BMI) [Ratio] 42 kg/m2 42 kg/ m2 LES ([facility]) Systolic blood pressure 125 mm[Hg] 125 mm[Hg] A THENA ([facility]) Body weight 3672 [oz_av] 3672 [oz_av] LES ([facility]) Diastolic blood pressure 84 mm[Hg] 84 mm[Hg] LES ([facility]) Body height 62 [in_i] 62 [in_i] LES ([facility]) Body mass index (BMI) [Ratio] 42 kg/m2 42 kg/ m2 LES ([facility]) Systolic blood pressure 125 mm[Hg] 125 mm[Hg] A THENA ([facility]) Body weight 3672 [oz_av] 3672 [oz_av] LES ([facility]) Systolic blood pressure 134 mm[Hg] 134 mm[Hg] M EDENT ([facility]) Body mass index (BMI) [Ratio] 25.3 kg/m2 25.3 k g/m2 [facility] ([facility]) Body weight 230.38 [lb_av] 230.38 [lb_av] MEDEN T ([facility]) Heart rate 75 /min 75 /min [facility] ([facility]) Body temperature 97.0 [degF] 97.0 [degF] [facility] ([facility]) Body temperature 36.1 Byron 36.1 Byron [facility] ( [facility]) Oxygen saturation in Arterial blood by Pulse oximetry 97 % 97 % [facility] ([facility]) Diastolic blood pressure 88 mm[Hg] 88 mm[Hg] [facility] ([facility]) Body height 80.00 [in_i] 80.00 [in_i] [facility] ([facility] 6'8" Heart rate 75 /min 75 /min [facility] ([facility]) Body temperature 97.0 [degF] 97.0 [degF] [facility] ([facility]) Body height 62.00 [in_i] 62.00 [in_i] [facility] ([facility]) 5'2" Body weight 230.00 [lb_av] 230.00 [lb_av] MED[facility] T ([facility]) Body mass index (BMI) [Ratio] 42.1 kg/m2 42.1 k g/m2 [facility] ([facility]) Systolic blood pressure 134 mm[Hg] 134 mm[Hg] M EDENT ([facility]) Diastolic blood pressure 88 mm[Hg] 88 mm[Hg] [facility] ([facility]) Body temperature 36.1 Byron 36.1 Byron [facility] ( [facility]) Oxygen saturation in Arterial blood by Pulse oximetry 97 % 97 % [facility] ([facility]) Body weight 225.00 [lb_av] 225.00 [lb_av] [facility] ([facility]) Body height 0.00 in Normal (applies to non-numeric resu lts) 0.00 in [facility] ([facility]) Body weight Measured 0.00 lbs Normal (applies to n on-numeric results) 0.00 lbs [facility] ([facility]) Body mass index (BMI) [Ratio] 0.00 kg/m2 No rmal (applies to non-numeric results) 0.00 kg/m2 [facility] ([facility]) Systolic blood pressure 0 mm[Hg] Normal (applies t o non-numeric results) 0 mm[Hg] [facility] ([facility]) Diastolic blood pressure 0 mm[Hg] Normal (applies to non-numeric results) 0 mm[Hg] [facility] ([facility]) Body temperature 97.8 [degF] 97.8 [degF] [facility] ([facility]) Body height 62.00 [in_i] 62.00 [in_i] [facility] ([facility]) 5'2" Body weight 225.12 [lb_av] 225.12 [lb_av] MEDEN T ([facility]) Body mass index (BMI) [Ratio] 41.2 kg/m2 41.2 k g/m2 [facility] ([facility]) Systolic blood pressure 139 mm[Hg] 139 mm[Hg] M EDENT ([facility]) Diastolic blood pressure 86 mm[Hg] 86 mm[Hg] [facility] ([facility]) Heart rate 82 /min 82 /min [facility] ([facility]) Body temperature 36.6 Byron 36.6 Byron [facility] ( [facility]) Oxygen saturation in Arterial blood by Pulse oximetry 99 % 99 % [facility]) ID Date Data Source [id number] 12/09/2019 11:19:23 AM [facility] Name Value Range Interpretation Code Description Data Source(s) WEIGHT RECORDED 225 lb 225 lb [facility] Body height Measured 62.48 in 62.48 in [facility] Patient Treatment Plan of Care Planned Activity Planned Date Details Description Data Source (s) Levothyroxine Sodium 0.2 MG Oral Tablet 12/09/2019 12:00:00 AM [facility] Acetaminophen 325 MG / Oxycodone Hydrochloride 5 MG Or al Tablet 08/13/2019 12:00:00 AM [facility] Levothyroxine Sodium 0.2 MG Oral Tablet 08/19/2018 12:00:00 AM [facility] 24 HR venlafaxine 75 MG Extended Release Oral Capsule 12/17/2016 12:00:00 AM [facility] Cholecalciferol 1000 UNT Oral Capsule 06/04/2013 12:00:00 AM [facility] vilazodone hydrochloride 10 MG Oral Tablet [Viibryd] LES ([facility]) topiramate 50 MG Oral Tablet LES ([facility]) Sertraline 50 MG Oral Tablet LES ([facility]) Prednisone 20 MG Oral Tablet LES ([facility]) Acetaminophen 325 MG / Oxycodone Hydrochloride 5 MG Oral Tablet LES ([facility]) Oxycodone Hydrochloride 5 MG Oral Tablet LES ([facility]) Ondansetron 4 MG Disintegrating Oral Tablet LES ([facility]) Omeprazole 40 MG Delayed Release Oral Capsule LES ([facility]) lamotrigine 25 MG Oral Tablet LES ([facility]) Ibuprofen 800 MG Oral Tablet LES ([facility]) Hydroxyzine Hydrochloride 25 MG Oral Tablet LES ([facility]) Amphetamine aspartate 5 MG / Amphetamine Sulfate 5 MG / Dextroamphetamine saccharate 5 MG / Dextroamphetamine Sulfate 5 MG Oral Tablet LES ([facility]) buspirone hydrochloride 10 MG Oral Tablet LES ([facility]) 24 HR Bupropion Hydrochloride 300 MG Extended Release Oral Tablet LES ([facility]) 24 HR Bupropion Hydrochloride 150 MG Extended Release Oral Tablet LES ([facility]) aripiprazole 5 MG Oral Tablet LES ([facility]) aripiprazole 2 MG Oral Tablet LES ([facility]) Amoxicillin 500 MG Oral Capsule LES ([facility]) vilazodone hydrochloride 10 MG Oral Tablet [Viibryd] LES ([facility]) topiramate 50 MG Oral Tablet LES ([facility]) Sertraline 50 MG Oral Tablet LES ([facility]) Prednisone 20 MG Oral Tablet LES ([facility]) Acetaminophen 325 MG / Oxycodone Hydrochloride 5 MG Oral Tablet LES ([facility]) Oxycodone Hydrochloride 5 MG Oral Tablet LES ([facility]) Ondansetron 4 MG Disintegrating Oral Tablet LES ([facility]) Omeprazole 40 MG Delayed Release Oral Capsule LES ([facility]) Ibuprofen 800 MG Oral Tablet LES ([facility]) buspirone hydrochloride 10 MG Oral Tablet LES ([facility]) 24 HR Bupropion Hydrochloride 300 MG Extended Release Oral Tablet LES ([facility]) 24 HR Bupropion Hydrochloride 150 MG Extended Release Oral Tablet LES ([facility]) aripiprazole 5 MG Oral Tablet LES ([facility]) aripiprazole 2 MG Oral Tablet LES ([facility]) Amoxicillin 500 MG Oral Capsule LES ([facility]) vilazodone hydrochloride 10 MG Oral Tablet [Viibryd] LES ([facility]) Sertraline 50 MG Oral Tablet LES ([facility]) Acetaminophen 325 MG / Oxycodone Hydrochloride 5 MG Oral Tablet LES ([facility]) Oxycodone Hydrochloride 5 MG Oral Tablet LES ([facility]) Ondansetron 4 MG Disintegrating Oral Tablet LES ([facility]) Omeprazole 40 MG Delayed Release Oral Capsule LES ([facility]) Ibuprofen 800 MG Oral Tablet LES ([facility]) buspirone hydrochloride 10 MG Oral Tablet LES ([facility]) 24 HR Bupropion Hydrochloride 300 MG Extended Release Oral Tablet LES ([facility]) 24 HR Bupropion Hydrochloride 150 MG Extended Release Oral Tablet LES ([facility]) aripiprazole 5 MG Oral Tablet LES ([facility]) aripiprazole 2 MG Oral Tablet LES ([facility]) Amoxicillin 500 MG Oral Capsule LES ([facility]) liothyronine sodium 0.005 MG Oral Tablet [Cytomel] [facility] ([facility]) 24 HR Bupropion Hydrochloride 150 MG Extended Release Oral Tablet [Wellbutrin] [facility] vilazodone hydrochloride 10 MG Oral Tablet [Viibryd] LES ([facility]) Sertraline 50 MG Oral Tablet LES ([facility]) Prednisone 20 MG Oral Tablet LES ([facility]) Acetaminophen 325 MG / Oxycodone Hydrochloride 5 MG Oral Tablet LES ([facility]) Oxycodone Hydrochloride 5 MG Oral Tablet LES ([facility]) Ondansetron 4 MG Disintegrating Oral Tablet LES ([facility]) Omeprazole 40 MG Delayed Release Oral Capsule LES ([facility]) Ibuprofen 800 MG Oral Tablet LES ([facility]) buspirone hydrochloride 10 MG Oral Tablet LES ([facility]) 24 HR Bupropion Hydrochloride 300 MG Extended Release Oral Tablet LES ([facility]) 24 HR Bupropion Hydrochloride 150 MG Extended Release Oral Tablet LES ([facility]) aripiprazole 5 MG Oral Tablet LES ([facility]) aripiprazole 2 MG Oral Tablet LES ([facility]) Amoxicillin 500 MG Oral Capsule LES ([facility]) Sertraline 50 MG Oral Tablet LES ([facility]) Prednisone 20 MG Oral Tablet LES ([facility]) Acetaminophen 325 MG / Oxycodone Hydrochloride 5 MG Oral Tablet LES ([facility]) Ondansetron 4 MG Disintegrating Oral Tablet LES ([facility]) Ibuprofen 800 MG Oral Tablet LES ([facility]) buspirone hydrochloride 10 MG Oral Tablet LES ([facility]) 24 HR Bupropion Hydrochloride 300 MG Extended Release Oral Tablet LES ([facility]) 24 HR Bupropion Hydrochloride 150 MG Extended Release Oral Tablet LES ([facility]) aripiprazole 5 MG Oral Tablet LES ([facility]) aripiprazole 2 MG Oral Tablet LES ([facility]) Amoxicillin 500 MG Oral Capsule LES ([facility]) [facility]
[2021-01-23] MEDS ORDERED: COMBIVENT RESPIMAT 100-20MCG INHALER 4GM INH STA (17:34)
--- NOTE | 2021-01-23 18:17 | ECGEPIP ---
[facility] - ED Test Date: 2021-01-23 Pat Name: HANK ARCOS Department: Room: - Gender: Female Move Coordinator: ISABELA : 1985 Requested By: MELECIO Hutchison PA-C Order Number: [id number] Reading MD: Juan Luis Garsia Measurements Intervals [place] Rate: 81 P: 52 AR: 154 QRS: -18 QRSD: 94 T: 22 QT: 386 QTc: 448 Interpretive Statements Normal sinus rhythm with sinus arrhythmia Nonspecific T wave abnormality SIMILAR TO 05/04/17 Electronically Signed on 01-23-2021 18:16:56 EST by Juan Luis Garsia
[2021-01-23 18:32] LABS: BASO # 0.1 10^3/uL (0.0-0.2); BASO % 1.3 % (0.0-1.0); EOS # 0.5 10^3/uL (0.0-0.5); EOS % 6.7 % (0.0-3.0); HEMATOCRIT 39.4 % (36.0-47.0); HEMOGLOBIN 13.8 g/dl (12.0-15.5); LYMPH # 1.2 10^3/uL (1.5-5.0); LYMPH % 15.6 % (24.0-44.0); MEAN CORPUSCULAR HEMOGLOBIN 31.7 pg (27.0-33.0); MEAN CORPUSCULAR VOLUME 90.6 fl (80.0-96.0); MONO # 0.3 10^3/uL (0.0-0.8); NEUTROPHILS # 5.4 10^3/uL (1.5-8.5); NEUTROPHILS % 72.1 % (36.0-66.0); PLATELET COUNT, AUTOMATED 340 10^3/uL (150-450); RED BLOOD COUNT 4.35 10^6/uL (4.00-5.40); WHITE BLOOD COUNT 7.5 10^3/uL (4.0-10.0)
[2021-01-23 18:44] LABS: INR 0.98; PROTHROMBIN TIME 13.4 SECONDS (12.7-14.5)
[2021-01-23 19:02] LABS: ALBUMIN 4.5 GM/DL (3.2-5.2); BILIRUBIN,DIRECT 0.2 MG/DL (0.0-0.2); BILIRUBIN,TOTAL 0.5 MG/DL (0.2-1.0); THYROID STIMULATING HORMONE 0.115 uIU/ML (0.358-3.740); THYROXINE (T4) 14.7 UG/DL (4.5-12.0); TOTAL PROTEIN 7.6 GM/DL (6.4-8.2)
[2021-01-23] MEDS ORDERED: ONDANSETRON 4MG/2ML VIAL IV ONE (19:20)
[2021-01-23] MEDS ORDERED: NS 1,000 ML IV ONE (19:20)
[2021-01-23] MEDS: MAG SULF 1GM/100ML (MAG RUN) 1 GM in IV 1 EA IV SCH ×2 (19:20→19:30)
--- NOTE | 2021-01-23 19:24 | REP ---
INDICATION: DYSPNEA/COUGH. COMPARISON: Portable chest, 07/02/2020. TECHNIQUE: Upright AP portable chest image was obtained. FINDINGS: The lungs are clear. The heart borders mediastinum and pulmonary vascular pattern normal. The upper abdominal bowel gas pattern is normal. There are no bony abnormalities of the chest. IMPRESSION: No evidence of acute cardiopulmonary pathology. <Electronically signed by Kelvin Shukla > 01/23/211919
[2021-01-23 19:33] LABS: CK-MB VALUE MASS < 1.0 NG/ML (<3.6); CPK CREATINE PHOSPHOKINASE 90 U/L (26-192); MB/CK RELATIVE INDEX 1.11 (< OR =4); TROPONIN I < 0.02 NG/ML (< 0.10)
[2021-01-23] MEDS ORDERED: KETOROLAC 30 MG/ML 1ML VIAL IV ONE (19:35)
[2021-01-23] MEDS ORDERED: PRED20TA PO (20:47)
[2021-01-23 21:06] VITALS: BP 128/77
== END 2021-01-23 21:08 | disposition home or self-care (01) ==
LOC: M ED 16:20
DX: J45.901 Unspecified asthma with (acute) exacerbation (principal); R11.2 Nausea with vomiting, unspecified; R19.7 Diarrhea, unspecified; B97.10 Unspecified enterovirus as the cause of diseases classified elsewhere; M79.10 Myalgia, unspecified site; R51.9 Headache, unspecified; Z85.850 Personal history of malignant neoplasm of thyroid; Z92.3 Personal history of irradiation; E03.9 Hypothyroidism, unspecified; Z98.84 Bariatric surgery status; Z79.899 Other long term (current) drug therapy; Z88.2 Allergy status to sulfonamides
CPT/HCPCS: 71045; 80047; 80076; 82550; 82553; 83605; 83880; 84436; 84443; 84702; 85025; 85610; 87040; 93005; 94640; 94664; 94760; 96365; 96366; 96375; 99284; J1885; J2405; J2930; J3475

== ENCOUNTER → 2021-01-23 | Outpatient (REF) | payer OTHER | LOC: M LAB REF 16:20 | PROVIDERS: ATTEND Physician Assistant Medical | DX: R05.9 Cough, unspecified (principal); R50.9 Fever, unspecified ==

== ENCOUNTER → 2021-03-14 | Outpatient (REF) ==
[~2021-03-14] MED LIST changes: +AMPH1CAP16; +LAMO100T3; +VIIB40TA
== END ==
LOC: M LABSMTC 10:09
PROVIDERS: ATTEND Family Medicine
DX: Z20.822 Contact with and (suspected) exposure to COVID-19 (principal)

== ENCOUNTER → 2021-05-14 | Outpatient (REF) | payer OTHER ==
[2021-05-14 09:46] LABS: ALBUMIN 3.9 GM/DL (3.2-5.2); BLOOD UREA NITROGEN 9 MG/DL (7-18); CALCIUM LEVEL 9.3 MG/DL (8.5-10.1); CARBON DIOXIDE LEVEL 29 MEQ/L (21-32); CHLORIDE LEVEL 108 MEQ/L (98-107); CREATININE FOR GFR 0.72 MG/DL (0.55-1.30); FREE T4 1.45 NG/DL (0.76-1.46); GLOMERULAR FILTRATION RATE > 60.0 (>60); GLUCOSE, FASTING 88 MG/DL (70-100); PHOSPHORUS LEVEL 3.6 MG/DL (2.5-4.9); POTASSIUM SERUM 4.2 MEQ/L (3.5-5.1); SODIUM LEVEL 141 MEQ/L (136-145); THYROID STIMULATING HORMONE < 0.005 uIU/ML (0.358-3.740)
[2021-05-15 11:08] LABS: THRYOGLOBULIN ANTIBODIES (ATA) < 1.0 IU/mL (0.0-0.9); THYROGLOBULIN QUANTITATIVE 1.2 ng/mL (1.5-38.5)
[2021-05-15 12:55] LABS: THYROGLOBULIN ANTIBODY < 15.0 U/ML (<60.0)
== END ==
LOC: M LAB REF 08:36
PROVIDERS: ATTEND Internal Medicine Endocrinology, Diabetes & Metabolism
DX: C73 Malignant neoplasm of thyroid gland (principal); E89.0 Postprocedural hypothyroidism

== ENCOUNTER → 2021-11-06 | Outpatient (CLI) | payer OTHER | LOC: M WUC 13:05 | PROVIDERS: ATTEND Student in an Organized Health Care Education/Training Program | DX: M25.571 Pain in right ankle and joints of right foot (principal) ==

== ENCOUNTER 2021-11-08 20:26 | Emergency (ER) | payer OTHER ==
[~2021-11-08] VITALS: Ht 157.5 cm; Wt 73.1 kg
[2021-11-09 00:38] VITALS: BP 123/65
== END 2021-11-09 00:40 | disposition home or self-care (01) ==
LOC: M ED 20:26
DX: S90.31XA Contusion of right foot, initial encounter (principal); W22.8XXA Striking against or struck by other objects, initial encounter; Y92.099 Unspecified place in other non-institutional residence as the place of occurrence of the external cause; G47.33 Obstructive sleep apnea (adult) (pediatric); Z98.84 Bariatric surgery status; Z85.850 Personal history of malignant neoplasm of thyroid; Z79.890 Hormone replacement therapy; Z79.899 Other long term (current) drug therapy; Z88.6 Allergy status to analgesic agent; Z88.2 Allergy status to sulfonamides

== ENCOUNTER → 2022-11-25 | Outpatient (REF) | payer OTHER ==
[2022-11-25 19:22] LABS: BASO # 0.1 10^3/uL (0.0-0.2); BASO % 1.5 % (0.0-1.0); EOS # 0.5 10^3/uL (0.0-0.5); EOS % 7.2 % (0.0-3.0); HEMATOCRIT 40.8 % (36.0-47.0); HEMOGLOBIN 13.5 g/dl (12.0-15.5); LYMPH # 2.3 10^3/uL (1.5-5.0); LYMPH % 30.9 % (24.0-44.0); MEAN CORPUSCULAR HEMOGLOBIN 31.8 pg (27.0-33.0); MEAN CORPUSCULAR HGB CONC 33.1 g/dl (32.0-36.5); MONO # 0.4 10^3/uL (0.0-0.8); MONO % 4.9 % (2.0-8.0); NEUTROPHILS % 55.2 % (36.0-66.0); PLATELET COUNT, AUTOMATED 350 10^3/uL (150-450); RED BLOOD COUNT 4.25 10^6/uL (4.00-5.40); WHITE BLOOD COUNT 7.3 10^3/uL (4.0-10.0)
[2022-11-25 20:07] LABS: HEMOGLOBIN A1c 4.8 % (4.0-6.0)
[2022-11-25 20:34] LABS: ALBUMIN 4.4 G/DL (3.2-5.2); ALKALINE PHOSPHATASE 50 U/L (46-116); ALT/SGPT 11 U/L (7.0-40); AST/SGOT 16 U/L (<34); BILIRUBIN,TOTAL 0.5 MG/DL (0.3-1.2); BLOOD UREA NITROGEN 11 MG/DL (9-23); CALCIUM LEVEL 9.3 MG/DL (8.5-10.1); CARBON DIOXIDE LEVEL 29 MMOL/L (20-31); CHLORIDE LEVEL 106 MMOL/L (98-107); CHOLESTEROL LEVEL 184 MG/DL (<200); CHOLESTEROL RISK RATIO 2.29 (<5); CREATININE FOR GFR 0.97 MG/DL (0.55-1.30); GLOMERULAR FILTRATION RATE > 60.0 (>60); GLUCOSE, FASTING 79 MG/DL (60-100); HDL CHOLESTEROL 80.1 MG/DL (>40); LDL CHOLESTEROL 83.3 MG/DL (<100); NON-HDL-C 103.9 MG/DL; POTASSIUM SERUM 4.4 MMOL/L (3.5-5.1); SODIUM LEVEL 143 MMOL/L (136-145); TOTAL PROTEIN 6.9 G/DL (5.7-8.2); TRIGLYCERIDES LEVEL 103 MG/DL (<150)
[2022-11-25 20:35] LABS: THYROID STIMULATING HORMONE 40.743 uIU/ML (0.55-4.78)
== END ==
LOC: M LAB REF 16:59
PROVIDERS: ATTEND Nurse Practitioner Family
DX: Z13.228 Encounter for screening for other metabolic disorders (principal)

== ENCOUNTER → 2022-12-19 | Outpatient (REF) | payer OTHER ==
[~2022-12-19] MED LIST changes: +AMOX875T PO; +DIFL150T PO; +PHEN37.58
== END ==
LOC: M LAB REF 16:36
PROVIDERS: ATTEND Nurse Practitioner Family
DX: B34.9 Viral infection, unspecified (principal)

== ENCOUNTER → 2023-03-26 | Outpatient (REF) | payer OTHER | LOC: M LAB REF 13:51 | PROVIDERS: ATTEND Nurse Practitioner Family | DX: J02.9 Acute pharyngitis, unspecified (principal) ==

== ENCOUNTER → 2023-04-10 | Outpatient (CLI) | payer OTHER | LOC: M RAD 09:32 | PROVIDERS: ATTEND Nurse Practitioner Family | DX: R59.0 Localized enlarged lymph nodes (principal) ==

== ENCOUNTER → 2023-04-22 | Outpatient (REF) | payer OTHER ==
[2023-04-22 13:46] LABS: BASO # 0.1 10^3/uL (0.0-0.2); BASO % 1.4 % (0.0-1.0); EOS # 0.8 10^3/uL (0.0-0.5); EOS % 11.9 % (0.0-3.0); HEMATOCRIT 39.8 % (36.0-47.0); HEMOGLOBIN 13.4 g/dl (12.0-15.5); LYMPH % 30.2 % (24.0-44.0); MEAN CORPUSCULAR HEMOGLOBIN 31.3 pg (27.0-33.0); MEAN CORPUSCULAR HGB CONC 33.7 g/dl (32.0-36.5); MONO # 0.3 10^3/uL (0.0-0.8); MONO % 4.6 % (2.0-8.0); NEUTROPHILS # 3.4 10^3/uL (1.5-8.5); NEUTROPHILS % 51.7 % (36.0-66.0); PLATELET COUNT, AUTOMATED 346 10^3/uL (150-450); RED BLOOD COUNT 4.28 10^6/uL (4.00-5.40); WHITE BLOOD COUNT 6.5 10^3/uL (4.0-10.0)
[2023-04-22 14:31] LABS: ALBUMIN 4.3 G/DL (3.2-5.2); ALKALINE PHOSPHATASE 60 U/L (46-116); ALT/SGPT < 9 U/L (7.0-40); AST/SGOT 10 U/L (<34); BILIRUBIN,TOTAL 0.4 MG/DL (0.3-1.2); BLOOD UREA NITROGEN 8 MG/DL (9-23); CARBON DIOXIDE LEVEL 27 MMOL/L (20-31); CHLORIDE LEVEL 105 MMOL/L (98-107); CHOLESTEROL LEVEL 160 MG/DL (<200); CREATININE FOR GFR 0.73 MG/DL (0.55-1.30); GLOMERULAR FILTRATION RATE > 60.0 (>60); GLUCOSE, FASTING 82 MG/DL (60-100); HDL CHOLESTEROL 83.9 MG/DL (>40); LDL CHOLESTEROL 62.3 MG/DL (<100); MAGNESIUM LEVEL 2.1 MG/DL (1.8-2.4); NON-HDL-C 76.1 MG/DL; POTASSIUM SERUM 4.1 MMOL/L (3.5-5.1); SODIUM LEVEL 139 MMOL/L (136-145); THYROID STIMULATING HORMONE 0.391 uIU/ML (0.55-4.78); TOTAL 25(OH) VITAMIN D 23.4 NG/ML (20.0-100.0); TOTAL PROTEIN 6.5 G/DL (5.7-8.2); TRIGLYCERIDES LEVEL 69 MG/DL (<150)
== END ==
LOC: M LAB REF 12:44
PROVIDERS: ATTEND Nurse Practitioner Family
DX: E66.9 Obesity, unspecified (principal)

== ENCOUNTER → 2023-04-28 | Outpatient (REF) | payer OTHER | LOC: M LAB REF 16:05 | PROVIDERS: ATTEND Physician Assistant Medical | DX: R05.9 Cough, unspecified (principal) ==

== ENCOUNTER 2023-08-25 07:41 | Emergency (ER) | payer OTHER ==
[~2023-08-25] VITALS: Ht 157.5 cm; Wt 81.4 kg
[2023-08-25 08:51] LABS: BASO # 0.1 10^3/uL (0.0-0.2); EOS # 1.2 10^3/uL (0.0-0.5); EOS % 11.8 % (0.0-3.0); HEMATOCRIT 41.8 % (36.0-47.0); HEMOGLOBIN 14.7 g/dl (12.0-15.5); LYMPH # 1.2 10^3/uL (1.5-5.0); MEAN CORPUSCULAR HEMOGLOBIN 31.8 pg (27.0-33.0); MEAN CORPUSCULAR HGB CONC 35.2 g/dl (32.0-36.5); MEAN CORPUSCULAR VOLUME 90.5 fl (80.0-96.0); MONO # 0.4 10^3/uL (0.0-0.8); MONO % 4.2 % (2.0-8.0); NEUTROPHILS # 7.2 10^3/uL (1.5-8.5); NEUTROPHILS % 70.7 % (36.0-66.0); PLATELET COUNT, AUTOMATED 397 10^3/uL (150-450); RED BLOOD COUNT 4.62 10^6/uL (4.00-5.40); WHITE BLOOD COUNT 10.2 10^3/uL (4.0-10.0)
[2023-08-25] MEDS: ONDANSETRON 4MG 2ML VIAL IV ONE (09:13)
[2023-08-25] MEDS: NS 1,000 ML IV ONE (09:13)
[2023-08-25] MEDS: MORPHINE 2 MG/ML 1ML VIAL IV ONE ×2 (09:14→12:42)
[2023-08-25 09:20] LABS: LIPASE 28 U/L (12-53)
[2023-08-25] MEDS: GASTROGRAFIN SOLUTION 30ML PO SCH (09:21)
[2023-08-25 09:22] LABS: ALBUMIN 4.3 G/DL (3.2-5.2); ALKALINE PHOSPHATASE 71 U/L (46-116); ALT/SGPT 15 U/L (7.0-40); AST/SGOT 16 U/L (<34); BILIRUBIN,DIRECT 0.1 MG/DL (<0.4); BILIRUBIN,TOTAL 0.5 MG/DL (0.3-1.2); BLOOD UREA NITROGEN 11 MG/DL (9-23); CALCIUM LEVEL 9.3 MG/DL (8.5-10.1); CARBON DIOXIDE LEVEL 24 MMOL/L (20-31); CHLORIDE LEVEL 109 MMOL/L (98-107); GLOMERULAR FILTRATION RATE > 60.0 (>60); GLUCOSE, FASTING 97 MG/DL (60-100); SODIUM LEVEL 140 MMOL/L (136-145); TOTAL PROTEIN 6.9 G/DL (5.7-8.2)
[2023-08-25] MEDS ORDERED: ISOVUE-370 76% 100ML VIAL As Ordered ONE (10:59)
[2023-08-25] MEDS ORDERED: hydrALAZINE 20MG/ML 1ML VIAL IV ONE (12:35)
[2023-08-25] MEDS: PANTOPRAZOLE 40MG VIAL IV ONE (12:42)
[2023-08-25 13:22] VITALS: BP 149/78; TEMP 97.1; O2SAT 97
[2023-08-25] MEDS ORDERED: ONDA-282 PO (13:34)
[2023-08-25] MEDS ORDERED: PROT1TAB2 PO (13:34)
[2023-08-25] MEDS ORDERED: TRAM50TA2 PO (13:34)
== END 2023-08-25 13:48 | disposition home or self-care (01) ==
LOC: M ED 07:41
DX: R11.2 Nausea with vomiting, unspecified (principal); R19.7 Diarrhea, unspecified; J45.909 Unspecified asthma, uncomplicated; G43.909 Migraine, unspecified, not intractable, without status migrainosus; Z98.84 Bariatric surgery status; Z79.899 Other long term (current) drug therapy; Z88.6 Allergy status to analgesic agent; Z88.2 Allergy status to sulfonamides
CPT/HCPCS: 74177; 80048; 80076; 83605; 83690; 85025; 86850; 86900; 86901; 96374; 96375; 96376; 99284; C9113; J2405; Q9963; Q9967

== ENCOUNTER 2024-09-24 09:57 | Emergency (ER) | payer OTHER, SELFPAY ==
[~2024-09-24] VITALS: Ht 157.5 cm; Wt 79.7 kg
[~2024-09-24 09:57] MED LIST changes: +ONDA-282 PO; +PROT1TAB2 PO; +TRAM50TA2 PO
[2024-09-24 10:00] VITALS: BP 135/80; TEMP 97.7; O2SAT 97
[2024-09-24] MEDS ORDERED: ALBU8.5H (10:08)
[2024-09-24] MEDS ORDERED: SYMB80INH (10:08)
[2024-09-24] MEDS ORDERED: LIOT5TAB6 (10:08)
[2024-09-24] MEDS ORDERED: LEVO150T7 (10:08)
[2024-09-24] MEDS: KETOROLAC 60 MG/2 ML VIAL IM ONE (11:50)
[2024-09-24 12:01] LABS: BASO # 0.1 10^3/uL (0.0-0.2); BASO % 1.5 % (0.0-1.0); EOS # 0.2 10^3/uL (0.0-0.5); EOS % 3.2 % (0.0-3.0); LYMPH # 1.2 10^3/uL (1.5-5.0); LYMPH % 24.5 % (24.0-44.0); MONO # 0.5 10^3/uL (0.0-0.8); MONO % 11.0 % (2.0-8.0); NEUTROPHILS # 2.8 10^3/uL (1.5-8.5); NEUTROPHILS % 59.6 % (36.0-66.0); PLATELET COUNT, AUTOMATED 346 10^3/uL (150-450)
[2024-09-24 12:04] LABS: KETONE, URINE AUTO RFX NEGATIVE (NEGATIVE); MUCUS, URINE RFX SMALL (NEGATIVE); NITRITE, URINE AUTO RFX NEGATIVE (NEGATIVE); RBC, URINE AUTO RFX 20 /HPF (0-3); SQUAM EPITHELIAL CELL UR AURFX 3 /HPF (0-6); WBC, URINE AUTO RFX 2 /HPF (0-3)
[2024-09-24 12:45] LABS: CALCIUM LEVEL 10.0 MG/DL (8.5-10.1); CARBON DIOXIDE LEVEL 27 MMOL/L (20-31); CHLORIDE LEVEL 105 MMOL/L (98-107); CREATININE FOR GFR 0.87 MG/DL (0.55-1.30); GLOMERULAR FILTRATION RATE 88.5 (>60); HCG, SERUM QUANTITATIVE < 2.6 MIU/ML (<4.2); POTASSIUM SERUM 3.7 MMOL/L (3.5-5.1); SODIUM LEVEL 143 MMOL/L (136-145)
[2024-09-24 12:49] LABS: LEUKOCYTE ESTERASE UR AUTO RFX 2+ (NEGATIVE)
== END 2024-09-24 13:06 | disposition home or self-care (01) ==
LOC: M ED 09:57
DX: N93.9 Abnormal uterine and vaginal bleeding, unspecified (principal); Z87.442 Personal history of urinary calculi; E03.9 Hypothyroidism, unspecified; Z88.2 Allergy status to sulfonamides; Z88.6 Allergy status to analgesic agent; Z97.5 Presence of (intrauterine) contraceptive device; C73 Malignant neoplasm of thyroid gland
CPT/HCPCS: 76830; 76856; 80048; 81001; 84702; 85025; 86850; 86900; 86901; 87086; 93976; 96372; 99283; J1885